=== PATIENT | male | born 1970 | race Caucasian/White ===

== ENCOUNTER 2017-07-13 12:02 | Inpatient (IN) | payer MEDICAID ==
[~2017-07-13] VITALS: Ht 177.8 cm; Wt 145.1 kg
[2017-07-13] MEDS ORDERED: Albuterol ud Inhalation HHN ONE (12:30)
[2017-07-13] MEDS ORDERED: Ipratropium 0.02% Inh Soln 2.5ml UD HHN ONE (12:30)
[2017-07-13] MEDS ORDERED: ZYLOPRIM300 MG ORAL (12:32)
[2017-07-13] MEDS ORDERED: METOPROLOL TART25 MG ORAL (12:32)
[2017-07-13] MEDS ORDERED: ZOCOR40 MG ORAL (12:32)
[2017-07-13] MEDS ORDERED: WARFARIN SODIUM4 MG ORAL (12:32)
[2017-07-13] MEDS ORDERED: METFORMIN HCL500 M1 ORAL (12:32)
[2017-07-13] MEDS ORDERED: FUROSEMIDE80 M1 ORAL (12:32)
[2017-07-13 13:10] LABS: HEMATOCRIT 48.7 % (42.0-52.0); MEAN CORPUSCULAR VOLUME 88 FL (80-99); PLATELET COUNT 321 K/UL (150-450); RED BLOOD COUNT 5.55 M/UL (4.70-6.10); RED CELL DISTRIBUTION WIDTH 15.3 % (11.6-14.8); WHITE BLOOD COUNT 11.4 K/UL (4.8-10.8)
[2017-07-13 13:16] LABS: ANION GAP 14 mmol/L (5-15); BLOOD UREA NITROGEN 22 mg/dL (7-18); CALCIUM 9.1 MG/DL (8.5-10.1); CARBON DIOXIDE 22 MMOL/L (21-32); CHLORIDE 102 MMOL/L (98-107); CREATININE 1.2 MG/DL (0.55-1.30); POTASSIUM 4.1 MMOL/L (3.5-5.1); SODIUM 138 MMOL/L (136-145)
[2017-07-13 13:36] LABS: ALANINE AMINOTRANSFERASE 40 U/L (12-78); ALBUMIN 3.1 G/DL (3.4-5.0); ALBUMIN/GLOBULIN RATIO 0.8 (1.0-2.7); ALKALINE PHOSPHATASE 92 U/L (46-116); ASPARTATE AMINO TRANSFERASE 32 U/L (15-37); BILIRUBIN,TOTAL 2.5 MG/DL (0.2-1.0); CKMB 1.6 NG/ML (0.0-3.6); CREATINE KINASE 69 U/L (26-308)
[2017-07-13 13:37] LABS: BILIRUBIN,DIRECT 1.1 MG/DL (0.0-0.3)
[2017-07-13 13:45] VITALS: BP 103/72
--- NOTE | 2017-07-13 14:05 | Emergency Room Report ---
History of Present Illness General Chief Complaint: Dyspnea/Respdistress Source: Patient, EMS Present Illness HPI 46-year-old male presents ED complaining of shortness of breath. Started this morning. Brought in by EMS. Wheezing. History of CHF and states he ran out of his Lasix yesterday. Denies any fevers or chills. Denies chest pain. States legs are very swollen. No other aggravating relieving factors. Denies any other associated symptoms Allergies: Coded Allergies: No Known Allergies (Unverified , 07/13/17) Patient History Past Medical History: CHF Past Surgical History: none Pertinent Family History: none Social History: Denies: smoking, alcohol use, drug use Immunizations: UTD Reviewed Nursing Documentation: PMH: Agreed; PSxH: Agreed Nursing Documentation-PMH Past Medical History: No History, Except For Hx Cardiac Problems: Yes - CHF, gout Review of Systems All Other Systems: negative except mentioned in HPI Physical Exam Vital Signs Date Time Temp Pulse Resp B/P (MAP) Pulse Ox O2 Delivery O2 Flow Rate FiO2 07/13/17 11:57 98.2 117 26 127/83 97 Room Air 98.2 07/13/17 12:35 2.0 28 Sp02 EP Interpretation: reviewed, normal General Appearance: no apparent distress, alert, GCS 15, non-toxic, obese Head: normocephalic, atraumatic Eyes: bilateral eye normal inspection, bilateral eye PERRL ENT: hearing grossly normal, normal pharynx, no angioedema, normal voice Neck: full range of motion, supple/symm/no masses Respiratory: chest non-tender, decreased breath sounds, speaking full sentences , wheezing Cardiovascular #1: regular rate, rhythm, no edema Cardiovascular #2: 2+ carotid (R), 2+ carotid (L), 2+ radial (R), 2+ radial (L) , 2+ dorsalis pedis (R), 2+ dorsalis pedis (L) Gastrointestinal: normal bowel sounds, non tender, soft, non-distended, no guarding, no rebound Rectal: deferred Genitourinary: normal inspection, no CVA tenderness Musculoskeletal: back normal, gait/station normal, normal range of motion, swelling - 2+ bilateral LEs Neurologic: alert, oriented x3, responsive, motor strength/tone normal, sensory intact, speech normal Psychiatric: judgement/insight normal, memory normal, mood/affect normal, no suicidal/homicidal ideation Reflexes: 3+ bicep (R), 3+ bicep (L), 3+ tricep (R), 3+ tricep (L), 3+ knee (R) , 3+ knee (L) Skin: normal color, no rash, warm/dry, well hydrated Lymphatic: no adenopathy Medical Decision Making Diagnostic Impression: Primary Impression: CHF (congestive heart failure) Qualified Codes: I50.9 - Heart failure, unspecified ER Course Hospital Course 46-year-old male presents ED complaining of shortness of breath, leg swelling Differential diagnoses include: CT/unstable angina, contusion, muscle strain, PTX, rib fracture Clinical course Patient placed on 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 After initial history and physical I ordered labs, EKG, chest x-ray labs reviewed- minimal leukocytosis, hemoglobin/hematocrit stable, electrolytes ok, trop > 0.06, BNP > 4000 EKG - NSR, no acute ischemic changes interpreted by me Chest x-ray- cardiomegaly, CHF aspiring given. Antibiotics given. Lasix given. Case discussed with Dr. Nina and he agreed to accept the patient to his service for further care and support I. I feel this is a highly complex case requiring extensive working including EKG/Rhythm strip, Xray/CT/US, Blood/urine lab work, repeat exams while in ED, and administration of strong opiates/narcotics for pain control, admission to hospital or close patient follow up. Diagnosis - CHF exacerbation admitted to telemetry in serious condition Labs Test 07/13/17 12:17 White Blood Count 11.4 K/UL (4.8-10.8) Red Blood Count 5.55 M/UL (4.70-6.10) Hemoglobin 15.0 G/DL (14.2-18.0) Hematocrit 48.7 % (42.0-52.0) Mean Corpuscular Volume 88 FL (80-99) Mean Corpuscular Hemoglobin 27.0 PG (27.0-31.0) Mean Corpuscular Hemoglobin Concent 30.8 G/DL (32.0-36.0) Red Cell Distribution Width 15.3 % (11.6-14.8) Platelet Count 321 K/UL (150-450) Mean Platelet Volume 6.9 FL (6.5-10.1) Neutrophils (%) (Auto) % (45.0-75.0) Lymphocytes (%) (Auto) % (20.0-45.0) Monocytes (%) (Auto) % (1.0-10.0) Eosinophils (%) (Auto) % (0.0-3.0) Basophils (%) (Auto) % (0.0-2.0) Differential Total Cells Counted 100 Neutrophils % (Manual) 72 % (45-75) Lymphocytes % (Manual) 17 % (20-45) Monocytes % (Manual) 11 % (1-10) Eosinophils % (Manual) 0 % (0-3) Basophils % (Manual) 0 % (0-2) Band Neutrophils 0 % (0-8) Platelet Estimate Adequate Platelet Morphology Normal Anisocytosis 1+ Sodium Level 138 MMOL/L (136-145) Potassium Level 4.1 MMOL/L (3.5-5.1) Chloride Level 102 MMOL/L (98-107) Carbon Dioxide Level 22 MMOL/L (21-32) Anion Gap 14 mmol/L (5-15) Blood Urea Nitrogen 22 mg/dL (7-18) Creatinine 1.2 MG/DL (0.55-1.30) Estimat Glomerular Filtration Rate > 60 mL/min (>60) Glucose Level 211 MG/DL (74-106) Lactic Acid Level 2.80 mmol/L (0.66-2.22) Calcium Level 9.1 MG/DL (8.5-10.1) Total Bilirubin 2.5 MG/DL (0.2-1.0) Direct Bilirubin 1.1 MG/DL (0.0-0.3) Aspartate Amino Transf (AST/SGOT) 32 U/L (15-37) Alanine Aminotransferase (ALT/SGPT) 40 U/L (12-78) Alkaline Phosphatase 92 U/L (46-116) Total Creatine Kinase 69 U/L (26-308) Creatine Kinase MB 1.6 NG/ML (0.0-3.6) Creatine Kinase MB Relative Index 2.3 Troponin I 0.062 ng/mL (0.000-0.056) Pro-B-Type Natriuretic Peptide 4945 pg/mL (0-125) Total Protein 7.0 G/DL (6.4-8.2) Albumin 3.1 G/DL (3.4-5.0) Globulin 3.9 g/dL Albumin/Globulin Ratio 0.8 (1.0-2.7) EKG Diagnostic Results Rate: normal ST Segments: no acute changes ASA given to the pt in ED: Yes Rhythm Strip Diag. Results EP Interpretation: yes Rhythm: NSR, no PVC's, no ectopy Chest X-Ray Diagnostic Results Chest X-Ray Diagnostic Results : Chest X-Ray Ordered: Yes # of Views/Limited/Complete: 1 View Indication: Shortness of Breath EP Interpretation: Yes Interpretation: no consolidation, no effusion, no pneumothorax, other - cardiomegaly. chf Impression: Other - chf Electronically Signed by: Electronically signed by Amadeo Valdez MD Last Vital Signs Date Time Temp Pulse Resp B/P (MAP) Pulse Ox O2 Delivery O2 Flow Rate FiO2 07/13/17 13:45 103 28 103/72 96 Nasal Cannula 2.0 07/13/17 12:44 28 07/13/17 11:57 98.2 98.2 Status: improved Disposition: ADMITTED INPATIENT Condition: Serious Referrals: NON PHYSICIAN (PCP) Amadeo Valdez MD July 13, 2017 14:05
--- NOTE | 2017-07-13 14:15 | Diagnostic Imaging Report ---
Indication: Cough Technique: One view of the chest Comparison: none Findings: Body habitus limits evaluation. The heart is enlarged. There is pleural fluid on the right. There is right perihilar and basilar atelectasis There is some right basilar opacity, likely combination of pleural fluid and infiltrate. Left lung and pleural space are clear Impression: Thyromegaly. Right basilar pleural fluid atelectasis, and likely infiltrate
[2017-07-13 14:40] VITALS: BP 115/62
[2017-07-13] MEDS: NovoLOG Insulin Flexpen SUBQ SCH ×2 (17:40→22:59)
[2017-07-13] MEDS ORDERED: Albuterol/Ipratropium 3ml neb HHN PRN (18:45)
--- NOTE | 2017-07-13 19:10 | Consultation ---
Consult Note Consult Note PULMONARY CONSULTATION REFERRING PHYSICIAN: Ronny Thompson MD REASON FOR CONSULTATION: SOB HPI: 46 yo morbidly obese male h/o CHF, MARSHA not on CPAP, PE on A/C, HTN, HL and DM p/w several days of inc SOB, PND, orthopnea, wheezing 2/2 being out of lasix. No F/C, no BAKER, no dizziness, no N/V/D/C. He has been on/off his meds x several months and recently got into the [facility] clinic but was unable to fill his Rx's 2/2 insurance issues. In the ER he was AFVSS x for ST, sating well on RA-2L, BNP elevated, trop elevated, CXR with PVC and b effusions. PMH: CHF, PE, MARSHA, DM, HTN, morbid obesity PSH: R hip surgery as a child' ALL: NKDA MEDS: Active Scripts Medications Dose Route/Sig Max Daily Dose Days Date Category Metoprolol Tartrate* (Metoprolol Tartrate) 25 Mg Tablet 25 Mg ORAL EVERY 12 HOURS 07/13/17 Reported Zocor (Simvastatin) 40 Mg Tablet 40 Mg ORAL BEDTIME 07/13/17 Reported Lasix* (Furosemide) 80 Mg Tablet 80 Mg ORAL BID 07/13/17 Reported Metformin Hcl* (Metformin HCl) 500 Mg Tablet 500 Mg ORAL TWICE A DAY 07/13/17 Reported Warfarin Sod* (Warfarin Sodium) 4 Mg Tablet 4 Mg ORAL DAILY 07/13/17 Reported Zyloprim* (Allopurinol) 300 Mg Tablet 300 Mg ORAL DAILY 07/13/17 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, out of work x 5 years, originally from [place], lives in [facility], single, no kids, no pets, no T/E/D use FHx: N/C ROS: Neg other than HPI PE: Last 24 Hour Vital Signs Date Time Temp Pulse Resp B/P (MAP) Pulse Ox O2 Delivery O2 Flow Rate FiO2 07/13/17 15:32 113 07/13/17 14:40 97.0 115 21 115/62 97 Nasal Cannula 2.0 97.0 07/13/17 14:20 98.1 106 21 113/78 97 Nasal Cannula 2.0 28 98.2 07/13/17 13:45 103 28 103/72 96 Nasal Cannula 2.0 07/13/17 12:44 115 22 98 Nasal Cannula 2.0 28 07/13/17 12:37 113 24 Nasal Cannula 2.0 28 07/13/17 12:35 113 24 95 Nasal Cannula 2.0 28 07/13/17 12:21 114 27 Room Air 07/13/17 11:57 98.2 117 26 127/83 97 Room Air 98.2 GEN: Obese male, mild respiratory distress HEENT: NC/AT, OPC c MP 4 NECK: Supple s LAD, JVD to AoM CHEST: Scattered EEW and BiB rales COR: Tachy but regular ABD: Dist, S/NT c NABS EXT: 4+ CHRISTA, no C/C, groin erythema and warmth CXR: PVC, b effusions Laboratory Tests Test 07/13/17 12:17 07/13/17 14:00 White Blood Count 11.4 K/UL (4.8-10.8) H Red Blood Count 5.55 M/UL (4.70-6.10) Hemoglobin 15.0 G/DL (14.2-18.0) Hematocrit 48.7 % (42.0-52.0) Mean Corpuscular Volume 88 FL (80-99) Mean Corpuscular Hemoglobin 27.0 PG (27.0-31.0) Mean Corpuscular Hemoglobin Concent 30.8 G/DL (32.0-36.0) L Red Cell Distribution Width 15.3 % (11.6-14.8) H Platelet Count 321 K/UL (150-450) Mean Platelet Volume 6.9 FL (6.5-10.1) Neutrophils (%) (Auto) % (45.0-75.0) Lymphocytes (%) (Auto) % (20.0-45.0) Monocytes (%) (Auto) % (1.0-10.0) Eosinophils (%) (Auto) % (0.0-3.0) Basophils (%) (Auto) % (0.0-2.0) Differential Total Cells Counted 100 Neutrophils % (Manual) 72 % (45-75) Lymphocytes % (Manual) 17 % (20-45) L Monocytes % (Manual) 11 % (1-10) H Eosinophils % (Manual) 0 % (0-3) Basophils % (Manual) 0 % (0-2) Band Neutrophils 0 % (0-8) Platelet Estimate Adequate Platelet Morphology Normal Anisocytosis 1+ Sodium Level 138 MMOL/L (136-145) Potassium Level 4.1 MMOL/L (3.5-5.1) Chloride Level 102 MMOL/L (98-107) Carbon Dioxide Level 22 MMOL/L (21-32) Anion Gap 14 mmol/L (5-15) Blood Urea Nitrogen 22 mg/dL (7-18) H Creatinine 1.2 MG/DL (0.55-1.30) Estimat Glomerular Filtration Rate > 60 mL/min (>60) Glucose Level 211 MG/DL (74-106) H Lactic Acid Level 2.80 mmol/L (0.66-2.22) H 2.00 mmol/L (0.66-2.22) Calcium Level 9.1 MG/DL (8.5-10.1) Total Bilirubin 2.5 MG/DL (0.2-1.0) H Direct Bilirubin 1.1 MG/DL (0.0-0.3) H Aspartate Amino Transf (AST/SGOT) 32 U/L (15-37) Alanine Aminotransferase (ALT/SGPT) 40 U/L (12-78) Alkaline Phosphatase 92 U/L (46-116) Total Creatine Kinase 69 U/L (26-308) Creatine Kinase MB 1.6 NG/ML (0.0-3.6) Creatine Kinase MB Relative Index 2.3 Troponin I 0.062 ng/mL (0.000-0.056) Pro-B-Type Natriuretic Peptide 4945 pg/mL (0-125) H Total Protein 7.0 G/DL (6.4-8.2) Albumin 3.1 G/DL (3.4-5.0) L Globulin 3.9 g/dL Albumin/Globulin Ratio 0.8 (1.0-2.7) L Assessment/Plan ASSESSMENT: * Acute hypoxemic RF 2/2 CHF with ADHF and underlying MARSHA * CHF with AHDF * Elevated cardiac biomarkers, likely demand ischemia * Morbid obesity * OSH/OHV, non-compliant with CPAP * Abnormal LFT's * H/O PE on A/C * Groin cellulitis * Abnormal LFT's * DM, HTN, HL PLAN: * Optimize pulmonary hygiene/mobilize as tolerated * Titrate down FiO2 to keep SaO2 > 90% * ABG * BiPAP 12/5 qHS and PRN * RTC and PRN HHN's * Increase Lasix to 80 IV BID * Monitor volumes and renal function * F/U TTE * F/U Duplex * F/U repeat ECG and TROPONIN * Check INR, resume COUMADIN per Rx * Start Vanco for groin cellulitis * Aspiration precautions * DVT Px: A/C * FC * evfl, needs to establish outpatient care Larry Daniels MD, [facility] Pul[facility] LARRY DANIELS M.D. July 13, 2017 19:10
--- NOTE | 2017-07-13 19:36 | Cardiology Progress Note ---
Assessment/Plan Assessment/Plan The patient is seen and examined, full consult note is dictated. Objective Last 24 Hour Vital Signs Date Time Temp Pulse Resp B/P (MAP) Pulse Ox O2 Delivery O2 Flow Rate FiO2 07/13/17 15:32 113 07/13/17 14:40 97.0 115 21 115/62 97 Nasal Cannula 2.0 97.0 07/13/17 14:20 98.1 106 21 113/78 97 Nasal Cannula 2.0 28 98.2 07/13/17 13:45 103 28 103/72 96 Nasal Cannula 2.0 07/13/17 12:44 115 22 98 Nasal Cannula 2.0 28 07/13/17 12:37 113 24 Nasal Cannula 2.0 28 07/13/17 12:35 113 24 95 Nasal Cannula 2.0 28 07/13/17 12:21 114 27 Room Air 07/13/17 11:57 98.2 117 26 127/83 97 Room Air 98.2 Laboratory Tests Test 07/13/17 12:17 07/13/17 14:00 07/13/17 19:00 07/13/17 19:20 White Blood Count 11.4 K/UL (4.8-10.8) H Red Blood Count 5.55 M/UL (4.70-6.10) Hemoglobin 15.0 G/DL (14.2-18.0) Hematocrit 48.7 % (42.0-52.0) Mean Corpuscular Volume 88 FL (80-99) Mean Corpuscular Hemoglobin 27.0 PG (27.0-31.0) Mean Corpuscular Hemoglobin Concent 30.8 G/DL (32.0-36.0) L Red Cell Distribution Width 15.3 % (11.6-14.8) H Platelet Count 321 K/UL (150-450) Mean Platelet Volume 6.9 FL (6.5-10.1) Neutrophils (%) (Auto) % (45.0-75.0) Lymphocytes (%) (Auto) % (20.0-45.0) Monocytes (%) (Auto) % (1.0-10.0) Eosinophils (%) (Auto) % (0.0-3.0) Basophils (%) (Auto) % (0.0-2.0) Differential Total Cells Counted 100 Neutrophils % (Manual) 72 % (45-75) Lymphocytes % (Manual) 17 % (20-45) L Monocytes % (Manual) 11 % (1-10) H Eosinophils % (Manual) 0 % (0-3) Basophils % (Manual) 0 % (0-2) Band Neutrophils 0 % (0-8) Platelet Estimate Adequate Platelet Morphology Normal Anisocytosis 1+ Sodium Level 138 MMOL/L (136-145) Potassium Level 4.1 MMOL/L (3.5-5.1) Chloride Level 102 MMOL/L (98-107) Carbon Dioxide Level 22 MMOL/L (21-32) Anion Gap 14 mmol/L (5-15) Blood Urea Nitrogen 22 mg/dL (7-18) H Creatinine 1.2 MG/DL (0.55-1.30) Estimat Glomerular Filtration Rate > 60 mL/min (>60) Glucose Level 211 MG/DL (74-106) H Lactic Acid Level 2.80 mmol/L (0.66-2.22) H 2.00 mmol/L (0.66-2.22) Calcium Level 9.1 MG/DL (8.5-10.1) Total Bilirubin 2.5 MG/DL (0.2-1.0) H Direct Bilirubin 1.1 MG/DL (0.0-0.3) H Aspartate Amino Transf (AST/SGOT) 32 U/L (15-37) Alanine Aminotransferase (ALT/SGPT) 40 U/L (12-78) Alkaline Phosphatase 92 U/L (46-116) Total Creatine Kinase 69 U/L (26-308) Creatine Kinase MB 1.6 NG/ML (0.0-3.6) Creatine Kinase MB Relative Index 2.3 Troponin I 0.062 ng/mL (0.000-0.056) Pending Pro-B-Type Natriuretic Peptide 4945 pg/mL (0-125) H Pending Total Protein 7.0 G/DL (6.4-8.2) Albumin 3.1 G/DL (3.4-5.0) L Globulin 3.9 g/dL Albumin/Globulin Ratio 0.8 (1.0-2.7) L Prothrombin Time Pending Prothromb Time International Ratio Pending D-Dimer Pending Arterial Blood pH 7.474 (7.350-7.450) Arterial Blood Partial Pressure CO2 35.1 mmHg (35.0-45.0) Arterial Blood Partial Pressure O2 111.6 mmHg (75.0-100.0) H Arterial Blood HCO3 25.2 mmol/L (22.0-26.0) Arterial Blood Oxygen Saturation 98.2 % (92.0-98.0) H Arterial Blood Base Excess 2.0 Lazaro Test Positive Sergio Dumas MD July 13, 2017 19:36
[2017-07-13] MEDS: Albuterol/Ipratropium 3ml neb HHN SCH (19:57)
[2017-07-13 20:20] LABS: INR 2.8 (0.9-1.1)
[2017-07-13] MEDS ORDERED: Furosemide 80mg tab ORAL SCH (21:00)
[2017-07-13] MEDS ORDERED: Metoprolol 25mg tab ORAL SCH (21:00)
[2017-07-13] MEDS ORDERED: Vancomycin 2 GM in D5W 500ml 550 ML IVPB ONE (21:00)
--- NOTE | 2017-07-13 21:45 | Consultation ---
DATE OF CONSULTATION: 07/13/2017 CARDIOLOGY CONSULTATION CONSULTING PHYSICIAN: Sergio Dumas M.D. REFERRING PHYSICIAN: Ronny Nina M.D. REASON FOR CONSULTATION: Management of shortness of breath. HISTORY OF PRESENT ILLNESS: The patient is a very unfortunate 46-year-old gentleman, who presents to the emergency department with complaints of shortness of breath that started just about a day. He claims that he had ran out of Lasix. He was diagnosed with congestive heart failure just above 5 years ago and sporadically, he has been seeing senior training and development rep, who prescribed a variety of heart failure regimen including carvedilol, which was later switched to metoprolol and diuretics. He claims that he was diagnosed with nonischemic cardiomyopathy, but had no prior history of coronary angiography or left heart catheterization done in the past. He has developed severe scrotal edema as well as bilateral lower extremity edema. He claims that he has not been ambulatory in the past month. His vital signs on arrival to the hospital, blood pressure is 127/83 mmHg and heart rate of 117. A 12-lead electrocardiogram in the emergency department had revealed sinus tachycardia at a rate of 117 with low voltage QRS. He was admitted to telemetry for further evaluation and management of shortness of breath and possibly heart failure. Cardiology consultation was made at the request of Dr. Nina. PAST MEDICAL HISTORY: 1. History of pulmonary embolism. 2. History of congestive heart failure/nonischemic cardiomyopathy. 3. Noncompliance with medication. 4. Diabetes mellitus. 5. Dyslipidemia. 6. Gout. PAST SURGICAL HISTORY: None. MEDICATIONS: List of medications including furosemide 80 mg twice daily, allopurinol 300 mg daily, metformin 500 mg twice daily, metoprolol 25 mg daily twice daily, simvastatin 40 mg at bedtime, and warfarin 4 mg p.o. daily. FAMILY HISTORY: Claims that uncles of heart failure and his dad in young age of unknown cause. SOCIAL HISTORY: He had some habits of heavy drinking when he 20 years old until 26 years old. Denies any tobacco use. He had tried marijuana in the past, but denies any history of long-term cocaine or methamphetamine use. REVIEW OF SYSTEMS: HEENT: Denies any headache, diplopia, or blurred vision. CONSTITUTIONAL: Denies any fever, chills, or night sweats. CARDIOVASCULAR: Denies any chest pain. He has got shortness of breath with less than ordinary activity, bilateral lower extremity edema, scrotal edema, PND, and orthopnea, but no syncope. PULMONARY: Shortness of breath and wheezing. Denies any hemoptysis. GASTROINTESTINAL: Denies any nausea, vomiting, diarrhea, constipation, abdominal pain, or GI bleed. GENITOURINARY: Scrotal edema. Denies any hematuria, dysuria, or incontinence. NEUROLOGY: Denies any motor dysfunction, sensory deficit, or altered speech. MUSCULOSKELETAL: Lower extremity edema and inability to walk in the past month. PHYSICAL EXAMINATION: VITAL SIGNS: Blood pressure at the time of arrival to the hospital was 127/83, respirations of 26, pulse of 117, temperature 98.2 degrees Fahrenheit, and O2 saturation was 97% on room air. GENERAL: The patient is a very unfortunate 46-year-old gentleman, seen in Cardiology consultation in mild respiratory distress. HEENT: Atraumatic and normocephalic. Anicteric. Pupils are equal, round, and reactive to light and accommodation. Extraocular muscles intact. NECK: Hard to evaluate JVD. No carotid bruit. Carotid upstrokes 2+ bilaterally. CARDIOVASCULAR: Normal S1 and S2. Tachycardic. Positive S3. PMI is at fourth intercostal space at the midclavicular line. LUNGS: Diminished breath sounds in both bases, some scattered crackles, and rhonchi. ABDOMEN: Distended. I do not appreciate any hepatosplenomegaly. Positive bowel sounds. EXTREMITIES: There is 3+ to 4+ bilateral lower extremity edema as well as scrotal edema. DIAGNOSTIC DATA: A chest x-ray shows cardiomegaly with evidence of pulmonary vascular congestion and possible right pleural effusion. LABORATORY FINDINGS: WBC 11.4, hemoglobin 15.0, hematocrit of 48.7, and platelet count is 321,000. Chemistry showed sodium 138, potassium is 4.1, chloride 102, bicarbonate 22, BUN of 22, creatinine 1.2, glucose is 311, and calcium is 9.1. Total bilirubin is 2.5. ProBNP was 4945 and INR is still pending. A 12-lead electrocardiogram shows sinus tachycardia at the rate of 117 with low voltage due to obesity versus pericardial effusion, possible anteroseptal infarct versus a horizontal heart. ASSESSMENT AND PLAN: The patient is a very unfortunate 46-year-old gentleman seen in Cardiology consultation. 1. Dyspnea most likely acute exacerbation of heart failure. There might be some element of right heart failure as the patient has anasarca including scrotal edema and lower extremity edema, probably some degree of ascites as well as some degree of increase in bilirubin likely due to passive hepatic congestion or nutmeg liver. We are awaiting to get a report of 2D echocardiography. We will review the images. In the meantime, I agree with high dose intravenous furosemide. I would like to also switch back to carvedilol and slowly introduce MARGE inhibitor and aldosterone antagonist. 2. History of nonischemic cardiomyopathy. 3. Slight elevation of troponin I level could be due to myocarditis, doubt this is acute coronary syndrome given lack of chest pain. We will continue serial troponin I measurements. 4. History of pulmonary embolism. On warfarin. INR target between 2 to 3. 5. Diabetes mellitus. On metformin. I would like to thank, , for the courtesy of this consultation. Sergio Dumas M.D. DR: HUE JOB#: [id number] CC:
--- NOTE | 2017-07-13 22:52 | General Progress Note ---
Assessment/Plan Assessment/Plan GI Consult Dictated Likely passive hepatic congestion check Abd U/S Will follow Thank you Miki Constantino MD Subjective Allergies: Coded Allergies: No Known Allergies (Unverified , 07/13/17) Objective Last 24 Hour Vital Signs Date Time Temp Pulse Resp B/P (MAP) Pulse Ox O2 Delivery O2 Flow Rate FiO2 07/13/17 20:06 77 18 97 Nasal Cannula 2.0 28 07/13/17 20:06 Nasal Cannula 2.0 28 07/13/17 19:57 77 24 97 Nasal Cannula 2.0 28 07/13/17 15:32 113 07/13/17 14:40 97.0 115 21 115/62 97 Nasal Cannula 2.0 97.0 07/13/17 14:20 98.1 106 21 113/78 97 Nasal Cannula 2.0 28 98.2 07/13/17 13:45 103 28 103/72 96 Nasal Cannula 2.0 07/13/17 12:44 115 22 98 Nasal Cannula 2.0 28 07/13/17 12:37 113 24 Nasal Cannula 2.0 28 07/13/17 12:35 113 24 95 Nasal Cannula 2.0 28 07/13/17 12:21 114 27 Room Air 07/13/17 11:57 98.2 117 26 127/83 97 Room Air 98.2 Laboratory Tests 07/13/17 12:17: White Blood Count 11.4H, Red Blood Count 5.55, Hemoglobin 15.0, Hematocrit 48.7 , Mean Corpuscular Volume 88, Mean Corpuscular Hemoglobin 27.0, Mean Corpuscular Hemoglobin Concent 30.8L, Red Cell Distribution Width 15.3H, Platelet Count 321, Mean Platelet Volume 6.9, Neutrophils (%) (Auto) , Lymphocytes (%) (Auto) , Monocytes (%) (Auto) , Eosinophils (%) (Auto) , Basophils (%) (Auto) , Differential Total Cells Counted 100, Neutrophils % ( Manual) 72, Lymphocytes % (Manual) 17L, Monocytes % (Manual) 11H, Eosinophils % (Manual) 0, Basophils % (Manual) 0, Band Neutrophils 0, Platelet Estimate Adequate, Platelet Morphology Normal, Anisocytosis 1+, Sodium Level 138, Potassium Level 4.1, Chloride Level 102, Carbon Dioxide Level 22, Anion Gap 14, Blood Urea Nitrogen 22H, Creatinine 1.2, Estimat Glomerular Filtration Rate > 60 , Glucose Level 211H, Lactic Acid Level 2.80H, Calcium Level 9.1, Total Bilirubin 2.5H, Direct Bilirubin 1.1H, Aspartate Amino Transf (AST/SGOT) 32, Alanine Aminotransferase (ALT/SGPT) 40, Alkaline Phosphatase 92, Total Creatine Kinase 69, Creatine Kinase MB 1.6, Creatine Kinase MB Relative Index 2.3, Troponin I 0.062H, Pro-B-Type Natriuretic Peptide 4945H, Total Protein 7.0, Albumin 3.1L, Globulin 3.9, Albumin/Globulin Ratio 0.8L 07/13/17 14:00: Lactic Acid Level 2.00 07/13/17 19:00: Troponin I 0.069H, Pro-B-Type Natriuretic Peptide 5615H, Prothrombin Time 28.2H , Prothromb Time International Ratio 2.8H, D-Dimer 0.79H 07/13/17 19:20: Arterial Blood pH 7.474H, Arterial Blood Partial Pressure CO2 35.1, Arterial Blood Partial Pressure O2 111.6H, Arterial Blood HCO3 25.2, Arterial Blood Oxygen Saturation 98.2H, Arterial Blood Base Excess 2.0, Lazaro Test Positive Height (Feet): 5 Height (Inches): 10.00 Weight (Pounds): 370 Miki Constantino MD July 13, 2017 22:52
[2017-07-13] MEDS: Atorvastatin 20mg tab ORAL SCH (22:53)
[2017-07-14] MEDS: Albuterol/Ipratropium 3ml neb HHN SCH ×4 (01:16→19:00)
--- NOTE | 2017-07-14 04:45 | Consultation ---
DATE OF CONSULTATION: 07/13/2017 GASTROENTEROLOGY CONSULTATION CONSULTING PHYSICIAN: Miki Constantino M.D. CHIEF COMPLAINT: I was asked to see this patient for evaluation of abnormal liver tests. HISTORY OF PRESENT ILLNESS: The patient is an obese, pleasant 46-year-old white man, who was brought to the hospital for evaluation. The patient denies any abdominal pain or history of liver disease or hepatitis. He does have a significant degree of cardiomyopathy and is currently in congestive heart failure with edema and pulmonary symptoms. The patient cannot recall his hepatitis B or C serologies. PAST MEDICAL HISTORY: History of morbid obesity, history of congestive heart failure, and history of edema. PAST SURGICAL HISTORY: Status post right hip surgery. SOCIAL HISTORY: The patient is single. He does not smoke or drink alcohol. PHYSICAL EXAMINATION: GENERAL: This is a pleasant obese white man, seen in his room. HEENT: Normocephalic and atraumatic. Sclerae are anicteric. Oropharynx clear. NECK: Supple. CHEST: Revealed scattered rhonchi and rales. CARDIOVASCULAR: Revealed a regular rate. ABDOMEN: Soft, obese. EXTREMITIES: mild edema. NEUROLOGIC: Nonfocal. LABORATORY DATA: Noted. ASSESSMENT: This patient presents with morbid obesity as well as congestive heart failure and likely right-sided congestion. The patient should have his liver test followed while his cardiac status is optimized. I will also check hepatitis B and C serologies to make sure he does not have abnormal liver tests from the disorders. RECOMMENDATIONS: Per above discussion and per orders written in the chart. Thank you for asking me to participate in the care of this patient. Miki Constantino M.D. DR: LAWRENCE JOB#: [id number] CC: MAMTA
[2017-07-14] MEDS ORDERED: Vancomycin 1gm/D5W 275ml IVPB SCH ×2 (06:00)
[2017-07-14] MEDS: NovoLOG Insulin Flexpen SUBQ SCH ×4 (06:43→20:35)
[2017-07-14] MEDS: Aspirin Baby 81mg NG SCH (08:28)
[2017-07-14] MEDS: Vancomycin 1gm/D5W 275ml IVPB SCH ×4 (08:34→17:34)
[2017-07-14 08:47] LABS: BASOPHILS % (AUTO) 0.6 % (0.0-2.0); EOSINOPHILS % (AUTO) 0.8 % (0.0-3.0); HEMATOCRIT 42.4 % (42.0-52.0); HEMOGLOBIN 13.6 G/DL (14.2-18.0); LYMPHOCYTES % (AUTO) 12.3 % (20.0-45.0); MEAN CORPUSCULAR VOLUME 88 FL (80-99); MONOCYTES % (AUTO) 5.8 % (1.0-10.0); NEUTROPHILS % (AUTO) 80.4 % (45.0-75.0); PLATELET COUNT 280 K/UL (150-450); RED BLOOD COUNT 4.84 M/UL (4.70-6.10); RED CELL DISTRIBUTION WIDTH 15.5 % (11.6-14.8)
[2017-07-14 09:18] LABS: INR 2.6 (0.9-1.1)
[2017-07-14 09:51] LABS: ALANINE AMINOTRANSFERASE 32 U/L (12-78); ALBUMIN 2.8 G/DL (3.4-5.0); ALBUMIN/GLOBULIN RATIO 0.8 (1.0-2.7); ALKALINE PHOSPHATASE 75 U/L (46-116); ANION GAP 10 mmol/L (5-15); ASPARTATE AMINO TRANSFERASE 22 U/L (15-37); BILIRUBIN,TOTAL 2.4 MG/DL (0.2-1.0); BLOOD UREA NITROGEN 19 mg/dL (7-18); CALCIUM 8.9 MG/DL (8.5-10.1); CARBON DIOXIDE 27 MMOL/L (21-32); CHLORIDE 103 MMOL/L (98-107); CHOLESTEROL 58 MG/DL (< 200); HDL CHOLESTEROL 19 MG/DL (40-60); POTASSIUM 3.7 MMOL/L (3.5-5.1); SODIUM 140 MMOL/L (136-145); TRIGLYCERIDES 81 MG/DL (30-150)
[2017-07-14 10:12] LABS: BILIRUBIN,DIRECT 0.9 MG/DL (0.0-0.3)
[2017-07-14 13:46] LABS: APPEARANCE,URINE SLIGHTLY CLOUDY; BILIRUBIN, URINE NEGATIVE (NEGATIVE); GLUCOSE, URINE (UA) NEGATIVE (NEGATIVE); KETONES,URINE NEGATIVE (NEGATIVE); LEUKOCYTE ESTERASE ,URINE 3+ (NEGATIVE); NITRITE,URINE NEGATIVE (NEGATIVE); PH,URINE 5 (4.5-8.0); PROTEIN,URINE 2+ (NEGATIVE); UROBILINOGEN,URINE 4 MG/DL (0.0-1.0)
[2017-07-14 13:54] LABS: COLOR,URINE YELLOW
--- NOTE | 2017-07-14 13:57 | Pulmonology Progress Note ---
Assessment/Plan Assessment/Plan ASSESSMENT: * Acute hypoxemic RF 2/2 CHF with ADHF and underlying MARSHA * CHF with AHDF * Elevated cardiac biomarkers, likely demand ischemia * Morbid obesity * OSH/OHV, non-compliant with CPAP * Abnormal LFT's * H/O PE on A/C * Groin cellulitis * Abnormal LFT's * DM, HTN, HL PLAN: * Optimize pulmonary hygiene/mobilize as tolerated * Titrate down FiO2 to keep SaO2 > 90% * BiPAP 12/5 qHS and PRN * RTC and PRN HHN's * Continue Lasix 80 IV BID as tolerated * Monitor volumes and renal function * F/U TTE * F/U cardiology recs * COUMADIN per Rx * Vanco and Levaquin per ID * Aspiration precautions * DVT Px: A/C * FC * SW eval, needs to establish outpatient care Larry Daniels MD, FCCP Pulmonary [facility] Critical Care Medicine Subjective Allergies: Coded Allergies: No Known Allergies (Unverified , 07/13/17) Subjective AFVSS x ST, - 2.7, stable O2 needs, did not use BiPAP Less SOB, no cough, less orthopnea, no PND, less CHRISTA, no NVDC, feels better overall Objective Last 24 Hour Vital Signs Date Time Temp Pulse Resp B/P (MAP) Pulse Ox O2 Delivery O2 Flow Rate FiO2 07/14/17 12:30 Nasal Cannula 07/14/17 12:30 Nasal Cannula 07/14/17 11:41 111 07/14/17 08:34 108 144/72 07/14/17 07:48 85 18 98 Nasal Cannula 2.0 07/14/17 07:40 108 07/14/17 07:36 Nasal Cannula 2.0 28 07/14/17 07:36 80 20 96 Nasal Cannula 2.0 28 07/14/17 07:36 96 Nasal Cannula 2.0 28 07/14/17 04:00 99 07/14/17 01:26 87 18 97 Nasal Cannula 2.0 28 07/14/17 01:16 82 24 97 Nasal Cannula 2.0 28 07/14/17 00:00 113 07/13/17 22:53 57 111/78 07/13/17 20:06 77 18 97 Nasal Cannula 2.0 28 07/13/17 20:06 Nasal Cannula 2.0 28 07/13/17 20:00 106 07/13/17 19:57 77 24 97 Nasal Cannula 2.0 28 07/13/17 15:32 113 07/13/17 14:40 97.0 115 21 115/62 97 Nasal Cannula 2.0 97.0 07/13/17 14:20 98.1 106 21 113/78 97 Nasal Cannula 2.0 28 98.2 Intake and Output 07/13/17 07/14/17 19:00 07:00 Intake Total 0 ml Output Total 500 ml 2200 ml Balance -500 ml -2200 ml Intake Oral 0 ml Output Urine Total 500 ml 2200 ml General Appearance: no acute distress, other - morbidly obese male HEENT: normocephalic, atraumatic, anicteric, mucous membranes moist Respiratory/Chest: chest wall non-tender, lungs clear - but distant and with faint BiB rales Cardiovascular: normal peripheral pulses, regular rhythm, tachycardia Abdomen: normal bowel sounds, soft, non tender, no organomegaly, non distended Genitourinary: other - Groin erythema better Extremities: no cyanosis, no clubbing, other - 1-2+ CHRISTA Laboratory Tests 07/13/17 14:00: Lactic Acid Level 2.00 07/13/17 19:00: Prothrombin Time 28.2H, Prothromb Time International Ratio 2.8H, D-Dimer 0.79H, Troponin I 0.069H, Pro-B-Type Natriuretic Peptide 5615H 07/13/17 19:20: Arterial Blood pH 7.474H, Arterial Blood Partial Pressure CO2 35.1, Arterial Blood Partial Pressure O2 111.6H, Arterial Blood HCO3 25.2, Arterial Blood Oxygen Saturation 98.2H, Arterial Blood Base Excess 2.0, Lazaro Test Positive 07/14/17 06:50: Prothrombin Time 26.2H, Prothromb Time International Ratio 2.6H, White Blood Count 9.0, Red Blood Count 4.84, Hemoglobin 13.6L, Hematocrit 42.4, Mean Corpuscular Volume 88, Mean Corpuscular Hemoglobin 28.1, Mean Corpuscular Hemoglobin Concent 32.0, Red Cell Distribution Width 15.5H, Platelet Count 280, Mean Platelet Volume 6.3L, Neutrophils (%) (Auto) 80.4H, Lymphocytes (%) (Auto) 12.3L, Monocytes (%) (Auto) 5.8, Eosinophils (%) (Auto) 0.8, Basophils (%) (Auto ) 0.6, Sodium Level 140, Potassium Level 3.7, Chloride Level 103, Carbon Dioxide Level 27, Anion Gap 10, Blood Urea Nitrogen 19H, Creatinine 1.0, Estimat Glomerular Filtration Rate > 60, Glucose Level 137H, Hemoglobin A1c 8.5H , Calcium Level 8.9, Total Bilirubin 2.4H, Direct Bilirubin 0.9H, Aspartate Amino Transf (AST/SGOT) 22, Alanine Aminotransferase (ALT/SGPT) 32, Alkaline Phosphatase 75, Total Protein 6.3L, Albumin 2.8L, Globulin 3.5, Albumin/ Globulin Ratio 0.8L, Triglycerides Level 81, Cholesterol Level 58, LDL Cholesterol 37, HDL Cholesterol 19L, Cholesterol/HDL Ratio 3.1L, Hepatitis A IgM Antibody [Pending], Hepatitis B Surface Antigen [Pending], Hepatitis B Core IgM Antibody [Pending], Hepatitis C Antibody [Pending] 07/14/17 13:20: Urine Color [Pending], Urine Appearance [Pending], Urine pH [Pending], Urine Specific [place] [Pending], Urine Protein [Pending], Urine Glucose (UA) [Pending ], Urine Ketones [Pending], Urine Occult Blood [Pending], Urine Nitrite [Pending ], Urine Bilirubin [Pending], Urine Urobilinogen [Pending], Urine Leukocyte Esterase [Pending], Urine RBC [Pending], Urine WBC [Pending], Urine Squamous Epithelial Cells [Pending], Urine Bacteria [Pending] Current Medications Medications (Trade) Dose Ordered Sig/Dago Route PRN Reason Start Time Stop Time Status Last Admin Dose Admin Acetaminophen (Tylenol) 650 mg Q4H PRN ORAL Mild Pain/Temp > 100.5 07/13/17 16:30 08/12/17 16:29 Albuterol/ Ipratropium (Albuterol/ Ipratropium) 3 ml Q4H PRN HHN Shortness of Breath 07/13/17 18:45 07/18/17 18:44 Albuterol/ Ipratropium (Albuterol/ Ipratropium) 3 ml Q6HRT HHN 07/13/17 19:00 5/20/18 18:59 07/14/17 07:42 Allopurinol (Allopurinol) 300 mg DAILY ORAL 07/14/17 09:00 08/13/17 08:59 07/14/17 08:28 Aspirin (ASA) 81 mg DAILY NG 07/14/17 09:00 08/13/17 08:59 07/14/17 08:28 Atorvastatin Calcium (Lipitor) 20 mg BEDTIME ORAL 07/13/17 21:00 08/12/17 20:59 07/13/17 22:53 Carvedilol (Coreg) 3.125 mg EVERY 12 HOURS ORAL 07/13/17 21:00 08/12/17 20:59 07/14/17 08:34 Dextrose (Dextrose 50%) 25 ml STAT PRN IV Hypoglycemia 07/13/17 15:45 08/12/17 15:44 Dextrose (Dextrose 50%) 50 ml STAT PRN IV Hypoglycemia 07/13/17 15:45 08/12/17 15:44 Furosemide (Lasix) 80 mg Q12HR IV 07/13/17 23:37 08/12/17 23:36 07/14/17 08:29 Insulin Aspart (NovoLOG) BEFORE MEALS AND HS SUBQ 07/13/17 17:30 08/12/17 17:29 07/14/17 12:21 Levofloxacin (Levaquin) 750 mg Q24H ORAL 07/14/17 13:00 07/21/17 12:59 Vancomycin HCl (Vanco rx to dose) 1 ea DAILY PRN MISC Per rx protocol 07/13/17 19:00 08/12/17 18:59 Vancomycin HCl 1 gm/Dextrose 275 ml @ 183.708 mls/hr Q8H IVPB 07/14/17 09:00 07/19/17 08:59 07/14/17 08:34 Warfarin Sodium (Coumadin per pharmacy) 1 ea DAILY PRN MISC Per rx protocol 07/13/17 18:45 08/12/17 18:44 Warfarin Sodium (Coumadin) 4 mg COUMADIN PO 07/14/17 17:00 07/14/17 18:00 LARRY DANIELS M.D. July 14, 2017 13:57
--- NOTE | 2017-07-14 16:13 | Cardiology Report ---
APPROVED REPORT EXAM: Two-dimensional and M-mode echocardiogram with Doppler and color Doppler. INDICATION Congestive Heart Failure M-Mode DIMENSIONS IVSd1.4 (0.7-1.1cm)Left Atrium (MM)4.3 (1.6-4.0cm) LVDd7.0 (3.5-5.6cm)Aortic Root2.9 (2.0-3.7cm) PWd1.0 (0.7-1.1cm)Aortic Cusp Exc.2.2 (1.5-2.0cm) LVDs4.6 (2.5-4.0cm) PWs1.2 cm Technically difficult study due to patient body habitus. Study quality precludes accurate assessment of regional wall motion. Moderate left ventricular enlargement. Global left ventricular hypokinesis. Left ventricular ejection fraction estimated to be 15-20 %. Mild left ventricular hypertrophy. No evidence of pericardial effusion. Mild left atrial enlargement. Left atrial size at upper limits of normal. Right cardiac chamber sizes are within normal limits. Focal aortic valve sclerosis with adequate cusp excursion. Mildly thickened mitral valve leaflets with normal excursion. Mild mitral annulus and aortic root calcification. Normal pulmonic valve structure. Normal tricuspid valve structure. IVC dilated at 2.9 cm without physiological collapse, estimated RAP is 20 mmHg. A color flow and spectral Doppler study was performed and revealed: Trace aortic insufficiency. Moderate mitral regurgitation. Mitral diastolic velocities suggest mild left ventricular diastolic dysfunction (Grade I). Mild tricuspid regurgitation. Tricuspid systolic velocities suggests peak right ventricular systolic pressure of 63 mmHg, consistent with severe pulmonary hypertension. Mild pulmonic regurgitation present.
--- NOTE | 2017-07-14 16:29 | Cardiology Report ---
APPROVED REPORT EKG Measurement Heart [id number] Sinus tachycardia Low voltage QRS Septal infarct, age undetermined Abnormal ECG
--- NOTE | 2017-07-14 16:36 | Diagnostic Imaging Report ---
Indication: Abnormal liver function tests. Abnormal renal function tests Technique: Rodriguez-scale and duplex images of the upper abdomen were obtained Comparison: none Findings: Exam is limited due to patient body habitus and bowel gas Gallbladder demonstrates wall thickening, gallbladder wall thickness 7 mm. No definite gallstones. Sonographic Quintero's sign is negative. Common bile duct measures 8 mm in diameter. No intrahepatic biliary ductal dilatation. Liver appears enlarged, demonstrates equivocal surface nodularity. Normal echogenicity. No focal abnormality. Portal vein and hepatic veins are patent. Pancreas is incompletely visualized due to overlying bowel gas, visualized portions are unremarkable. The spleen cannot be visualized. The left kidney could not be visualized. Right kidney measures 12.4 cm length. It demonstrates normal echogenicity There is no hydronephrosis. No focal abnormality . Abdominal aorta is partially obscured by bowel gas, visualized portions are non-aneurysmal . Small amount of ascites fluid. There is a small right pleural effusion Impression: Limited exam, as described. Note nonvisualization of the spleen, left kidney, portions of the pancreas and abdominal aorta Small amount of ascites Right-sided pleural effusion Negative for gallstones. There is gallbladder wall thickening. This is most likely due to the hemodynamic derangements causing the pleural fluid and ascites. Less likely, this could indicate acute acalculous cholecystitis or acute cholecystitis secondary to sonographically occult calculus. Consider hepatobiliary nuclear study as there is high clinical suspicion Hepatomegaly Equivocal hepatic surface nodularity, could indicate early cirrhotic change
--- NOTE | 2017-07-14 16:59 | Cardiology Report ---
APPROVED REPORT EKG Measurement Heart [id number] Sinus tachycardia with premature supraventricular complexes Low voltage QRS Cannot rule out Anteroseptal infarct, age undetermined Abnormal ECG
[2017-07-14] MEDS ORDERED: Warfarin Sodium 4mg PO SCH (17:00)
[2017-07-14] MEDS: Atorvastatin 20mg tab ORAL SCH (20:32)
--- NOTE | 2017-07-14 20:32 | General Progress Note ---
Assessment/Plan Assessment/Plan Assessment - CM/CHF - abnormal LFT - ?passive congestion - ? fatty liver - ? KELLY/fibrosis Recommendations - follow LFT - f/u hepatitis serologies - cardiology f/u Subjective Allergies: Coded Allergies: No Known Allergies (Unverified , 07/13/17) Subjective Feels OK no abdominal pain labs noted Objective Last 24 Hour Vital Signs Date Time Temp Pulse Resp B/P (MAP) Pulse Ox O2 Delivery O2 Flow Rate FiO2 07/14/17 20:15 105 18 96 Nasal Cannula 2.0 28 07/14/17 19:56 Nasal Cannula 2.0 28 07/14/17 19:56 110 18 96 Nasal Cannula 2.0 07/14/17 19:55 96 Nasal Cannula 2.0 07/14/17 19:55 96 Nasal Cannula 2.0 07/14/17 15:52 111 07/14/17 12:30 Nasal Cannula 07/14/17 12:30 Nasal Cannula 07/14/17 11:41 111 07/14/17 08:34 108 144/72 07/14/17 07:48 85 18 98 Nasal Cannula 2.0 07/14/17 07:40 108 07/14/17 07:36 Nasal Cannula 2.0 07/14/17 07:36 80 20 96 Nasal Cannula 2.0 07/14/17 07:36 96 Nasal Cannula 2.0 07/14/17 04:00 99 07/14/17 01:26 87 18 97 Nasal Cannula 2.0 07/14/17 01:16 82 24 97 Nasal Cannula 2.0 07/14/17 00:00 113 07/13/17 22:53 57 111/78 Intake and Output 07/13/17 07/14/17 19:00 07:00 Intake Total 0 ml Output Total 500 ml 2200 ml Balance -500 ml -2200 ml Intake Oral 0 ml Output Urine Total 500 ml 2200 ml Laboratory Tests 07/14/17 06:50: White Blood Count 9.0, Red Blood Count 4.84, Hemoglobin 13.6L, Hematocrit 42.4, Mean Corpuscular Volume 88, Mean Corpuscular Hemoglobin 28.1, Mean Corpuscular Hemoglobin Concent 32.0, Red Cell Distribution Width 15.5H, Platelet Count 280, Mean Platelet Volume 6.3L, Neutrophils (%) (Auto) 80.4H, Lymphocytes (%) (Auto) 12.3L, Monocytes (%) (Auto) 5.8, Eosinophils (%) (Auto) 0.8, Basophils (%) (Auto ) 0.6, Prothrombin Time 26.2H, Prothromb Time International Ratio 2.6H, Sodium Level 140, Potassium Level 3.7, Chloride Level 103, Carbon Dioxide Level 27, Anion Gap 10, Blood Urea Nitrogen 19H, Creatinine 1.0, Estimat Glomerular Filtration Rate > 60, Glucose Level 137H, Hemoglobin A1c 8.5H, Calcium Level 8.9 , Total Bilirubin 2.4H, Direct Bilirubin 0.9H, Aspartate Amino Transf (AST/SGOT ) 22, Alanine Aminotransferase (ALT/SGPT) 32, Alkaline Phosphatase 75, Total Protein 6.3L, Albumin 2.8L, Globulin 3.5, Albumin/Globulin Ratio 0.8L, Triglycerides Level 81, Cholesterol Level 58, LDL Cholesterol 37, HDL Cholesterol 19L, Cholesterol/HDL Ratio 3.1L, Hepatitis A IgM Antibody [Pending] , Hepatitis B Surface Antigen [Pending], Hepatitis B Core IgM Antibody [Pending] , Hepatitis C Antibody [Pending] 07/14/17 13:20: Urine Color Yellow, Urine Appearance Slightly cloudy, Urine pH 5, Urine Specific [place] 1.020, Urine Protein 2+H, Urine Glucose (UA) Negative, Urine Ketones Negative, Urine Occult Blood 4+H, Urine Nitrite Negative, Urine Bilirubin Negative, Urine Urobilinogen 4H, Urine Leukocyte Esterase 3+H, Urine RBC 5-10H, Urine WBC 10-15H, Urine Squamous Epithelial Cells Occasional, Urine Bacteria Few, Urine Hyaline Casts 0-2H Height (Feet): 5 Height (Inches): 10.00 Weight (Pounds): 376 Objective Obese WM NCAT supple CTA RRR Soft Obese NT (++) edema non focal Miki Constantino MD July 14, 2017 20:32
[2017-07-14] MEDS: Carvedilol 25mg Tab ORAL SCH (20:34)
--- NOTE | 2017-07-14 23:00 | Consultation ---
DATE OF CONSULTATION: 07/14/2017 INFECTIOUS DISEASE CONSULTATION CONSULTING PHYSICIAN: Cornelio Alves M.D. PRIMARY ATTENDING PHYSICIAN: Ronny Nina M.D. REASON FOR CONSULT: Groin cellulitis. HISTORY OF PRESENT ILLNESS: This is a 46-year-old white male admitted yesterday because of shortness of breath, wheezing, coughing, orthopnea, and paroxysmal nocturnal dyspnea. He has history of congestive heart failure since 5 years ago that started gradually. Since one year ago, the change in insurance benefited the patient, skipped medications & medical appointments. Since one month ago, the symptoms gradually started. The patient developed edema of the legs and scrotum. PAST MEDICAL HISTORY: Congestive heart failure, cardiomyopathy, likely nonischemic, gout, morbid obesity, obstructive sleep apnea, hyperlipidemia, diabetes mellitus, and also does have past medical history of pulmonary emboli. ALLERGIES: No known drug allergies. MEDICATIONS: Coumadin, allopurinol, aspirin, vancomycin, Lasix, atorvastatin, carvedilol, albuterol, ipratropium inhaler, and insulin per protocol. SOCIAL HISTORY: Single. Denies alcohol, drug abuse, or smoking. No sick contact. FAMILY HISTORY: Significant for diabetes mellitus in mother. REVIEW OF SYSTEMS: No fever. No chills. He has productive cough that it is much better today. Shortness of breath has also improved. No nausea. No vomiting. No diarrhea. Developed rash in genital and groin area that is not painful and attributed to fluid collection. PHYSICAL EXAMINATION: GENERAL APPEARANCE: No acute distress. Seems morbidly obese. VITAL SIGNS: Pulse is 108, blood pressure 144/72, and temperature 97 degrees. HEAD AND NECK: [place] conjunctivae. No oral lesion. HEART: Tachycardic. LUNGS: Clear. ABDOMEN: Obese. Soft. GENITAL: Scrotal swelling of Albert catheter. EXTREMITIES: He has edema in the legs. SKIN: Rash in scrotal and groin area. No significant discharge. LABORATORY AND DIAGNOSTIC DATA: WBC today is 9, hemoglobin 13.6, hematocrit 42.4, and platelets 280. Sodium 140, potassium 3.7, chloride 103, bicarbonate 27, BUN 19, creatinine 1, and glucose 137. Hemoglobin A1c is 8.5. BNP level is 5615. Chest x-ray showed thyromegaly, right basilar atelectasis and likely infiltrate. IMPRESSION: Groin and scrotal cellulitis versus clinical burn. The patient's atelectasis is less likely infiltrate, had congestive heart failure with exacerbation, poorly uncontrolled diabetes mellitus with elevated hemoglobin A1c, morbid obesity, acute hypoxic respiratory failure, and obstructive sleep apnea. RECOMMENDATION: We will continue with IV vancomycin. We will add Levaquin. We will follow up chest x-ray in few days. At the end of my exam, I thank Dr. Nina for involving me in the care of this patient. Cornelio Alves M.D. DR: RADHA JOB#: [id number] CC: MAMTA
[2017-07-15] MEDS: Vancomycin 1gm/D5W 275ml IVPB SCH ×4 (01:00→11:30)
[2017-07-15] MEDS: Albuterol/Ipratropium 3ml neb HHN SCH ×4 (01:17→19:00)
--- NOTE | 2017-07-15 06:00 | History and Physical Report ---
DATE OF ADMISSION: 07/13/2017 NOTE: "POOR AUDIO" HISTORY OF PRESENT ILLNESS: The patient comes here for CHF exacerbation pulmonary edema. The patient is morbidly obese, had congestive heart failure for the past 5 years. The patient's shortness of breath and edema has been especially getting worse for the past 2 weeks. The patient has also have orthopnea, is sitting mostly in the couch, when he sleeps and has 2+ pitting edema. Denies chest pain. Denies shortness of breath. Denies cough. The patient admitted for CHF exacerbation. PAST MEDICAL HISTORY: CHF, history of gout, , hypertension, hyperlipidemia, and history of pulmonary embolism. PAST SURGICAL HISTORY: Right hip surgery. MEDICATIONS: Lasix, metoprolol, simvastatin, and warfarin. ALLERGIES: No known allergies. FAMILY HISTORY: Noncontributory. SOCIAL HISTORY: The patient denies history of drug or alcohol abuse. He has remote history of smoking. REVIEW OF SYSTEMS: HEENT: Denies headaches. RESPIRATORY: worsening shortness of breath. The patient . CARDIOVASCULAR: Denies chest pain. Does have orthopnea . GASTROINTESTINAL: Denies nausea, vomiting, diarrhea or constipation. EXTREMITIES: Does have generalized weakness. PHYSICAL EXAMINATION: VITAL SIGNS: Pulse is 111 and blood pressure is 102/70. HEENT: PERRLA. NECK: Supple. No lymphadenopathy. CHEST: Bibasilar rales . CARDIAC: Regular rate and rhythm. ABDOMEN: Distended. Positive bowel sounds. . Morbidly obese. generalized weakness. LABORATORY DATA: WBC of 11.4, hemoglobin 15, and platelets 321. Sodium 140, potassium 3.7, chloride 103, BUN 19, creatinine 1, and glucose of 137. ASSESSMENT AND PLAN: 1. CHF exacerbation. 2. COPD. 3. Morbidly obese. 4. edema. I have asked Dr. Paul, Dr. Yanez, Dr. Dumas, Dr. Constantino, and Dr. Cornelio Alves to see the patient . Dr. Constantino has been consulted for the elevated bilirubin. will need aggressive pain management. Ali Huy Nina DR: ARTURO JOB#: [id number] CC:
[2017-07-15] MEDS: NovoLOG Insulin Flexpen SUBQ SCH ×4 (06:29→20:09)
[2017-07-15 07:49] VITALS: BP 96/51
[2017-07-15 08:00] VITALS: BP 116/74
[2017-07-15 08:39] LABS: INR 2.4 (0.9-1.1)
[2017-07-15 09:00] LABS: ALANINE AMINOTRANSFERASE 31 U/L (12-78); ALBUMIN 2.7 G/DL (3.4-5.0); ALBUMIN/GLOBULIN RATIO 0.7 (1.0-2.7); ALKALINE PHOSPHATASE 82 U/L (46-116); ANION GAP 10 mmol/L (5-15); ASPARTATE AMINO TRANSFERASE 17 U/L (15-37); BILIRUBIN,TOTAL 2.4 MG/DL (0.2-1.0); BLOOD UREA NITROGEN 20 mg/dL (7-18); CARBON DIOXIDE 28 MMOL/L (21-32); CHLORIDE 102 MMOL/L (98-107); CREATININE 1.2 MG/DL (0.55-1.30); POTASSIUM 3.9 MMOL/L (3.5-5.1); SODIUM 140 MMOL/L (136-145)
[2017-07-15] MEDS: Aspirin Baby 81mg NG SCH (10:04)
[2017-07-15] MEDS: Carvedilol 25mg Tab ORAL SCH ×2 (10:04→20:07)
--- NOTE | 2017-07-15 10:27 | Infectious Diseases Prog Note ---
Assessment/Plan Assessment/Plan A; Cellulitis of groin Atelectasis/ Pneumonia Systolic CHF, EF=10-20% DM Morbid obesity MARSHA Elevation of bilirubin P; Continue Vancomycin & Levaquin Subjective ROS Limited/Unobtainable: No Constitutional: Reports: no symptoms, other - doing better Respiratory: Reports: shortness of breath Gastrointestinal/Abdominal: Reports: no symptoms Genitourinary: Reports: no symptoms Musculoskeletal: Reports: no symptoms Allergies: Coded Allergies: No Known Allergies (Unverified , 07/13/17) Objective Vital Signs Last 24 Hour Vital Signs Date Time Temp Pulse Resp B/P (MAP) Pulse Ox O2 Delivery O2 Flow Rate FiO2 07/15/17 10:04 99 116/74 07/15/17 08:24 99 20 96 Nasal Cannula 2.0 28 07/15/17 08:23 99 20 92 Nasal Cannula 2.0 28 07/15/17 08:22 Nasal Cannula 2.0 28 07/15/17 08:21 92 Room Air 21 07/15/17 08:00 98.0 100 20 116/74 94 Room Air 98.0 07/15/17 07:49 96.9 93 20 96/51 97 Nasal Cannula 2.0 96.9 07/15/17 05:06 82 21 97 Facial 28 07/15/17 04:00 81 07/15/17 03:09 84 19 98 Facial 28 07/15/17 01:27 84 20 98 Bi-pap 28 07/15/17 01:17 80 17 98 Bi-pap 28 07/15/17 01:16 80 17 98 Facial 28 07/15/17 00:00 94 07/14/17 22:30 103 30 95 Facial 28 07/14/17 20:34 78 119/65 07/14/17 20:15 105 18 96 Nasal Cannula 2.0 07/14/17 20:00 108 07/14/17 19:56 Nasal Cannula 2.0 28 07/14/17 19:56 110 18 96 Nasal Cannula 2.0 28 07/14/17 19:55 96 Nasal Cannula 2.0 28 07/14/17 19:55 96 Nasal Cannula 2.0 28 07/14/17 15:52 111 07/14/17 12:30 Nasal Cannula 07/14/17 12:30 Nasal Cannula 07/14/17 11:41 111 Height (Feet): 5 Height (Inches): 10.00 Weight (Pounds): 379 General Appearance: other - obese HEENT: mucous membranes moist Respiratory/Chest: lungs clear, other - O2 by nasal cannula Cardiovascular: normal rate Abdomen: soft, non tender Genitourinary: other - scrotal edema Extremities: other - edema of lrgs Skin: rash, other - groin & perineal area Neurologic/Psychiatric: alert, oriented x 3, responsive Microbiology Date/Time Source Procedure Growth Status 07/13/17 12:35 Blood Blood Culture - Preliminary NO GROWTH AFTER 24 HOURS Resulted 07/13/17 12:20 Blood Blood Culture - Preliminary NO GROWTH AFTER 24 HOURS Resulted 07/14/17 13:20 Urine,Clean Catch Urine Culture - Preliminary NO GROWTH Resulted Laboratory Tests Test 07/14/17 13:20 07/14/17 20:50 07/15/17 08:00 Urine Color Yellow Urine Appearance Slightly cloudy Urine pH 5 (4.5-8.0) Urine Specific [place] 1.020 (1.005-1.035) Urine Protein 2+ (NEGATIVE) H Urine Glucose (UA) Negative (NEGATIVE) Urine Ketones Negative (NEGATIVE) Urine Occult Blood 4+ (NEGATIVE) H Urine Nitrite Negative (NEGATIVE) Urine Bilirubin Negative (NEGATIVE) Urine Urobilinogen 4 MG/DL (0.0-1.0) H Urine Leukocyte Esterase 3+ (NEGATIVE) H Urine RBC 5-10 /HPF (0 - 0) H Urine WBC 10-15 /HPF (0 - 0) H Urine Squamous Epithelial Cells Occasional /LPF Urine Bacteria Few /HPF (NONE) Urine Hyaline Casts 0-2 /LPF (NONE) H Magnesium Level 1.8 MG/DL (1.8-2.4) Prothrombin Time 25.1 SEC (9.30-11.50) H Prothromb Time International Ratio 2.4 (0.9-1.1) H Sodium Level 140 MMOL/L (136-145) Potassium Level 3.9 MMOL/L (3.5-5.1) Chloride Level 102 MMOL/L (98-107) Carbon Dioxide Level 28 MMOL/L (21-32) Anion Gap 10 mmol/L (5-15) Blood Urea Nitrogen 20 mg/dL (7-18) H Creatinine 1.2 MG/DL (0.55-1.30) Estimat Glomerular Filtration Rate > 60 mL/min (>60) Glucose Level 231 MG/DL (74-106) H Calcium Level 9.0 MG/DL (8.5-10.1) Total Bilirubin 2.4 MG/DL (0.2-1.0) H Direct Bilirubin 1.0 MG/DL (0.0-0.3) H Aspartate Amino Transf (AST/SGOT) 17 U/L (15-37) Alanine Aminotransferase (ALT/SGPT) 31 U/L (12-78) Alkaline Phosphatase 82 U/L (46-116) Total Protein 6.6 G/DL (6.4-8.2) Albumin 2.7 G/DL (3.4-5.0) L Globulin 3.9 g/dL Albumin/Globulin Ratio 0.7 (1.0-2.7) L Vancomycin Level Trough 19.1 ug/mL (5.0-12.0) H Current Medications Medications (Trade) Dose Ordered Sig/Dago Route PRN Reason Start Time Stop Time Status Last Admin Dose Admin Acetaminophen (Tylenol) 650 mg Q4H PRN ORAL Mild Pain/Temp > 100.5 07/13/17 16:30 08/12/17 16:29 Albuterol/ Ipratropium (Albuterol/ Ipratropium) 3 ml Q4H PRN HHN Shortness of Breath 07/13/17 18:45 07/18/17 18:44 Albuterol/ Ipratropium (Albuterol/ Ipratropium) 3 ml Q6HRT HHN 07/13/17 19:00 07/18/17 18:59 07/15/17 08:21 Allopurinol (Allopurinol) 300 mg DAILY ORAL 07/14/17 09:00 08/13/17 08:59 07/15/17 10:04 Aspirin (ASA) 81 mg DAILY NG 07/14/17 09:00 08/13/17 08:59 07/15/17 10:04 Atorvastatin Calcium (Lipitor) 20 mg BEDTIME ORAL 07/13/17 21:00 08/12/17 20:59 07/14/17 20:32 Carvedilol (Coreg) 25 mg EVERY 12 HOURS ORAL 07/14/17 21:00 08/13/17 20:59 07/15/17 10:04 Dextrose (Dextrose 50%) 25 ml STAT PRN IV Hypoglycemia 07/13/17 15:45 08/12/17 15:44 Dextrose (Dextrose 50%) 50 ml STAT PRN IV Hypoglycemia 07/13/17 15:45 08/12/17 15:44 Furosemide (Lasix) 80 mg Q12HR IV 07/13/17 23:37 08/12/17 23:36 07/15/17 10:05 Insulin Aspart (NovoLOG) BEFORE MEALS AND HS SUBQ 07/13/17 17:30 08/12/17 17:29 07/15/17 06:29 Levofloxacin (Levaquin) 750 mg Q24H ORAL 07/14/17 13:00 07/21/17 12:59 07/14/17 15:23 Vancomycin HCl (Vanco rx to dose) 1 ea DAILY PRN MISC Per rx protocol 07/13/17 19:00 08/12/17 18:59 Vancomycin HCl/ Dextrose 250 ml @ 125 mls/hr Q12H IVPB 07/15/17 12:00 07/20/17 11:59 Warfarin Sodium (Coumadin per pharmacy) 1 ea DAILY PRN MISC Per rx protocol 07/13/17 18:45 08/12/17 18:44 PÉREZ ARORA July 15, 2017 10:27
[2017-07-15 11:29] VITALS: BP 105/72
[2017-07-15] MEDS: Vancomycin 1.5 GM/D5W 250ML IVPB SCH (12:25)
--- NOTE | 2017-07-15 13:14 | Pulmonology Progress Note ---
Assessment/Plan Assessment/Plan ASSESSMENT: * Acute hypoxemic RF 2/2 CHF with ADHF and underlying MARSHA * CHF (LVEF 15%) with AHDF * Elevated cardiac biomarkers, likely demand ischemia * Morbid obesity * OSH/OHV, non-compliant with CPAP * Abnormal LFT's * H/O PE on A/C * Groin cellulitis * Abnormal LFT's * DM, HTN, HL PLAN: * Optimize pulmonary hygiene/mobilize as tolerated * Titrate down FiO2 to keep SaO2 > 90% * BiPAP 12/5 qHS and PRN * RTC and PRN HHN's * Continue Lasix 80 IV BID as tolerated * Monitor volumes and renal function * F/U cardiology recs * COUMADIN per Rx * Vanco and Levaquin per ID * Aspiration precautions * DVT Px: A/C * FC * SW eval, needs to establish outpatient care Larry Daniels MD, [facility] Pul[facility] Critical [facility] Medicine Subjective Allergies: Coded Allergies: No Known Allergies (Unverified , 07/13/17) Subjective AFVSS, stable O2 needs, -3.8L, LVEF 15-20% with global hypokinesis Briefly used BiPAP ON Less SOB, no cough, less orthopnea, no PND, less CHRISTA, no NVDC, feels better overall Objective Last 24 Hour Vital Signs Date Time Temp Pulse Resp B/P (MAP) Pulse Ox O2 Delivery O2 Flow Rate FiO2 07/15/17 12:58 96 20 98 Nasal Cannula 2.0 28 07/15/17 12:50 94 20 97 Nasal Cannula 2.0 28 07/15/17 11:31 99 07/15/17 11:29 98.9 96 18 105/72 98 Room Air 98.9 07/15/17 10:04 99 116/74 07/15/17 08:24 99 20 96 Nasal Cannula 2.0 28 07/15/17 08:23 99 20 92 Nasal Cannula 2.0 28 07/15/17 08:22 Nasal Cannula 2.0 28 07/15/17 08:21 92 Room Air 21 07/15/17 08:00 98.0 100 20 116/74 94 Room Air 98.0 07/15/17 07:53 99 07/15/17 07:49 96.9 93 20 96/51 97 Nasal Cannula 2.0 96.9 07/15/17 05:06 82 21 97 Facial 28 07/15/17 04:00 81 07/15/17 03:09 84 19 98 Facial 28 07/15/17 01:27 84 20 98 Bi-pap 28 07/15/17 01:17 80 17 98 Bi-pap 28 07/15/17 01:16 80 17 98 Facial 28 07/15/17 00:00 94 07/14/17 22:30 103 30 95 Facial 28 07/14/17 20:34 78 119/65 07/14/17 20:15 105 18 96 Nasal Cannula 2.0 28 07/14/17 20:00 108 07/14/17 19:56 Nasal Cannula 2.0 28 07/14/17 19:56 110 18 96 Nasal Cannula 2.0 28 07/14/17 19:55 96 Nasal Cannula 2.0 28 07/14/17 19:55 96 Nasal Cannula 2.0 28 07/14/17 15:52 111 Intake and Output 07/14/17 07/15/17 19:00 07:00 Intake Total 500 ml Output Total 1600 ml 2700 ml Balance -1100 ml -2700 ml Intake Oral 500 ml Output Urine Total 1600 ml 2700 ml # Voids 3 General Appearance: no acute distress, other - morbidly obese male HEENT: normocephalic, atraumatic, anicteric, mucous membranes moist Respiratory/Chest: chest wall non-tender, lungs clear, normal breath sounds - x BiB rales and distant Cardiovascular: normal peripheral pulses, normal rate, regular rhythm Abdomen: normal bowel sounds, soft, non tender, no organomegaly, no mass, no scars Extremities: no cyanosis, no clubbing, other - 2+ CHRISTA Skin: rash - decreased R groin cellulitis Microbiology Date/Time Source Procedure Growth Status 07/13/17 12:35 Blood Blood Culture - Preliminary NO GROWTH AFTER 24 HOURS Resulted 07/13/17 12:20 Blood Blood Culture - Preliminary NO GROWTH AFTER 24 HOURS Resulted 07/14/17 13:20 Urine,Clean Catch Urine Culture - Preliminary NO GROWTH Resulted Laboratory Tests 07/14/17 13:20: Urine Color Yellow, Urine Appearance Slightly cloudy, Urine pH 5, Urine Specific [place] 1.020, Urine Protein 2+H, Urine Glucose (UA) Negative, Urine Ketones Negative, Urine Occult Blood 4+H, Urine Nitrite Negative, Urine Bilirubin Negative, Urine Urobilinogen 4H, Urine Leukocyte Esterase 3+H, Urine RBC 5-10H, Urine WBC 10-15H, Urine Squamous Epithelial Cells Occasional, Urine Bacteria Few, Urine Hyaline Casts 0-2H 07/14/17 20:50: Magnesium Level 1.8 07/15/17 08:00: Prothrombin Time 25.1H, Prothromb Time International Ratio 2.4H, Sodium Level 140, Potassium Level 3.9, Chloride Level 102, Carbon Dioxide Level 28, Anion Gap 10, Blood Urea Nitrogen 20H, Creatinine 1.2, Estimat Glomerular Filtration Rate > 60, Glucose Level 231H, Calcium Level 9.0, Total Bilirubin 2.4H, Direct Bilirubin 1.0H, Aspartate Amino Transf (AST/SGOT) 17, Alanine Aminotransferase ( ALT/SGPT) 31, Alkaline Phosphatase 82, Total Protein 6.6, Albumin 2.7L, Globulin 3.9, Albumin/Globulin Ratio 0.7L, Vancomycin Level Trough 19.1H Current Medications Medications (Trade) Dose Ordered Sig/Dago Route PRN Reason Start Time Stop Time Status Last Admin Dose Admin Acetaminophen (Tylenol) 650 mg Q4H PRN ORAL Mild Pain/Temp > 100.5 07/13/17 16:30 08/12/17 16:29 Albuterol/ Ipratropium (Albuterol/ Ipratropium) 3 ml Q4H PRN HHN Shortness of Breath 07/13/17 18:45 07/18/17 18:44 Albuterol/ Ipratropium (Albuterol/ Ipratropium) 3 ml Q6HRT HHN 07/13/17 19:00 07/18/17 18:59 07/15/17 12:50 Allopurinol (Allopurinol) 300 mg DAILY ORAL 07/14/17 09:00 08/13/17 08:59 07/15/17 10:04 Aspirin (ASA) 81 mg DAILY NG 07/14/17 09:00 08/13/17 08:59 07/15/17 10:04 Atorvastatin Calcium (Lipitor) 20 mg BEDTIME ORAL 07/13/17 21:00 08/12/17 20:59 07/14/17 20:32 Carvedilol (Coreg) 25 mg EVERY 12 HOURS ORAL 07/14/17 21:00 08/13/17 20:59 07/15/17 10:04 Dextrose (Dextrose 50%) 25 ml STAT PRN IV Hypoglycemia 07/13/17 15:45 08/12/17 15:44 Dextrose (Dextrose 50%) 50 ml STAT PRN IV Hypoglycemia 07/13/17 15:45 08/12/17 15:44 Furosemide (Lasix) 80 mg Q12HR IV 07/13/17 23:37 08/12/17 23:36 07/15/17 10:05 Insulin Aspart (NovoLOG) BEFORE MEALS AND HS SUBQ 07/13/17 17:30 08/12/17 17:29 07/15/17 12:26 Levofloxacin (Levaquin) 750 mg Q24H ORAL 07/14/17 13:00 07/21/17 12:59 07/15/17 12:24 Vancomycin HCl (Vanco rx to dose) 1 ea DAILY PRN MISC Per rx protocol 07/13/17 19:00 08/12/17 18:59 Vancomycin HCl/ Dextrose 250 ml @ 125 mls/hr Q12H IVPB 07/15/17 12:00 07/20/17 11:59 07/15/17 12:25 Warfarin Sodium (Coumadin per pharmacy) 1 ea DAILY PRN MISC Per rx protocol 07/13/17 18:45 08/12/17 18:44 Warfarin Sodium (Coumadin) 2 mg COUMADIN ORAL 07/15/17 17:00 07/20/17 16:59 LARRY DANIELS M.D. July 15, 2017 13:13
[2017-07-15 15:37] VITALS: BP 101/59
[2017-07-15] MEDS ORDERED: Warfarin Sodium 2mg ORAL SCH (17:00)
--- NOTE | 2017-07-15 17:13 | General Progress Note ---
Assessment/Plan Assessment/Plan Assessment - CM/CHF - abnormal LFT - ? passive congestion - ? fatty liver - ? KELLY/fibrosis Recommendations - follow LFT - f/u hepatitis serologies --> negative - cardiology f/u Subjective Allergies: Coded Allergies: No Known Allergies (Unverified , 07/13/17) Subjective Feels OK no abdominal pain labs noted breathing better Objective Last 24 Hour Vital Signs Date Time Temp Pulse Resp B/P (MAP) Pulse Ox O2 Delivery O2 Flow Rate FiO2 07/15/17 15:37 96.3 99 20 101/59 96 Room Air 96.3 07/15/17 15:21 96 07/15/17 12:58 96 20 98 Nasal Cannula 2.0 28 07/15/17 12:50 94 20 97 Nasal Cannula 2.0 28 07/15/17 11:31 99 07/15/17 11:29 98.9 96 18 105/72 98 Room Air 98.9 07/15/17 10:04 99 116/74 07/15/17 08:24 99 20 96 Nasal Cannula 2.0 28 07/15/17 08:23 99 20 92 Nasal Cannula 2.0 28 07/15/17 08:22 Nasal Cannula 2.0 28 07/15/17 08:21 92 Room Air 21 07/15/17 08:00 98.0 100 20 116/74 94 Room Air 98.0 07/15/17 07:53 99 07/15/17 07:49 96.9 93 20 96/51 97 Nasal Cannula 2.0 96.9 07/15/17 05:06 82 21 97 Facial 28 07/15/17 04:00 81 07/15/17 03:09 84 19 98 Facial 28 07/15/17 01:27 84 20 98 Bi-pap 28 07/15/17 01:17 80 17 98 Bi-pap 28 07/15/17 01:16 80 17 98 Facial 28 07/15/17 00:00 94 07/14/17 22:30 103 30 95 Facial 28 07/14/17 20:34 78 119/65 07/14/17 20:15 105 18 96 Nasal Cannula 2.0 28 07/14/17 20:00 108 07/14/17 19:56 Nasal Cannula 2.0 28 07/14/17 19:56 110 18 96 Nasal Cannula 2.0 28 07/14/17 19:55 96 Nasal Cannula 2.0 28 07/14/17 19:55 96 Nasal Cannula 2.0 28 Intake and Output 07/14/17 07/15/17 19:00 07:00 Intake Total 500 ml Output Total 1600 ml 2700 ml Balance -1100 ml -2700 ml Intake Oral 500 ml Output Urine Total 1600 ml 2700 ml # Voids 3 Laboratory Tests 07/14/17 20:50: Magnesium Level 1.8 07/15/17 08:00: Prothrombin Time 25.1H, Prothromb Time International Ratio 2.4H, Sodium Level 140, Potassium Level 3.9, Chloride Level 102, Carbon Dioxide Level 28, Anion Gap 10, Blood Urea Nitrogen 20H, Creatinine 1.2, Estimat Glomerular Filtration Rate > 60, Glucose Level 231H, Calcium Level 9.0, Total Bilirubin 2.4H, Direct Bilirubin 1.0H, Aspartate Amino Transf (AST/SGOT) 17, Alanine Aminotransferase ( ALT/SGPT) 31, Alkaline Phosphatase 82, Total Protein 6.6, Albumin 2.7L, Globulin 3.9, Albumin/Globulin Ratio 0.7L, Vancomycin Level Trough 19.1H Height (Feet): 5 Height (Inches): 10.00 Weight (Pounds): 379 Objective Obese WM NCAT supple CTA RRR Soft Obese NT (++) edema non focal Miki Constantino MD July 15, 2017 17:13
[2017-07-15 20:00] VITALS: BP 110/68
[2017-07-15] MEDS: Atorvastatin 20mg tab ORAL SCH (20:07)
--- NOTE | 2017-07-15 20:55 | General Progress Note ---
Assessment/Plan Problem List: (1) CHF (congestive heart failure) ICD Codes: I50.9 - Heart failure, unspecified SNOMED: [id number] Qualifiers: Qualified Codes: I50.9 - Heart failure, unspecified Status: progressing Assessment/Plan pulmonary edema chf exacerbation afebrile morbid obesity scrotal edema needs diuresis Subjective Respiratory: Reports: orthopnea, shortness of breath Allergies: Coded Allergies: No Known Allergies (Unverified , 07/13/17) Objective Last 24 Hour Vital Signs Date Time Temp Pulse Resp B/P (MAP) Pulse Ox O2 Delivery O2 Flow Rate FiO2 07/15/17 20:07 Nasal Cannula 2.0 28 07/15/17 20:07 Nasal Cannula 2.0 28 07/15/17 20:07 96 Nasal Cannula 2.0 28 07/15/17 20:07 99 101/59 07/15/17 20:06 Nasal Cannula 2.0 28 07/15/17 15:37 96.3 99 20 101/59 96 Nasal Cannula 2.0 96.3 07/15/17 15:21 96 07/15/17 12:58 96 20 98 Nasal Cannula 2.0 28 07/15/17 12:50 94 20 97 Nasal Cannula 2.0 28 07/15/17 11:31 99 07/15/17 11:29 98.9 96 18 105/72 98 Nasal Cannula 2.0 98.9 07/15/17 10:04 99 116/74 07/15/17 08:24 99 20 96 Nasal Cannula 2.0 28 07/15/17 08:23 99 20 92 Nasal Cannula 2.0 07/15/17 08:22 Nasal Cannula 2.0 28 07/15/17 08:21 92 Room Air 21 07/15/17 08:00 98.0 100 20 116/74 94 Nasal Cannula 2.0 98.0 07/15/17 07:53 99 07/15/17 07:49 96.9 93 20 96/51 97 Nasal Cannula 2.0 96.9 07/15/17 05:06 82 21 97 Facial 28 07/15/17 04:00 81 07/15/17 03:09 84 19 98 Facial 28 07/15/17 01:27 84 20 98 Bi-pap 28 07/15/17 01:17 80 17 98 Bi-pap 28 5/17/18 01:16 80 17 98 Facial 28 07/15/17 00:00 94 07/14/17 22:30 103 30 95 Facial 28 Intake and Output 07/14/17 07/15/17 19:00 07:00 Intake Total 500 ml Output Total 1600 ml 2700 ml Balance -1100 ml -2700 ml Intake Oral 500 ml Output Urine Total 1600 ml 2700 ml # Voids 3 Laboratory Tests 07/15/17 08:00: Prothrombin Time 25.1H, Prothromb Time International Ratio 2.4H, Sodium Level 140, Potassium Level 3.9, Chloride Level 102, Carbon Dioxide Level 28, Anion Gap 10, Blood Urea Nitrogen 20H, Creatinine 1.2, Estimat Glomerular Filtration Rate > 60, Glucose Level 231H, Calcium Level 9.0, Total Bilirubin 2.4H, Direct Bilirubin 1.0H, Aspartate Amino Transf (AST/SGOT) 17, Alanine Aminotransferase ( ALT/SGPT) 31, Alkaline Phosphatase 82, Total Protein 6.6, Albumin 2.7L, Globulin 3.9, Albumin/Globulin Ratio 0.7L, Vancomycin Level Trough 19.1H Height (Feet): 5 Height (Inches): 10.00 Weight (Pounds): 379 Respiratory/Chest: rhonchi - bilaterally Abdomen: non tender Ronny Nina MD July 15, 2017 20:55
--- NOTE | 2017-07-15 22:46 | Cardiology Progress Note ---
Assessment/Plan Assessment/Plan 1. Acute on chronic systolic CHF, add metolazone to lasix, daily creat. 2. History of nonischemic cardiomyopathy. 3. Slight elevation of troponin I level could be due to myocarditis, doubt this is acute coronary syndrome given lack of chest pain. We will continue serial troponin I measurements. 4. History of pulmonary embolism. On warfarin. INR target between 2 to 3. 5. Diabetes mellitus, uncontrolled. 6. MIKE 7. Dyslipidemia with low HDL. Subjective Subjective Sinus tachycardia at 100. Feeling weaker and more SOB. Objective Last 24 Hour Vital Signs Date Time Temp Pulse Resp B/P (MAP) Pulse Ox O2 Delivery O2 Flow Rate FiO2 07/15/17 20:07 Nasal Cannula 2.0 28 07/15/17 20:07 Nasal Cannula 2.0 28 07/15/17 20:07 96 Nasal Cannula 2.0 28 07/15/17 20:07 99 101/59 07/15/17 20:06 Nasal Cannula 2.0 28 07/15/17 20:00 104 07/15/17 20:00 97.9 96 20 110/68 96 Nasal Cannula 2.0 97.9 07/15/17 15:37 96.3 99 20 101/59 96 Nasal Cannula 2.0 96.3 07/15/17 15:21 96 07/15/17 12:58 96 20 98 Nasal Cannula 2.0 28 07/15/17 12:50 94 20 97 Nasal Cannula 2.0 28 07/15/17 11:31 99 07/15/17 11:29 98.9 96 18 105/72 98 Nasal Cannula 2.0 98.9 07/15/17 10:04 99 116/74 07/15/17 08:24 99 20 96 Nasal Cannula 2.0 28 07/15/17 08:23 99 20 92 Nasal Cannula 2.0 28 07/15/17 08:22 Nasal Cannula 2.0 28 07/15/17 08:21 92 Room Air 21 07/15/17 08:00 98.0 100 20 116/74 94 Nasal Cannula 2.0 98.0 07/15/17 07:53 99 07/15/17 07:49 96.9 93 20 96/51 97 Nasal Cannula 2.0 96.9 07/15/17 05:06 82 21 97 Facial 28 07/15/17 04:00 81 07/15/17 03:09 84 19 98 Facial 28 07/15/17 01:27 84 20 98 Bi-pap 28 07/15/17 01:17 80 17 98 Bi-pap 28 07/15/17 01:16 80 17 98 Facial 28 07/15/17 00:00 94 Intake and Output 07/14/17 07/15/17 19:00 07:00 Intake Total 500 ml Output Total 1600 ml 2700 ml Balance -1100 ml -2700 ml Intake Oral 500 ml Output Urine Total 1600 ml 2700 ml # Voids 3 2D Echo: LVEF 15%, Mild LVH, LAE, Global LV HK, RVSP 63, Mod MR, Grade I LVDD Laboratory Tests Test 07/15/17 08:00 Prothrombin Time 25.1 SEC (9.30-11.50) H Prothromb Time International Ratio 2.4 (0.9-1.1) H Sodium Level 140 MMOL/L (136-145) Potassium Level 3.9 MMOL/L (3.5-5.1) Chloride Level 102 MMOL/L (98-107) Carbon Dioxide Level 28 MMOL/L (21-32) Anion Gap 10 mmol/L (5-15) Blood Urea Nitrogen 20 mg/dL (7-18) H Creatinine 1.2 MG/DL (0.55-1.30) Estimat Glomerular Filtration Rate > 60 mL/min (>60) Glucose Level 231 MG/DL (74-106) H Calcium Level 9.0 MG/DL (8.5-10.1) Total Bilirubin 2.4 MG/DL (0.2-1.0) H Direct Bilirubin 1.0 MG/DL (0.0-0.3) H Aspartate Amino Transf (AST/SGOT) 17 U/L (15-37) Alanine Aminotransferase (ALT/SGPT) 31 U/L (12-78) Alkaline Phosphatase 82 U/L (46-116) Total Protein 6.6 G/DL (6.4-8.2) Albumin 2.7 G/DL (3.4-5.0) L Globulin 3.9 g/dL Albumin/Globulin Ratio 0.7 (1.0-2.7) L Vancomycin Level Trough 19.1 ug/mL (5.0-12.0) H Microbiology Date/Time Source Procedure Growth Status 07/13/17 12:35 Blood Blood Culture - Preliminary NO GROWTH AFTER 24 HOURS Resulted 07/13/17 12:20 Blood Blood Culture - Preliminary NO GROWTH AFTER 24 HOURS Resulted 07/14/17 13:20 Urine,Clean Catch Urine Culture - Preliminary NO GROWTH Resulted Objective HEENT: Atraumatic and normocephalic. Anicteric. Pupils are equal, round, and reactive to light and accommodation. Extraocular muscles intact. NECK: Hard to evaluate JVD. No carotid bruit. Carotid upstrokes 2+ bilaterally. CARDIOVASCULAR: Normal S1 and S2. Tachycardic. Positive S3. PMI is at fourth intercostal space at the midclavicular line. LUNGS: Diminished breath sounds in both bases, some scattered crackles, and rhonchi. ABDOMEN: Distended. I do not appreciate any hepatosplenomegaly. Positive bowel sounds. EXTREMITIES: There is 3+ to 4+ bilateral lower extremity edema as well as scrotal edema. Sergio Dumas MD July 15, 2017 22:46
[2017-07-16] VITALS: BP 102/55
[2017-07-16] MEDS: Vancomycin 1.5 GM/D5W 250ML IVPB SCH ×2 (01:06→11:43)
[2017-07-16] MEDS: Albuterol/Ipratropium 3ml neb HHN SCH ×4 (01:07→19:18)
[2017-07-16 04:00] VITALS: BP 112/60
[2017-07-16] MEDS: NovoLOG Insulin Flexpen SUBQ SCH ×4 (06:36→22:53)
[2017-07-16 08:00] VITALS: BP 113/74
[2017-07-16] MEDS: Aspirin Baby 81mg ORAL SCH (08:23)
[2017-07-16] MEDS: Carvedilol 25mg Tab ORAL SCH ×3 (08:25→22:50)
[2017-07-16] MEDS: Lisinopril 2.5mg tab ORAL SCH (08:25)
--- NOTE | 2017-07-16 08:38 | Pulmonology Progress Note ---
Assessment/Plan Assessment/Plan ASSESSMENT: * Acute hypoxemic RF 2/2 CHF with ADHF and underlying MARSHA * CHF (LVEF 15%) with AHDF * Elevated cardiac biomarkers, likely demand ischemia * Morbid obesity * OSH/OHV, non-compliant with CPAP * Abnormal LFT's * H/O PE on A/C * Groin cellulitis * DM, HTN, HL PLAN: * Optimize pulmonary hygiene/mobilize as tolerated * Titrate down FiO2 to keep SaO2 > 90% * BiPAP 12/5 qHS and PRN * RTC and PRN HHN's * Continue Lasix & Metolazone as tolerated * Monitor volumes and renal function * F/U cardiology recs * COUMADIN per Rx * Vanco and Levaquin per ID * Consider DERM or PLASTICS eval of groin rash * Aspiration precautions * DVT Px: A/C * FC * SW eval, needs to establish outpatient care Larry Daniels MD, [facility] Pul[facility] & Critical Care Medicine Subjective Allergies: Coded Allergies: No Known Allergies (Unverified , 07/13/17) Subjective AFVSS, stable O2 needs, -2.3, Metolazone added by cards Refused BiPAP ON Less SOB, no cough, less orthopnea, no PND, less CHRISTA, no NVDC, feels better overall Objective Last 24 Hour Vital Signs Date Time Temp Pulse Resp B/P (MAP) Pulse Ox O2 Delivery O2 Flow Rate FiO2 07/16/17 08:25 113/74 07/16/17 08:25 87 113/74 07/16/17 07:07 86 20 100 Nasal Cannula 3.0 32 07/16/17 07:00 Nasal Cannula 3.0 32 07/16/17 07:00 83 20 98 Nasal Cannula 3.0 32 07/16/17 07:00 98 Nasal Cannula 3.0 32 07/16/17 04:00 77 07/16/17 04:00 96.4 81 19 112/60 96 Nasal Cannula 2.0 96.4 07/16/17 01:16 92 20 99 Nasal Cannula 3.0 32 07/16/17 01:07 91 20 98 Nasal Cannula 3.0 32 07/16/17 00:00 90 07/16/17 00:00 97.7 87 20 102/55 97 Nasal Cannula 2.0 97.7 07/15/17 20:07 Nasal Cannula 2.0 28 07/15/17 20:07 Nasal Cannula 2.0 28 07/15/17 20:07 96 Nasal Cannula 2.0 28 07/15/17 20:07 99 101/59 07/15/17 20:06 Nasal Cannula 2.0 28 07/15/17 20:00 104 07/15/17 20:00 97.9 96 20 110/68 96 Nasal Cannula 2.0 97.9 07/15/17 15:37 96.3 99 20 101/59 96 Nasal Cannula 2.0 96.3 07/15/17 15:21 96 07/15/17 12:58 96 20 98 Nasal Cannula 2.0 28 07/15/17 12:50 94 20 97 Nasal Cannula 2.0 28 07/15/17 11:31 99 07/15/17 11:29 98.9 96 18 105/72 98 Nasal Cannula 2.0 98.9 07/15/17 10:04 99 116/74 Intake and Output 07/15/17 07/16/17 19:00 07:00 Intake Total 350 ml 120 ml Output Total 1550 ml 1300 ml Balance -1200 ml -1180 ml Intake Oral 350 ml 120 ml Output Urine Total 1550 ml 1300 ml General Appearance: no acute distress, other - morbid obese HEENT: normocephalic, atraumatic, anicteric, mucous membranes moist Respiratory/Chest: chest wall non-tender, lungs clear - but distant with BiB rales, no respiratory distress, no accessory muscle use Cardiovascular: normal peripheral pulses, normal rate, regular rhythm Abdomen: normal bowel sounds, soft, non tender, no organomegaly, non distended , no mass Extremities: no cyanosis, no clubbing, other - 2+ CHRISTA Skin: rash - R groin erythematous rash unchanged Microbiology Date/Time Source Procedure Growth Status 07/13/17 12:35 Blood Blood Culture - Preliminary NO GROWTH AFTER 48 HOURS Resulted 07/13/17 12:20 Blood Blood Culture - Preliminary NO GROWTH AFTER 48 HOURS Resulted 07/14/17 13:20 Urine,Clean Catch Urine Culture - Preliminary NO GROWTH AFTER 24 HOURS Resulted Current Medications Medications (Trade) Dose Ordered Sig/Dago Route PRN Reason Start Time Stop Time Status Last Admin Dose Admin Acetaminophen (Tylenol) 650 mg Q4H PRN ORAL Mild Pain/Temp > 100.5 07/13/17 16:30 6/14/18 16:29 Albuterol/ Ipratropium (Albuterol/ Ipratropium) 3 ml Q4H PRN HHN Shortness of Breath 07/13/17 18:45 07/18/17 18:44 Albuterol/ Ipratropium (Albuterol/ Ipratropium) 3 ml Q6HRT HHN 07/13/17 19:00 07/18/17 18:59 07/16/17 07:11 Allopurinol (Allopurinol) 300 mg DAILY ORAL 07/14/17 09:00 08/13/17 08:59 07/16/17 08:25 Aspirin (ASA) 81 mg DAILY ORAL 07/16/17 09:00 08/13/17 08:59 07/16/17 08:23 Atorvastatin Calcium (Lipitor) 20 mg BEDTIME ORAL 07/13/17 21:00 08/12/17 20:59 07/15/17 20:07 Carvedilol (Coreg) 25 mg EVERY 12 HOURS ORAL 07/14/17 21:00 08/13/17 20:59 07/16/17 08:25 Dextrose (Dextrose 50%) 25 ml STAT PRN IV Hypoglycemia 07/13/17 15:45 08/12/17 15:44 Dextrose (Dextrose 50%) 50 ml STAT PRN IV Hypoglycemia 07/13/17 15:45 08/12/17 15:44 Furosemide (Lasix) 80 mg Q12HR IV 07/13/17 23:37 08/12/17 23:36 07/16/17 08:26 Insulin Aspart (NovoLOG) BEFORE MEALS AND HS SUBQ 07/13/17 17:30 08/12/17 17:29 07/16/17 06:36 Levofloxacin (Levaquin) 750 mg Q24H ORAL 07/14/17 13:00 07/21/17 12:59 07/15/17 12:24 Lisinopril (Zestril) 5 mg DAILY ORAL 07/16/17 09:00 08/15/17 08:59 07/16/17 08:25 Metolazone (Zaroxolyn) 5 mg DAILY ORAL 07/15/17 20:00 08/14/17 19:59 07/16/17 08:22 Vancomycin HCl (Vanco rx to dose) 1 ea DAILY PRN MISC Per rx protocol 07/13/17 19:00 08/12/17 18:59 Vancomycin HCl/ Dextrose 250 ml @ 125 mls/hr Q12H IVPB 07/15/17 12:00 07/20/17 11:59 07/16/17 01:06 Warfarin Sodium (Coumadin per pharmacy) 1 ea DAILY PRN MISC Per rx protocol 07/13/17 18:45 08/12/17 18:44 LARRY DANIELS M.D. July 16, 2017 08:38
[2017-07-16 09:00] LABS: BASOPHILS % (AUTO) 0.6 % (0.0-2.0); EOSINOPHILS % (AUTO) 1.1 % (0.0-3.0); HEMATOCRIT 42.1 % (42.0-52.0); HEMOGLOBIN 13.3 G/DL (14.2-18.0); LYMPHOCYTES % (AUTO) 14.2 % (20.0-45.0); MEAN CORPUSCULAR VOLUME 88 FL (80-99); MONOCYTES % (AUTO) 7.6 % (1.0-10.0); NEUTROPHILS % (AUTO) 76.6 % (45.0-75.0); PLATELET COUNT 257 K/UL (150-450); RED BLOOD COUNT 4.79 M/UL (4.70-6.10); RED CELL DISTRIBUTION WIDTH 15.7 % (11.6-14.8); WHITE BLOOD COUNT 8.2 K/UL (4.8-10.8)
[2017-07-16 09:02] LABS: INR 2.5 (0.9-1.1)
[2017-07-16 09:41] LABS: ALANINE AMINOTRANSFERASE 27 U/L (12-78); ALBUMIN 2.8 G/DL (3.4-5.0); ALBUMIN/GLOBULIN RATIO 0.8 (1.0-2.7); ALKALINE PHOSPHATASE 77 U/L (46-116); ANION GAP 9 mmol/L (5-15); ASPARTATE AMINO TRANSFERASE 19 U/L (15-37); BILIRUBIN,TOTAL 2.3 MG/DL (0.2-1.0); BLOOD UREA NITROGEN 21 mg/dL (7-18); CALCIUM 8.9 MG/DL (8.5-10.1); CARBON DIOXIDE 31 MMOL/L (21-32); CHLORIDE 100 MMOL/L (98-107); CREATININE 1.1 MG/DL (0.55-1.30); POTASSIUM 3.1 MMOL/L (3.5-5.1); SODIUM 140 MMOL/L (136-145)
[2017-07-16 09:45] LABS: BILIRUBIN,DIRECT 1.1 MG/DL (0.0-0.3)
[2017-07-16 12:00] VITALS: BP 95/51
--- NOTE | 2017-07-16 12:19 | Infectious Diseases Prog Note ---
Assessment/Plan Assessment/Plan A; Cellulitis of groin Atelectasis/ Pneumonia Systolic CHF, EF=10-20% DM Morbid obesity MARSHA Elevation of bilirubin P; Change Vancomycin to Doxycycline , continue Levaquin Add Clotrimazole Subjective ROS Limited/Unobtainable: No Respiratory: Reports: shortness of breath, other - improving Cardiovascular: Reports: dyspnea on exertion Gastrointestinal/Abdominal: Reports: no symptoms Genitourinary: Reports: no symptoms, other Musculoskeletal: Reports: no symptoms Allergies: Coded Allergies: No Known Allergies (Unverified , 07/13/17) Objective Vital Signs Last 24 Hour Vital Signs Date Time Temp Pulse Resp B/P (MAP) Pulse Ox O2 Delivery O2 Flow Rate FiO2 07/16/17 08:25 113/74 07/16/17 08:25 87 113/74 07/16/17 08:00 97.6 89 20 113/74 100 Nasal Cannula 3.0 32 97.6 07/16/17 08:00 89 07/16/17 07:07 86 20 100 Nasal Cannula 3.0 32 07/16/17 07:00 Nasal Cannula 3.0 32 07/16/17 07:00 83 20 98 Nasal Cannula 3.0 32 07/16/17 07:00 98 Nasal Cannula 3.0 32 07/16/17 04:00 77 07/16/17 04:00 96.4 81 19 112/60 96 Nasal Cannula 2.0 96.4 07/16/17 01:16 92 20 99 Nasal Cannula 3.0 32 07/16/17 01:07 91 20 98 Nasal Cannula 3.0 32 07/16/17 00:00 90 07/16/17 00:00 97.7 87 20 102/55 97 Nasal Cannula 2.0 97.7 07/15/17 20:07 Nasal Cannula 2.0 28 07/15/17 20:07 Nasal Cannula 2.0 28 07/15/17 20:07 96 Nasal Cannula 2.0 28 07/15/17 20:07 99 101/59 07/15/17 20:06 Nasal Cannula 2.0 28 07/15/17 20:00 104 07/15/17 20:00 97.9 96 20 110/68 96 Nasal Cannula 2.0 97.9 07/15/17 15:37 96.3 99 20 101/59 96 Nasal Cannula 2.0 96.3 07/15/17 15:21 96 07/15/17 12:58 96 20 98 Nasal Cannula 2.0 28 07/15/17 12:50 94 20 97 Nasal Cannula 2.0 28 Height (Feet): 5 Height (Inches): 10.00 Weight (Pounds): 375 General Appearance: other - obese HEENT: mucous membranes moist Respiratory/Chest: lungs clear, other - O2 by cannula Cardiovascular: normal rate Abdomen: soft, non tender Genitourinary: other - Albert catheter, scrotal edema Extremities: other - generalized edema Microbiology Date/Time Source Procedure Growth Status 07/13/17 12:35 Blood Blood Culture - Preliminary NO GROWTH AFTER 48 HOURS Resulted 07/13/17 12:20 Blood Blood Culture - Preliminary NO GROWTH AFTER 48 HOURS Resulted 07/14/17 13:20 Urine,Clean Catch Urine Culture - Preliminary NO GROWTH AFTER 24 HOURS Resulted Laboratory Tests Test 07/16/17 07:20 White Blood Count 8.2 K/UL (4.8-10.8) Red Blood Count 4.79 M/UL (4.70-6.10) Hemoglobin 13.3 G/DL (14.2-18.0) L Hematocrit 42.1 % (42.0-52.0) Mean Corpuscular Volume 88 FL (80-99) Mean Corpuscular Hemoglobin 27.8 PG (27.0-31.0) Mean Corpuscular Hemoglobin Concent 31.6 G/DL (32.0-36.0) L Red Cell Distribution Width 15.7 % (11.6-14.8) H Platelet Count 257 K/UL (150-450) Mean Platelet Volume 6.9 FL (6.5-10.1) Neutrophils (%) (Auto) 76.6 % (45.0-75.0) H Lymphocytes (%) (Auto) 14.2 % (20.0-45.0) L Monocytes (%) (Auto) 7.6 % (1.0-10.0) Eosinophils (%) (Auto) 1.1 % (0.0-3.0) Basophils (%) (Auto) 0.6 % (0.0-2.0) Prothrombin Time 26.8 SEC (9.30-11.50) H Prothromb Time International Ratio 2.5 (0.9-1.1) H Sodium Level 140 MMOL/L (136-145) Potassium Level 3.1 MMOL/L (3.5-5.1) L Chloride Level 100 MMOL/L (98-107) Carbon Dioxide Level 31 MMOL/L (21-32) Anion Gap 9 mmol/L (5-15) Blood Urea Nitrogen 21 mg/dL (7-18) H Creatinine 1.1 MG/DL (0.55-1.30) Estimat Glomerular Filtration Rate > 60 mL/min (>60) Glucose Level 137 MG/DL (74-106) H Calcium Level 8.9 MG/DL (8.5-10.1) Total Bilirubin 2.3 MG/DL (0.2-1.0) H Direct Bilirubin 1.1 MG/DL (0.0-0.3) H Aspartate Amino Transf (AST/SGOT) 19 U/L (15-37) Alanine Aminotransferase (ALT/SGPT) 27 U/L (12-78) Alkaline Phosphatase 77 U/L (46-116) Total Protein 6.5 G/DL (6.4-8.2) Albumin 2.8 G/DL (3.4-5.0) L Globulin 3.7 g/dL Albumin/Globulin Ratio 0.8 (1.0-2.7) L Current Medications Medications (Trade) Dose Ordered Sig/Dago Route PRN Reason Start Time Stop Time Status Last Admin Dose Admin Acetaminophen (Tylenol) 650 mg Q4H PRN ORAL Mild Pain/Temp > 100.5 07/13/17 16:30 08/12/17 16:29 Albuterol/ Ipratropium (Albuterol/ Ipratropium) 3 ml Q4H PRN HHN Shortness of Breath 07/13/17 18:45 07/18/17 18:44 Albuterol/ Ipratropium (Albuterol/ Ipratropium) 3 ml Q6HRT HHN 07/13/17 19:00 07/18/17 18:59 07/16/17 07:11 Allopurinol (Allopurinol) 300 mg DAILY ORAL 07/14/17 09:00 08/13/17 08:59 07/16/17 08:25 Aspirin (ASA) 81 mg DAILY ORAL 07/16/17 09:00 08/13/17 08:59 07/16/17 08:23 Atorvastatin Calcium (Lipitor) 20 mg BEDTIME ORAL 07/13/17 21:00 08/12/17 20:59 07/15/17 20:07 Carvedilol (Coreg) 25 mg EVERY 12 HOURS ORAL 07/14/17 21:00 08/13/17 20:59 07/16/17 08:25 Dextrose (Dextrose 50%) 25 ml STAT PRN IV Hypoglycemia 07/13/17 15:45 08/12/17 15:44 Dextrose (Dextrose 50%) 50 ml STAT PRN IV Hypoglycemia 07/13/17 15:45 08/12/17 15:44 Furosemide (Lasix) 80 mg Q12HR IV 07/13/17 23:37 08/12/17 23:36 07/16/17 08:26 Insulin Aspart (NovoLOG) BEFORE MEALS AND HS SUBQ 07/13/17 17:30 08/12/17 17:29 07/16/17 11:42 Levofloxacin (Levaquin) 750 mg Q24H ORAL 07/14/17 13:00 07/21/17 12:59 07/16/17 12:10 Lisinopril (Zestril) 5 mg DAILY ORAL 07/16/17 09:00 08/15/17 08:59 07/16/17 08:25 Metolazone (Zaroxolyn) 5 mg DAILY ORAL 07/15/17 20:00 08/14/17 19:59 07/16/17 08:22 Vancomycin HCl (Vanco rx to dose) 1 ea DAILY PRN MISC Per rx protocol 07/13/17 19:00 08/12/17 18:59 Vancomycin HCl/ Dextrose 250 ml @ 125 mls/hr Q12H IVPB 07/15/17 12:00 07/20/17 11:59 07/16/17 11:43 Warfarin Sodium (Coumadin per pharmacy) 1 ea DAILY PRN MISC Per rx protocol 07/13/17 18:45 08/12/17 18:44 PÉREZ ARORA July 16, 2017 12:19
--- NOTE | 2017-07-16 14:46 | Consultation ---
Consult Note Consult Note HPI: 46 yo morbidly obese male h/o CHF, MARSHA not on CPAP, PE on A/C, HTN, HL and DM p/w several days of inc SOB, PND, orthopnea, wheezing 2/2 being out of lasix. No F/C, no BAKER, no dizziness, no N/V/D/C. He has been on/off his meds x several months and recently got into the [facility] CM clinic but was unable to fill his Rx's 2/2 insurance issues. In the ER he was AFVSS x for ST, sating well on RA-2L, BNP elevated, trop elevated, CXR with PVC and b effusions. PMH: CHF, PE, MARSHA, DM, HTN, morbid obesity PSH: R hip surgery as a child' ALL: NKDA Assessment/Plan Acute hypoxemic RF 2/2 CHF with ADHF and underlying MARSHA * CHF (LVEF 15%) with AHDF Left ventricular ejection fraction estimated to be 15-20 %. * Elevated cardiac biomarkers, likely demand ischemia * Morbid obesity * OSH/OHV, non-compliant with CPAP * Abnormal LFT's * H/O PE on A/C * Groin cellulitis * DM, and proteinuria * HTN, HL * UTI * KCL PO * Optimize cardiac status * Monitor lytes and renal parameters * antibiotics FLASH LEVI July 16, 2017 14:46
[2017-07-16 16:00] VITALS: BP 92/56
--- NOTE | 2017-07-16 16:51 | Cardiology Progress Note ---
Assessment/Plan Assessment/Plan 1. Acute on chronic systolic CHF, continue metolazone and lasix, daily creat. 2. History of nonischemic cardiomyopathy. 3. Slight elevation of troponin I level could be due to myocarditis, doubt this is acute coronary syndrome given lack of chest pain. We will continue serial troponin I measurements. 4. History of pulmonary embolism. On warfarin. INR target between 2 to 3. 5. Diabetes mellitus, uncontrolled. 6. MIKE 7. Dyslipidemia with low HDL. Subjective Subjective Sinus rhythm at 78. Objective Last 24 Hour Vital Signs Date Time Temp Pulse Resp B/P (MAP) Pulse Ox O2 Delivery O2 Flow Rate FiO2 07/16/17 13:27 84 20 100 Nasal Cannula 3.0 32 07/16/17 13:22 89 20 98 Nasal Cannula 3.0 32 07/16/17 12:00 97.6 82 20 95/51 100 Nasal Cannula 3.0 32 97.6 07/16/17 12:00 83 07/16/17 08:25 113/74 07/16/17 08:25 87 113/74 07/16/17 08:00 97.6 89 20 113/74 100 Nasal Cannula 3.0 32 97.6 07/16/17 08:00 89 07/16/17 07:07 86 20 100 Nasal Cannula 3.0 32 07/16/17 07:00 Nasal Cannula 3.0 32 07/16/17 07:00 83 20 98 Nasal Cannula 3.0 32 07/16/17 07:00 98 Nasal Cannula 3.0 32 07/16/17 04:00 77 07/16/17 04:00 96.4 81 19 112/60 96 Nasal Cannula 2.0 96.4 07/16/17 01:16 92 20 99 Nasal Cannula 3.0 32 07/16/17 01:07 91 20 98 Nasal Cannula 3.0 32 07/16/17 00:00 90 07/16/17 00:00 97.7 87 20 102/55 97 Nasal Cannula 2.0 97.7 07/15/17 20:07 Nasal Cannula 2.0 28 07/15/17 20:07 Nasal Cannula 2.0 28 07/15/17 20:07 96 Nasal Cannula 2.0 28 07/15/17 20:07 99 101/59 07/15/17 20:06 Nasal Cannula 2.0 28 07/15/17 20:00 104 07/15/17 20:00 97.9 96 20 110/68 96 Nasal Cannula 2.0 97.9 Intake and Output 07/15/17 07/16/17 19:00 07:00 Intake Total 350 ml 120 ml Output Total 1550 ml 1300 ml Balance -1200 ml -1180 ml Intake Oral 350 ml 120 ml Output Urine Total 1550 ml 1300 ml 2D Echo: LVEF 15%, Mild LVH, LAE, Global LV HK, RVSP 63, Mod MR, Grade I LVDD Laboratory Tests Test 07/16/17 07:20 White Blood Count 8.2 K/UL (4.8-10.8) Red Blood Count 4.79 M/UL (4.70-6.10) Hemoglobin 13.3 G/DL (14.2-18.0) L Hematocrit 42.1 % (42.0-52.0) Mean Corpuscular Volume 88 FL (80-99) Mean Corpuscular Hemoglobin 27.8 PG (27.0-31.0) Mean Corpuscular Hemoglobin Concent 31.6 G/DL (32.0-36.0) L Red Cell Distribution Width 15.7 % (11.6-14.8) H Platelet Count 257 K/UL (150-450) Mean Platelet Volume 6.9 FL (6.5-10.1) Neutrophils (%) (Auto) 76.6 % (45.0-75.0) H Lymphocytes (%) (Auto) 14.2 % (20.0-45.0) L Monocytes (%) (Auto) 7.6 % (1.0-10.0) Eosinophils (%) (Auto) 1.1 % (0.0-3.0) Basophils (%) (Auto) 0.6 % (0.0-2.0) Prothrombin Time 26.8 SEC (9.30-11.50) H Prothromb Time International Ratio 2.5 (0.9-1.1) H Sodium Level 140 MMOL/L (136-145) Potassium Level 3.1 MMOL/L (3.5-5.1) L Chloride Level 100 MMOL/L (98-107) Carbon Dioxide Level 31 MMOL/L (21-32) Anion Gap 9 mmol/L (5-15) Blood Urea Nitrogen 21 mg/dL (7-18) H Creatinine 1.1 MG/DL (0.55-1.30) Estimat Glomerular Filtration Rate > 60 mL/min (>60) Glucose Level 137 MG/DL (74-106) H Calcium Level 8.9 MG/DL (8.5-10.1) Total Bilirubin 2.3 MG/DL (0.2-1.0) H Direct Bilirubin 1.1 MG/DL (0.0-0.3) H Aspartate Amino Transf (AST/SGOT) 19 U/L (15-37) Alanine Aminotransferase (ALT/SGPT) 27 U/L (12-78) Alkaline Phosphatase 77 U/L (46-116) C-Reactive Protein, Quantitative 6.6 mg/dL (0.00-0.90) H Total Protein 6.5 G/DL (6.4-8.2) Albumin 2.8 G/DL (3.4-5.0) L Globulin 3.7 g/dL Albumin/Globulin Ratio 0.8 (1.0-2.7) L Microbiology Date/Time Source Procedure Growth Status 07/14/17 13:20 Urine,Clean Catch Urine Culture - Preliminary NO GROWTH AFTER 24 HOURS Resulted Objective HEENT: Atraumatic and normocephalic. Anicteric. Pupils are equal, round, and reactive to light and accommodation. Extraocular muscles intact. NECK: Hard to evaluate JVD. No carotid bruit. Carotid upstrokes 2+ bilaterally. CARDIOVASCULAR: Normal S1 and S2. Tachycardic. Positive S3. PMI is at fourth intercostal space at the midclavicular line. LUNGS: Diminished breath sounds in both bases, some scattered crackles, and rhonchi. ABDOMEN: Distended. I do not appreciate any hepatosplenomegaly. Positive bowel sounds. EXTREMITIES: There is 3+ to 4+ bilateral lower extremity edema as well as scrotal edema. Sergio Dumas MD July 16, 2017 16:51
[2017-07-16] MEDS ORDERED: Warfarin Sodium 2mg ORAL SCH (17:00)
--- NOTE | 2017-07-16 17:52 | General Progress Note ---
Assessment/Plan Assessment/Plan Assessment - CM/CHF - EF 15-20% - abnormal LFT - ? passive congestion - ? fatty liver - ? KELLY/fibrosis Recommendations - follow LFT periodically - f/u hepatitis serologies --> negative - cardiology f/u - I will be away until Wednesday. Call if GI issues. Subjective Allergies: Coded Allergies: No Known Allergies (Unverified , 07/13/17) Subjective Feels OK no abdominal pain labs noted breathing better Objective Last 24 Hour Vital Signs Date Time Temp Pulse Resp B/P (MAP) Pulse Ox O2 Delivery O2 Flow Rate FiO2 07/16/17 13:27 84 20 100 Nasal Cannula 3.0 32 07/16/17 13:22 89 20 98 Nasal Cannula 3.0 32 07/16/17 12:00 97.6 82 20 95/51 100 Nasal Cannula 3.0 32 97.6 07/16/17 12:00 83 07/16/17 08:25 113/74 07/16/17 08:25 87 113/74 07/16/17 08:00 97.6 89 20 113/74 100 Nasal Cannula 3.0 32 97.6 07/16/17 08:00 89 07/16/17 07:07 86 20 100 Nasal Cannula 3.0 32 07/16/17 07:00 Nasal Cannula 3.0 32 07/16/17 07:00 83 20 98 Nasal Cannula 3.0 32 07/16/17 07:00 98 Nasal Cannula 3.0 32 07/16/17 04:00 77 07/16/17 04:00 96.4 81 19 112/60 96 Nasal Cannula 2.0 96.4 07/16/17 01:16 92 20 99 Nasal Cannula 3.0 32 07/16/17 01:07 91 20 98 Nasal Cannula 3.0 32 07/16/17 00:00 90 07/16/17 00:00 97.7 87 20 102/55 97 Nasal Cannula 2.0 97.7 07/15/17 20:07 Nasal Cannula 2.0 28 07/15/17 20:07 Nasal Cannula 2.0 28 07/15/17 20:07 96 Nasal Cannula 2.0 28 07/15/17 20:07 99 101/59 07/15/17 20:06 Nasal Cannula 2.0 28 07/15/17 20:00 104 07/15/17 20:00 97.9 96 20 110/68 96 Nasal Cannula 2.0 97.9 Intake and Output 07/15/17 07/16/17 19:00 07:00 Intake Total 350 ml 120 ml Output Total 1550 ml 1300 ml Balance -1200 ml -1180 ml Intake Oral 350 ml 120 ml Output Urine Total 1550 ml 1300 ml Laboratory Tests 07/16/17 07:20: White Blood Count 8.2, Red Blood Count 4.79, Hemoglobin 13.3L, Hematocrit 42.1, Mean Corpuscular Volume 88, Mean Corpuscular Hemoglobin 27.8, Mean Corpuscular Hemoglobin Concent 31.6L, Red Cell Distribution Width 15.7H, Platelet Count 257 , Mean Platelet Volume 6.9, Neutrophils (%) (Auto) 76.6H, Lymphocytes (%) (Auto ) 14.2L, Monocytes (%) (Auto) 7.6, Eosinophils (%) (Auto) 1.1, Basophils (%) ( Auto) 0.6, Prothrombin Time 26.8H, Prothromb Time International Ratio 2.5H, Sodium Level 140, Potassium Level 3.1L, Chloride Level 100, Carbon Dioxide Level 31, Anion Gap 9, Blood Urea Nitrogen 21H, Creatinine 1.1, Estimat Glomerular Filtration Rate > 60, Glucose Level 137H, Calcium Level 8.9, Total Bilirubin 2.3H, Direct Bilirubin 1.1H, Aspartate Amino Transf (AST/SGOT) 19, Alanine Aminotransferase (ALT/SGPT) 27, Alkaline Phosphatase 77, C-Reactive Protein, Quantitative 6.6H, Total Protein 6.5, Albumin 2.8L, Globulin 3.7, Albumin/Globulin Ratio 0.8L Height (Feet): 5 Height (Inches): 10.00 Weight (Pounds): 375 Objective Obese WM NCAT supple CTA RRR Soft Obese NT (++) edema non focal Miki Constantino MD July 16, 2017 17:52
[2017-07-16 20:00] VITALS: BP 104/69
--- NOTE | 2017-07-16 21:30 | General Progress Note ---
Assessment/Plan Problem List: (1) CHF (congestive heart failure) ICD Codes: I50.9 - Heart failure, unspecified SNOMED: [id number] Qualifiers: Qualified Codes: I50.9 - Heart failure, unspecified Status: progressing Assessment/Plan pulmonary edema chf exacerbation morbid obesity scrotal edema needs diuresis and fluid management check lytes Subjective Respiratory: Reports: orthopnea, shortness of breath, SOB with excertion Allergies: Coded Allergies: No Known Allergies (Unverified , 07/13/17) Objective Last 24 Hour Vital Signs Date Time Temp Pulse Resp B/P (MAP) Pulse Ox O2 Delivery O2 Flow Rate FiO2 07/16/17 19:26 82 20 100 Nasal Cannula 3.0 32 07/16/17 19:18 86 20 98 Nasal Cannula 3.0 32 07/16/17 19:18 98 Nasal Cannula 3.0 32 07/16/17 19:18 Nasal Cannula 3.0 32 07/16/17 16:00 97.7 76 20 92/56 100 Nasal Cannula 3.0 32 97.7 07/16/17 16:00 76 07/16/17 13:27 84 20 100 Nasal Cannula 3.0 32 07/16/17 13:22 89 20 98 Nasal Cannula 3.0 32 07/16/17 12:00 97.6 82 20 95/51 100 Nasal Cannula 3.0 32 97.6 07/16/17 12:00 83 07/16/17 08:25 113/74 07/16/17 08:25 87 113/74 07/16/17 08:00 97.6 89 20 113/74 100 Nasal Cannula 3.0 32 97.6 07/16/17 08:00 89 07/16/17 07:07 86 20 100 Nasal Cannula 3.0 32 07/16/17 07:00 Nasal Cannula 3.0 32 07/16/17 07:00 83 20 98 Nasal Cannula 3.0 32 07/16/17 07:00 98 Nasal Cannula 3.0 32 07/16/17 04:00 77 07/16/17 04:00 96.4 81 19 112/60 96 Nasal Cannula 2.0 96.4 07/16/17 01:16 92 20 99 Nasal Cannula 3.0 32 07/16/17 01:07 91 20 98 Nasal Cannula 3.0 32 07/16/17 00:00 90 07/16/17 00:00 97.7 87 20 102/55 97 Nasal Cannula 2.0 97.7 Intake and Output 07/15/17 07/16/17 19:00 07:00 Intake Total 350 ml 120 ml Output Total 1550 ml 1300 ml Balance -1200 ml -1180 ml Intake Oral 350 ml 120 ml Output Urine Total 1550 ml 1300 ml Laboratory Tests 07/16/17 07:20: White Blood Count 8.2, Red Blood Count 4.79, Hemoglobin 13.3L, Hematocrit 42.1, Mean Corpuscular Volume 88, Mean Corpuscular Hemoglobin 27.8, Mean Corpuscular Hemoglobin Concent 31.6L, Red Cell Distribution Width 15.7H, Platelet Count 257 , Mean Platelet Volume 6.9, Neutrophils (%) (Auto) 76.6H, Lymphocytes (%) (Auto ) 14.2L, Monocytes (%) (Auto) 7.6, Eosinophils (%) (Auto) 1.1, Basophils (%) ( Auto) 0.6, Prothrombin Time 26.8H, Prothromb Time International Ratio 2.5H, Sodium Level 140, Potassium Level 3.1L, Chloride Level 100, Carbon Dioxide Level 31, Anion Gap 9, Blood Urea Nitrogen 21H, Creatinine 1.1, Estimat Glomerular Filtration Rate > 60, Glucose Level 137H, Calcium Level 8.9, Total Bilirubin 2.3H, Direct Bilirubin 1.1H, Aspartate Amino Transf (AST/SGOT) 19, Alanine Aminotransferase (ALT/SGPT) 27, Alkaline Phosphatase 77, C-Reactive Protein, Quantitative 6.6H, Total Protein 6.5, Albumin 2.8L, Globulin 3.7, Albumin/Globulin Ratio 0.8L Height (Feet): 5 Height (Inches): 10.00 Weight (Pounds): 375 Cardiovascular: regular rhythm Respiratory/Chest: rhonchi - bilaterally Abdomen: soft Ronny Nina MD July 16, 2017 21:30
[2017-07-16] MEDS: Atorvastatin 20mg tab ORAL SCH (22:49)
[2017-07-17] VITALS: BP 96/61
[2017-07-17] MEDS: Albuterol/Ipratropium 3ml neb HHN SCH ×4 (00:23→19:37)
[2017-07-17 04:00] VITALS: BP 117/66
[2017-07-17] MEDS: NovoLOG Insulin Flexpen SUBQ SCH ×4 (06:57→20:51)
[2017-07-17 07:10] LABS: BASOPHILS % (AUTO) 1.8 % (0.0-2.0); EOSINOPHILS % (AUTO) 1.5 % (0.0-3.0); HEMOGLOBIN 14.8 G/DL (14.2-18.0); MEAN CORPUSCULAR VOLUME 87 FL (80-99); MONOCYTES % (AUTO) 7.2 % (1.0-10.0); NEUTROPHILS % (AUTO) 80.5 % (45.0-75.0); PLATELET COUNT 282 K/UL (150-450); RED BLOOD COUNT 5.26 M/UL (4.70-6.10); RED CELL DISTRIBUTION WIDTH 15.9 % (11.6-14.8); WHITE BLOOD COUNT 8.4 K/UL (4.8-10.8)
--- NOTE | 2017-07-17 07:20 | Pulmonology Progress Note ---
Assessment/Plan Assessment/Plan * Acute hypoxemic RF 2/2 CHF with ADHF and underlying MARSHA * CHF (LVEF 15%) with AHDF * Elevated cardiac biomarkers, likely demand ischemia * Morbid obesity * OSH/OHV, non-compliant with CPAP * Abnormal LFT's * H/O PE on A/C * Groin cellulitis * DM, HTN, HL PLAN: * Optimize pulmonary hygiene/mobilize as tolerated * Titrate down FiO2 to keep SaO2 > 90% * BiPAP 12/5 qHS and PRN if he will use * RTC and PRN HHN's * Continue Lasix & Metolazone as tolerated * Monitor volumes and renal function * F/U cardiology recs * COUMADIN per Rx * Vanco and Levaquin per ID * Consider DERM or PLASTICS eval of groin rash * Aspiration precautions * DVT Px: A/C * FC * SW eval, needs to establish outpatient care Subjective Constitutional: Reports: no symptoms HEENT: Repors: no symptoms Respiratory: Reports: no symptoms Cardiovascular: Reports: no symptoms Gastrointestinal/Abdominal: Reports: no symptoms Allergies: Coded Allergies: No Known Allergies (Unverified , 07/13/17) Subjective used cpap last night did not sleep well no cp nv or bleeding del real in place positive uop Objective Last 24 Hour Vital Signs Date Time Temp Pulse Resp B/P (MAP) Pulse Ox O2 Delivery O2 Flow Rate FiO2 07/17/17 07:16 92 20 99 Nasal Cannula 3.0 32 07/17/17 07:09 97 Nasal Cannula 3.0 32 07/17/17 07:09 86 20 97 Nasal Cannula 3.0 32 07/17/17 07:09 Nasal Cannula 3.0 32 07/17/17 05:20 80 23 98 Facial 28 07/17/17 04:00 97.0 79 20 117/66 99 Nasal Cannula 3.0 32 97.0 07/17/17 04:00 81 07/17/17 03:36 82 23 98 Facial 28 07/17/17 00:24 96 20 98 Nasal Cannula 2.0 28 07/17/17 00:24 85 15 99 Facial 28 07/17/17 00:23 82 20 98 Nasal Cannula 3.0 32 07/17/17 00:00 87 07/17/17 00:00 98.0 83 20 96/61 99 Nasal Cannula 3.0 32 98.0 07/16/17 21:00 86 104/69 07/16/17 20:00 89 07/16/17 20:00 96.0 86 20 104/69 99 Nasal Cannula 3.0 32 96.0 07/16/17 19:26 82 20 100 Nasal Cannula 3.0 32 07/16/17 19:18 86 20 98 Nasal Cannula 3.0 32 07/16/17 19:18 98 Nasal Cannula 3.0 32 07/16/17 19:18 Nasal Cannula 3.0 32 07/16/17 16:00 97.7 76 20 92/56 100 Nasal Cannula 3.0 32 97.7 07/16/17 16:00 76 07/16/17 13:27 84 20 100 Nasal Cannula 3.0 32 07/16/17 13:22 89 20 98 Nasal Cannula 3.0 32 07/16/17 12:00 97.6 82 20 95/51 100 Nasal Cannula 3.0 32 97.6 07/16/17 12:00 83 07/16/17 08:25 113/74 07/16/17 08:25 87 113/74 07/16/17 08:00 97.6 89 20 113/74 100 Nasal Cannula 3.0 32 97.6 07/16/17 08:00 89 Intake and Output 07/16/17 07/17/17 19:00 07:00 Intake Total 450 ml Output Total 1400 ml 3500 ml Balance -950 ml -3500 ml Intake Oral 450 ml Output Urine Total 1400 ml 3500 ml General Appearance: WD/WN Respiratory/Chest: chest wall non-tender, lungs clear, no respiratory distress , crackles/rales Cardiovascular: normal peripheral pulses, normal rate, regular rhythm, edema Abdomen: normal bowel sounds, no organomegaly Skin: no rash Neurologic/Psychiatric: no motor/sensory deficits, oriented x 3 Microbiology Date/Time Source Procedure Growth Status 07/14/17 13:20 Urine,Clean Catch Urine Culture - Preliminary NO GROWTH AFTER 24 HOURS Resulted Laboratory Tests 07/16/17 07:20: White Blood Count 8.2, Red Blood Count 4.79, Hemoglobin 13.3L, Hematocrit 42.1, Mean Corpuscular Volume 88, Mean Corpuscular Hemoglobin 27.8, Mean Corpuscular Hemoglobin Concent 31.6L, Red Cell Distribution Width 15.7H, Platelet Count 257 , Mean Platelet Volume 6.9, Neutrophils (%) (Auto) 76.6H, Lymphocytes (%) (Auto ) 14.2L, Monocytes (%) (Auto) 7.6, Eosinophils (%) (Auto) 1.1, Basophils (%) ( Auto) 0.6, Prothrombin Time 26.8H, Prothromb Time International Ratio 2.5H, Sodium Level 140, Potassium Level 3.1L, Chloride Level 100, Carbon Dioxide Level 31, Anion Gap 9, Blood Urea Nitrogen 21H, Creatinine 1.1, Estimat Glomerular Filtration Rate > 60, Glucose Level 137H, Calcium Level 8.9, Total Bilirubin 2.3H, Direct Bilirubin 1.1H, Aspartate Amino Transf (AST/SGOT) 19, Alanine Aminotransferase (ALT/SGPT) 27, Alkaline Phosphatase 77, C-Reactive Protein, Quantitative 6.6H, Total Protein 6.5, Albumin 2.8L, Globulin 3.7, Albumin/Globulin Ratio 0.8L 07/17/17 06:15: White Blood Count [Pending], Red Blood Count [Pending], Hemoglobin [Pending], Hematocrit [Pending], Mean Corpuscular Volume [Pending], Mean Corpuscular Hemoglobin [Pending], Mean Corpuscular Hemoglobin Concent [Pending], Red Cell Distribution Width [Pending], Platelet Count [Pending], Mean Platelet Volume [ Pending], Neutrophils (%) (Auto) [Pending], Lymphocytes (%) (Auto) [Pending], Monocytes (%) (Auto) [Pending], Eosinophils (%) (Auto) [Pending], Basophils (%) (Auto) [Pending], Prothrombin Time [Pending], Prothromb Time International Ratio [Pending], Sodium Level [Pending], Potassium Level [Pending], Chloride Level [Pending], Carbon Dioxide Level [Pending], Blood Urea Nitrogen [Pending], Creatinine [Pending], Estimat Glomerular Filtration Rate [Pending], Glucose Level [Pending], Calcium Level [Pending], Total Bilirubin [Pending], Aspartate Amino Transf (AST/SGOT) [Pending], Alanine Aminotransferase (ALT/SGPT) [Pending] , Alkaline Phosphatase [Pending], Total Protein [Pending], Albumin [Pending], Globulin [Pending], Uric Acid [Pending], Phosphorus Level [Pending], Magnesium Level [Pending], Gamma Glutamyl Transpeptidase [Pending], Total Creatine Kinase [Pending], Troponin I [Pending], Pro-B-Type Natriuretic Peptide [Pending], Triglycerides Level [Pending], Cholesterol Level [Pending], LDL Cholesterol [ Pending], HDL Cholesterol [Pending], Cholesterol/HDL Ratio [Pending], Thyroid Stimulating Hormone (TSH) [Pending] Current Medications Medications (Trade) Dose Ordered Sig/Dago Route PRN Reason Start Time Stop Time Status Last Admin Dose Admin Acetaminophen (Tylenol) 650 mg Q4H PRN ORAL Mild Pain/Temp > 100.5 07/13/17 16:30 08/12/17 16:29 Albuterol/ Ipratropium (Albuterol/ Ipratropium) 3 ml Q4H PRN HHN Shortness of Breath 07/13/17 18:45 07/18/17 18:44 Albuterol/ Ipratropium (Albuterol/ Ipratropium) 3 ml Q6HRT HHN 07/13/17 19:00 07/18/17 18:59 07/17/17 07:08 Allopurinol (Allopurinol) 300 mg DAILY ORAL 07/14/17 09:00 08/13/17 08:59 07/16/17 08:25 Aspirin (ASA) 81 mg DAILY ORAL 07/16/17 09:00 08/13/17 08:59 07/16/17 08:23 Atorvastatin Calcium (Lipitor) 20 mg BEDTIME ORAL 07/13/17 21:00 08/12/17 20:59 07/16/17 22:49 Carvedilol (Coreg) 25 mg EVERY 12 HOURS ORAL 07/14/17 21:00 08/13/17 20:59 07/16/17 08:25 Clotrimazole (Lotrimin) 1 applic THREE TIMES A DAY TOPIC 07/16/17 13:00 08/15/17 12:59 07/16/17 17:22 Dextrose (Dextrose 50%) 25 ml STAT PRN IV Hypoglycemia 07/13/17 15:45 08/12/17 15:44 Doxycycline Monohydrate (Vibramycin) 100 mg EVERY 12 HOURS ORAL 07/16/17 21:00 07/23/17 20:59 07/16/17 22:49 Furosemide (Lasix) 80 mg Q12HR IV 07/13/17 23:37 08/12/17 23:36 07/16/17 23:57 Insulin Aspart (NovoLOG) BEFORE MEALS AND HS SUBQ 07/13/17 17:30 08/12/17 17:29 07/17/17 06:57 Levofloxacin (Levaquin) 750 mg Q24H ORAL 07/14/17 13:00 07/21/17 12:59 07/16/17 12:10 Lisinopril (Zestril) 5 mg DAILY ORAL 07/16/17 09:00 08/15/17 08:59 07/16/17 08:25 Metolazone (Zaroxolyn) 5 mg DAILY ORAL 07/15/17 20:00 08/14/17 19:59 07/16/17 08:22 Potassium Chloride (K-Dur) 40 meq TWICE A DAY ORAL 07/16/17 14:45 08/15/17 14:44 07/16/17 17:21 Warfarin Sodium (Coumadin per pharmacy) 1 ea DAILY PRN MISC Per rx protocol 07/13/17 18:45 08/12/17 18:44 LEO JAFFE DO July 17, 2017 07:20
[2017-07-17 07:24] LABS: CREATINE KINASE 42 U/L (26-308); GAMMA GLUTAMYL TRANSPEPTIDASE 207 U/L (5-85)
[2017-07-17 07:29] LABS: INR 2.4 (0.9-1.1)
[2017-07-17 07:35] LABS: ALANINE AMINOTRANSFERASE 28 U/L (12-78); ALBUMIN/GLOBULIN RATIO 0.7 (1.0-2.7); ALKALINE PHOSPHATASE 84 U/L (46-116); ANION GAP 7 mmol/L (5-15); ASPARTATE AMINO TRANSFERASE 19 U/L (15-37); BILIRUBIN,TOTAL 2.3 MG/DL (0.2-1.0); BLOOD UREA NITROGEN 24 mg/dL (7-18); CALCIUM 9.6 MG/DL (8.5-10.1); CARBON DIOXIDE 36 MMOL/L (21-32); CHLORIDE 99 MMOL/L (98-107); CHOLESTEROL 66 MG/DL (< 200); CREATININE 1.3 MG/DL (0.55-1.30); HDL CHOLESTEROL 21 MG/DL (40-60); POTASSIUM 2.8 MMOL/L (3.5-5.1); SODIUM 142 MMOL/L (136-145); TRIGLYCERIDES 75 MG/DL (30-150)
[2017-07-17 08:00] VITALS: BP 111/68
[2017-07-17] MEDS: Aspirin Baby 81mg ORAL SCH (08:48)
[2017-07-17] MEDS: Carvedilol 25mg Tab ORAL SCH ×2 (08:48→20:39)
[2017-07-17] MEDS: Lisinopril 2.5mg tab ORAL SCH (08:49)
[2017-07-17 12:00] VITALS: BP 101/59
--- NOTE | 2017-07-17 12:00 | Nephrology Progress Note ---
Assessment/Plan Problem List: (1) CHF (congestive heart failure) (2) Cardiomyopathy (3) Diabetic nephropathy (4) Respiratory failure Assessment Acute hypoxemic RF 2/2 CHF with ADHF and underlying MARSHA * CHF (LVEF 15%) with AHDF Left ventricular ejection fraction estimated to be 15-20 %. * Elevated cardiac biomarkers, likely demand ischemia * Morbid obesity * OSH/OHV, non-compliant with CPAP * Abnormal LFT's * H/O PE on A/C * Groin cellulitis * DM, and proteinuria * HTN, HL * UTI Plan KCL PO * Optimize cardiac status * Monitor lytes and renal parameters * antibiotics * KCL PO Subjective ROS Limited/Unobtainable: No Constitutional: Reports: malaise Objective Objective Last 24 Hour Vital Signs Date Time Temp Pulse Resp B/P (MAP) Pulse Ox O2 Delivery O2 Flow Rate FiO2 07/17/17 08:49 111/68 07/17/17 08:48 86 111/68 07/17/17 08:00 97.2 86 20 111/68 95 Nasal Cannula 3.0 32 97.2 07/17/17 07:16 92 20 99 Nasal Cannula 3.0 32 07/17/17 07:09 97 Nasal Cannula 3.0 32 07/17/17 07:09 86 20 97 Nasal Cannula 3.0 32 07/17/17 07:09 Nasal Cannula 3.0 32 07/17/17 05:20 80 23 98 Facial 28 07/17/17 04:00 97.0 79 20 117/66 99 Nasal Cannula 3.0 32 97.0 07/17/17 04:00 81 07/17/17 03:36 82 23 98 Facial 28 07/17/17 00:24 96 20 98 Nasal Cannula 2.0 28 07/17/17 00:24 85 15 99 Facial 28 07/17/17 00:23 82 20 98 Nasal Cannula 3.0 32 07/17/17 00:00 87 07/17/17 00:00 98.0 83 20 96/61 99 Nasal Cannula 3.0 32 98.0 07/16/17 21:00 86 104/69 07/16/17 20:00 89 07/16/17 20:00 96.0 86 20 104/69 99 Nasal Cannula 3.0 32 96.0 07/16/17 19:26 82 20 100 Nasal Cannula 3.0 32 07/16/17 19:18 86 20 98 Nasal Cannula 3.0 32 07/16/17 19:18 98 Nasal Cannula 3.0 32 07/16/17 19:18 Nasal Cannula 3.0 32 07/16/17 16:00 97.7 76 20 92/56 100 Nasal Cannula 3.0 32 97.7 07/16/17 16:00 76 07/16/17 13:27 84 20 100 Nasal Cannula 3.0 32 07/16/17 13:22 89 20 98 Nasal Cannula 3.0 32 07/16/17 12:00 97.6 82 20 95/51 100 Nasal Cannula 3.0 32 97.6 07/16/17 12:00 83 Intake and Output 07/16/17 07/17/17 19:00 07:00 Intake Total 450 ml Output Total 1400 ml 3500 ml Balance -950 ml -3500 ml Intake Oral 450 ml Output Urine Total 1400 ml 3500 ml Laboratory Tests 07/17/17 06:15: White Blood Count 8.4, Red Blood Count 5.26, Hemoglobin 14.8, Hematocrit 46.0, Mean Corpuscular Volume 87, Mean Corpuscular Hemoglobin 28.1, Mean Corpuscular Hemoglobin Concent 32.1, Red Cell Distribution Width 15.9H, Platelet Count 282, Mean Platelet Volume 6.6, Neutrophils (%) (Auto) 80.5H, Lymphocytes (%) (Auto) 9.0L, Monocytes (%) (Auto) 7.2, Eosinophils (%) (Auto) 1.5, Basophils (%) (Auto ) 1.8, Prothrombin Time 25.4H, Prothromb Time International Ratio 2.4H, Sodium Level 142, Potassium Level 2.8L, Chloride Level 99, Carbon Dioxide Level 36H, Anion Gap 7, Blood Urea Nitrogen 24H, Creatinine 1.3, Estimat Glomerular Filtration Rate 59.2, Glucose Level 128H, Uric Acid 8.1H, Calcium Level 9.6, Phosphorus Level 4.0, Magnesium Level 1.9, Total Bilirubin 2.3H, Direct Bilirubin 1.0H, Gamma Glutamyl Transpeptidase 207H, Aspartate Amino Transf (AST/ SGOT) 19, Alanine Aminotransferase (ALT/SGPT) 28, Alkaline Phosphatase 84, Total Creatine Kinase 42, Troponin I 0.024, Pro-B-Type Natriuretic Peptide 2743H , Total Protein 7.1, Albumin 3.0L, Globulin 4.1, Albumin/Globulin Ratio 0.7L, Triglycerides Level 75, Cholesterol Level 66, LDL Cholesterol 38, HDL Cholesterol 21L, Cholesterol/HDL Ratio 3.1L, Thyroid Stimulating Hormone (TSH) 4.107H Height (Feet): 5 Height (Inches): 10.00 Weight (Pounds): 362 General Appearance: no apparent distress Respiratory/Chest: decreased breath sounds Abdomen: other - obese Extremities: other - edema FLASH LEVI July 17, 2017 12:00
[2017-07-17 15:37] VITALS: BP 104/59
[2017-07-17] MEDS ORDERED: Warfarin Sodium 2mg ORAL SCH (17:00)
[2017-07-17 20:00] VITALS: BP 104/65
[2017-07-17] MEDS: Atorvastatin 20mg tab ORAL SCH (20:36)
[2017-07-18] VITALS: BP 101/65
[2017-07-18] MEDS: Albuterol/Ipratropium 3ml neb HHN SCH ×3 (01:00→13:16)
[2017-07-18 04:00] VITALS: BP 109/71
[2017-07-18] MEDS: NovoLOG Insulin Flexpen SUBQ SCH ×4 (06:27→21:26)
[2017-07-18 08:00] VITALS: BP 99/75
[2017-07-18] MEDS ORDERED: Albuterol/Ipratropium 3ml neb HHN PRN (08:30)
[2017-07-18 08:35] LABS: HEMATOCRIT 44.7 % (42.0-52.0); HEMOGLOBIN 14.6 G/DL (14.2-18.0); MEAN CORPUSCULAR VOLUME 87 FL (80-99); PLATELET COUNT 259 K/UL (150-450); RED BLOOD COUNT 5.17 M/UL (4.70-6.10); RED CELL DISTRIBUTION WIDTH 15.3 % (11.6-14.8); WHITE BLOOD COUNT 7.9 K/UL (4.8-10.8)
[2017-07-18 08:37] LABS: INR 1.9 (0.9-1.1)
[2017-07-18] MEDS: Aspirin Baby 81mg ORAL SCH (08:48)
[2017-07-18] MEDS: Carvedilol 25mg Tab ORAL SCH ×2 (08:49→21:23)
[2017-07-18] MEDS: Lisinopril 2.5mg tab ORAL SCH (08:50)
[2017-07-18 08:54] LABS: ALANINE AMINOTRANSFERASE 27 U/L (12-78); ALBUMIN 2.9 G/DL (3.4-5.0); ALBUMIN/GLOBULIN RATIO 0.7 (1.0-2.7); ALKALINE PHOSPHATASE 86 U/L (46-116); ANION GAP 6 mmol/L (5-15); ASPARTATE AMINO TRANSFERASE 23 U/L (15-37); BLOOD UREA NITROGEN 27 mg/dL (7-18); CALCIUM 9.5 MG/DL (8.5-10.1); CARBON DIOXIDE 38 MMOL/L (21-32); CHLORIDE 98 MMOL/L (98-107); CREATININE 1.2 MG/DL (0.55-1.30); POTASSIUM 3.2 MMOL/L (3.5-5.1); SODIUM 141 MMOL/L (136-145)
[2017-07-18 09:30] LABS: PHOSPHORUS 4.3 MG/DL (2.5-4.9)
--- NOTE | 2017-07-18 10:13 | Infectious Diseases Prog Note ---
Assessment/Plan Assessment/Plan antibiotics : doxycycline, levoquin A 1. pneumonia 2. groin cellulitis 3. CHF 4. obesity 5. diabetes mellitus 6. sleep apnea P 1. continue doxycycline, levoquin 2. will follow up cultures Subjective Constitutional: Denies: fever, chills Respiratory: Reports: shortness of breath - decreasing, productive cough Gastrointestinal/Abdominal: Denies: nausea, vomiting, diarrhea Musculoskeletal: Denies: pain Allergies: Coded Allergies: No Known Allergies (Unverified , 07/13/17) Objective Vital Signs Last 24 Hour Vital Signs Date Time Temp Pulse Resp B/P (MAP) Pulse Ox O2 Delivery O2 Flow Rate FiO2 07/18/17 08:50 99/75 07/18/17 08:49 95 99/75 07/18/17 08:00 96.6 95 20 99/75 96 Nasal Cannula 3.0 32 96.6 07/18/17 08:00 91 07/18/17 07:19 86 20 98 Nasal Cannula 2.0 28 07/18/17 07:11 79 18 97 Nasal Cannula 2.0 28 07/18/17 07:11 98 Nasal Cannula 2.0 28 07/18/17 07:11 Nasal Cannula 2.0 28 07/18/17 04:00 83 07/18/17 04:00 97.0 83 20 109/71 91 Nasal Cannula 3.0 32 97.0 07/18/17 01:04 Nasal Cannula 2.0 28 07/18/17 01:04 Nasal Cannula 2.0 28 07/18/17 00:00 78 07/18/17 00:00 97.0 83 21 101/65 98 Nasal Cannula 3.0 32 97.0 07/17/17 20:39 85 104/65 07/17/17 20:00 79 07/17/17 20:00 97.0 85 20 104/65 94 Nasal Cannula 3.0 32 97.0 07/17/17 19:38 85 20 96 Nasal Cannula 2.0 28 07/17/17 19:38 86 20 98 Nasal Cannula 2.0 28 07/17/17 19:37 97 Nasal Cannula 2.0 28 07/17/17 19:37 Nasal Cannula 2.0 28 07/17/17 16:00 76 07/17/17 15:37 97.2 77 20 104/59 98 Nasal Cannula 3.0 32 97.2 07/17/17 13:18 84 20 100 Nasal Cannula 3.0 32 07/17/17 13:10 79 18 96 Nasal Cannula 3.0 32 07/17/17 12:00 97.0 86 20 101/59 95 Nasal Cannula 3.0 32 97.0 07/17/17 12:00 82 Height (Feet): 5 Height (Inches): 10.00 Weight (Pounds): 367 Respiratory/Chest: lungs clear Cardiovascular: normal rate, regular rhythm, no gallop/murmur Abdomen: soft, non tender, other - groin erythema Extremities: other - + edema Laboratory Tests Test 07/18/17 06:50 White Blood Count 7.9 K/UL (4.8-10.8) Red Blood Count 5.17 M/UL (4.70-6.10) Hemoglobin 14.6 G/DL (14.2-18.0) Hematocrit 44.7 % (42.0-52.0) Mean Corpuscular Volume 87 FL (80-99) Mean Corpuscular Hemoglobin 28.2 PG (27.0-31.0) Mean Corpuscular Hemoglobin Concent 32.6 G/DL (32.0-36.0) Red Cell Distribution Width 15.3 % (11.6-14.8) H Platelet Count 259 K/UL (150-450) Mean Platelet Volume 6.4 FL (6.5-10.1) L Neutrophils (%) (Auto) % (45.0-75.0) Lymphocytes (%) (Auto) % (20.0-45.0) Monocytes (%) (Auto) % (1.0-10.0) Eosinophils (%) (Auto) % (0.0-3.0) Basophils (%) (Auto) % (0.0-2.0) Differential Total Cells Counted 100 Neutrophils % (Manual) 79 % (45-75) H Lymphocytes % (Manual) 15 % (20-45) L Monocytes % (Manual) 6 % (1-10) Eosinophils % (Manual) 0 % (0-3) Basophils % (Manual) 0 % (0-2) Band Neutrophils 0 % (0-8) Platelet Estimate Adequate Platelet Morphology Normal Anisocytosis 1+ Prothrombin Time 19.9 SEC (9.30-11.50) H Prothromb Time International Ratio 1.9 (0.9-1.1) H Sodium Level 141 MMOL/L (136-145) Potassium Level 3.2 MMOL/L (3.5-5.1) L Chloride Level 98 MMOL/L (98-107) Carbon Dioxide Level 38 MMOL/L (21-32) H Anion Gap 6 mmol/L (5-15) Blood Urea Nitrogen 27 mg/dL (7-18) H Creatinine 1.2 MG/DL (0.55-1.30) Estimat Glomerular Filtration Rate > 60 mL/min (>60) Glucose Level 135 MG/DL (74-106) H Uric Acid 8.2 MG/DL (2.6-7.2) H Calcium Level 9.5 MG/DL (8.5-10.1) Phosphorus Level 4.3 MG/DL (2.5-4.9) Magnesium Level 1.8 MG/DL (1.8-2.4) Total Bilirubin 2.0 MG/DL (0.2-1.0) H Direct Bilirubin 1.0 MG/DL (0.0-0.3) H Aspartate Amino Transf (AST/SGOT) 23 U/L (15-37) Alanine Aminotransferase (ALT/SGPT) 27 U/L (12-78) Alkaline Phosphatase 86 U/L (46-116) C-Reactive Protein, Quantitative 3.4 mg/dL (0.00-0.90) H Pro-B-Type Natriuretic Peptide 2245 pg/mL (0-125) H Total Protein 6.8 G/DL (6.4-8.2) Albumin 2.9 G/DL (3.4-5.0) L Globulin 3.9 g/dL Albumin/Globulin Ratio 0.7 (1.0-2.7) L Current Medications Medications (Trade) Dose Ordered Sig/Dago Route PRN Reason Start Time Stop Time Status Last Admin Dose Admin Acetaminophen (Tylenol) 650 mg Q4H PRN ORAL Mild Pain/Temp > 100.5 07/13/17 16:30 08/12/17 16:29 Albuterol/ Ipratropium (Albuterol/ Ipratropium) 3 ml Q4H PRN HHN Shortness of Breath 07/13/17 18:45 07/18/17 18:44 Albuterol/ Ipratropium (Albuterol/ Ipratropium) 3 ml Q6HRT HHN 07/13/17 19:00 07/18/17 18:59 07/18/17 07:11 Allopurinol (Allopurinol) 300 mg DAILY ORAL 07/14/17 09:00 08/13/17 08:59 07/18/17 08:48 Aspirin (ASA) 81 mg DAILY ORAL 07/16/17 09:00 08/13/17 08:59 07/18/17 08:48 Atorvastatin Calcium (Lipitor) 20 mg BEDTIME ORAL 07/13/17 21:00 08/12/17 20:59 07/17/17 20:36 Carvedilol (Coreg) 25 mg EVERY 12 HOURS ORAL 07/14/17 21:00 08/13/17 20:59 07/18/17 08:49 Clotrimazole (Lotrimin) 1 applic THREE TIMES A DAY TOPIC 07/16/17 13:00 08/15/17 12:59 07/18/17 09:00 Dextrose (Dextrose 50%) 25 ml STAT PRN IV Hypoglycemia 07/13/17 15:45 08/12/17 15:44 Doxycycline Monohydrate (Vibramycin) 100 mg EVERY 12 HOURS ORAL 07/16/17 21:00 07/23/17 20:59 07/18/17 08:48 Furosemide (Lasix) 80 mg Q12HR IV 07/13/17 23:37 08/12/17 23:36 07/18/17 08:47 Insulin Aspart (NovoLOG) BEFORE MEALS AND HS SUBQ 07/13/17 17:30 08/12/17 17:29 07/18/17 06:27 Levofloxacin (Levaquin) 750 mg Q24H ORAL 07/14/17 13:00 07/21/17 12:59 07/17/17 12:08 Lisinopril (Zestril) 5 mg DAILY ORAL 07/16/17 09:00 08/15/17 08:59 07/17/17 08:49 Metolazone (Zaroxolyn) 5 mg DAILY ORAL 07/15/17 20:00 08/14/17 19:59 07/18/17 08:48 Potassium Chloride (K-Dur) 40 meq Q6HR ORAL 07/17/17 13:00 08/16/17 12:59 07/18/17 05:36 Warfarin Sodium (Coumadin per pharmacy) 1 ea DAILY PRN MISC Per rx protocol 07/13/17 18:45 08/12/17 18:44 Warfarin Sodium (Coumadin) 4 mg COUMADIN ONCE PO 07/18/17 17:00 07/18/17 17:01 JASIEL MOULTON July 18, 2017 10:13
[2017-07-18 12:00] VITALS: BP 111/60
--- NOTE | 2017-07-18 14:43 | Nephrology Progress Note ---
Assessment/Plan Problem List: (1) CHF (congestive heart failure) (2) Cardiomyopathy (3) Diabetic nephropathy (4) Respiratory failure Assessment Acute hypoxemic RF 2/2 CHF with ADHF and underlying MARSHA * CHF (LVEF 15%) with AHDF Left ventricular ejection fraction estimated to be 15-20 %. * Elevated cardiac biomarkers, likely demand ischemia * Morbid obesity * OSH/OHV, non-compliant with CPAP * Abnormal LFT's * H/O PE on A/C * Groin cellulitis * DM, and proteinuria * HTN, HL * UTI * low K Plan KCL PO * Optimize cardiac status * Monitor lytes and renal parameters * antibiotics Subjective ROS Limited/Unobtainable: No Constitutional: Reports: malaise Objective Objective Last 24 Hour Vital Signs Date Time Temp Pulse Resp B/P (MAP) Pulse Ox O2 Delivery O2 Flow Rate FiO2 07/18/17 13:23 78 20 98 Nasal Cannula 2.0 28 07/18/17 13:16 76 18 96 Nasal Cannula 2.0 28 07/18/17 12:00 96.6 79 20 111/60 95 Nasal Cannula 3.0 32 96.6 07/18/17 12:00 77 07/18/17 08:50 99/75 07/18/17 08:49 95 99/75 07/18/17 08:00 96.6 95 20 99/75 96 Nasal Cannula 3.0 32 96.6 07/18/17 08:00 91 07/18/17 07:19 86 20 98 Nasal Cannula 2.0 28 07/18/17 07:11 79 18 97 Nasal Cannula 2.0 28 07/18/17 07:11 98 Nasal Cannula 2.0 28 07/18/17 07:11 Nasal Cannula 2.0 28 07/18/17 04:00 83 07/18/17 04:00 97.0 83 20 109/71 91 Nasal Cannula 3.0 32 97.0 07/18/17 01:04 Nasal Cannula 2.0 28 07/18/17 01:04 Nasal Cannula 2.0 28 07/18/17 00:00 78 07/18/17 00:00 97.0 83 21 101/65 98 Nasal Cannula 3.0 32 97.0 07/17/17 20:39 85 104/65 07/17/17 20:00 79 07/17/17 20:00 97.0 85 20 104/65 94 Nasal Cannula 3.0 32 97.0 07/17/17 19:38 85 20 96 Nasal Cannula 2.0 28 07/17/17 19:38 86 20 98 Nasal Cannula 2.0 28 07/17/17 19:37 97 Nasal Cannula 2.0 28 07/17/17 19:37 Nasal Cannula 2.0 28 07/17/17 16:00 76 07/17/17 15:37 97.2 77 20 104/59 98 Nasal Cannula 3.0 32 97.2 Intake and Output 07/17/17 07/18/17 19:00 07:00 Intake Total 600 ml 120 ml Output Total 2500 ml 3800 ml Balance -1900 ml -3680 ml Intake Oral 600 ml 120 ml Output Urine Total 2500 ml 3800 ml # Bowel Movements 1 Laboratory Tests 07/18/17 06:50: White Blood Count 7.9, Red Blood Count 5.17, Hemoglobin 14.6, Hematocrit 44.7, Mean Corpuscular Volume 87, Mean Corpuscular Hemoglobin 28.2, Mean Corpuscular Hemoglobin Concent 32.6, Red Cell Distribution Width 15.3H, Platelet Count 259, Mean Platelet Volume 6.4L, Neutrophils (%) (Auto) , Lymphocytes (%) (Auto) , Monocytes (%) (Auto) , Eosinophils (%) (Auto) , Basophils (%) (Auto) , Differential Total Cells Counted 100, Neutrophils % (Manual) 79H, Lymphocytes % (Manual) 15L, Monocytes % (Manual) 6, Eosinophils % (Manual) 0, Basophils % ( Manual) 0, Band Neutrophils 0, Platelet Estimate Adequate, Platelet Morphology Normal, Anisocytosis 1+, Prothrombin Time 19.9H, Prothromb Time International Ratio 1.9H, Sodium Level 141, Potassium Level 3.2L, Chloride Level 98, Carbon Dioxide Level 38H, Anion Gap 6, Blood Urea Nitrogen 27H, Creatinine 1.2, Estimat Glomerular Filtration Rate > 60, Glucose Level 135H, Uric Acid 8.2H, Calcium Level 9.5, Phosphorus Level 4.3, Magnesium Level 1.8, Total Bilirubin 2.0H, Direct Bilirubin 1.0H, Aspartate Amino Transf (AST/SGOT) 23, Alanine Aminotransferase (ALT/SGPT) 27, Alkaline Phosphatase 86, C-Reactive Protein, Quantitative 3.4H, Pro-B-Type Natriuretic Peptide 2245H, Total Protein 6.8, Albumin 2.9L, Globulin 3.9, Albumin/Globulin Ratio 0.7L Height (Feet): 5 Height (Inches): 10.00 Weight (Pounds): 367 General Appearance: no apparent distress Respiratory/Chest: decreased breath sounds Abdomen: other - obese FLASH LEVI July 18, 2017 14:43
[2017-07-18 16:00] VITALS: BP 95/62
[2017-07-18] MEDS ORDERED: Warfarin Sodium 4mg PO ONE (17:00)
--- NOTE | 2017-07-18 18:52 | Pulmonology Progress Note ---
Assessment/Plan Assessment/Plan * Acute hypoxemic RF 2/2 CHF with ADHF and underlying MARSHA * CHF (LVEF 15%) with AHDF * Elevated cardiac biomarkers, likely demand ischemia * Morbid obesity * OSH/OHV, non-compliant with CPAP * Abnormal LFT's * H/O PE on A/C * Groin cellulitis * DM, HTN, HL PLAN: * Titrate down FiO2 to keep SaO2 > 90% * BiPAP 12/5 qHS and PRN if he will use * RTC and PRN HHN's * Continue Lasix & Metolazone as tolerated * Monitor volumes and renal function * F/U cardiology recs * COUMADIN per Rx * doxy and Levaquin per ID * Consider DERM or PLASTICS eval of groin rash * Aspiration precautions * DVT Px: A/C * FC * SW eval, needs to establish outpatient care Subjective Constitutional: Reports: no symptoms HEENT: Repors: no symptoms Respiratory: Reports: no symptoms Allergies: Coded Allergies: No Known Allergies (Unverified , 07/13/17) Subjective did not used cpap last night did not sleep well no cp nv or bleeding del real in place positive uop no fever Objective Last 24 Hour Vital Signs Date Time Temp Pulse Resp B/P (MAP) Pulse Ox O2 Delivery O2 Flow Rate FiO2 07/18/17 16:00 76 07/18/17 16:00 96.0 80 20 95/62 97 Nasal Cannula 3.0 32 96.0 07/18/17 13:23 78 20 98 Nasal Cannula 2.0 28 07/18/17 13:16 76 18 96 Nasal Cannula 2.0 28 07/18/17 12:00 96.6 79 20 111/60 95 Nasal Cannula 3.0 32 96.6 07/18/17 12:00 77 07/18/17 08:50 99/75 07/18/17 08:49 95 99/75 07/18/17 08:00 96.6 95 20 99/75 96 Nasal Cannula 3.0 32 96.6 07/18/17 08:00 91 07/18/17 07:19 86 20 98 Nasal Cannula 2.0 28 07/18/17 07:11 79 18 97 Nasal Cannula 2.0 28 07/18/17 07:11 98 Nasal Cannula 2.0 28 07/18/17 07:11 Nasal Cannula 2.0 28 07/18/17 04:00 83 07/18/17 04:00 97.0 83 20 109/71 91 Nasal Cannula 3.0 32 97.0 07/18/17 01:04 Nasal Cannula 2.0 28 07/18/17 01:04 Nasal Cannula 2.0 28 07/18/17 00:00 78 07/18/17 00:00 97.0 83 21 101/65 98 Nasal Cannula 3.0 32 97.0 07/17/17 20:39 85 104/65 07/17/17 20:00 79 07/17/17 20:00 97.0 85 20 104/65 94 Nasal Cannula 3.0 32 97.0 07/17/17 19:38 85 20 96 Nasal Cannula 2.0 28 07/17/17 19:38 86 20 98 Nasal Cannula 2.0 28 07/17/17 19:37 97 Nasal Cannula 2.0 28 07/17/17 19:37 Nasal Cannula 2.0 28 Intake and Output 07/17/17 07/18/17 19:00 07:00 Intake Total 600 ml 120 ml Output Total 2500 ml 3800 ml Balance -1900 ml -3680 ml Intake Oral 600 ml 120 ml Output Urine Total 2500 ml 3800 ml # Bowel Movements 1 General Appearance: WD/WN Respiratory/Chest: crackles/rales Cardiovascular: regular rhythm, no gallop/murmur, edema Abdomen: soft, non tender, no organomegaly Extremities: no cyanosis Neurologic/Psychiatric: alert, oriented x 3 Laboratory Tests 07/18/17 06:50: White Blood Count 7.9, Red Blood Count 5.17, Hemoglobin 14.6, Hematocrit 44.7, Mean Corpuscular Volume 87, Mean Corpuscular Hemoglobin 28.2, Mean Corpuscular Hemoglobin Concent 32.6, Red Cell Distribution Width 15.3H, Platelet Count 259, Mean Platelet Volume 6.4L, Neutrophils (%) (Auto) , Lymphocytes (%) (Auto) , Monocytes (%) (Auto) , Eosinophils (%) (Auto) , Basophils (%) (Auto) , Differential Total Cells Counted 100, Neutrophils % (Manual) 79H, Lymphocytes % (Manual) 15L, Monocytes % (Manual) 6, Eosinophils % (Manual) 0, Basophils % ( Manual) 0, Band Neutrophils 0, Platelet Estimate Adequate, Platelet Morphology Normal, Anisocytosis 1+, Prothrombin Time 19.9H, Prothromb Time International Ratio 1.9H, Sodium Level 141, Potassium Level 3.2L, Chloride Level 98, Carbon Dioxide Level 38H, Anion Gap 6, Blood Urea Nitrogen 27H, Creatinine 1.2, Estimat Glomerular Filtration Rate > 60, Glucose Level 135H, Uric Acid 8.2H, Calcium Level 9.5, Phosphorus Level 4.3, Magnesium Level 1.8, Total Bilirubin 2.0H, Direct Bilirubin 1.0H, Aspartate Amino Transf (AST/SGOT) 23, Alanine Aminotransferase (ALT/SGPT) 27, Alkaline Phosphatase 86, C-Reactive Protein, Quantitative 3.4H, Pro-B-Type Natriuretic Peptide 2245H, Total Protein 6.8, Albumin 2.9L, Globulin 3.9, Albumin/Globulin Ratio 0.7L Current Medications Medications (Trade) Dose Ordered Sig/Dago Route PRN Reason Start Time Stop Time Status Last Admin Dose Admin Acetaminophen (Tylenol) 650 mg Q4H PRN ORAL Mild Pain/Temp > 100.5 07/13/17 16:30 08/12/17 16:29 Albuterol/ Ipratropium (Albuterol/ Ipratropium) 3 ml Q6HRT HHN 07/13/17 19:00 07/18/17 18:59 07/18/17 13:16 Allopurinol (Allopurinol) 300 mg DAILY ORAL 07/14/17 09:00 08/13/17 08:59 07/18/17 08:48 Aspirin (ASA) 81 mg DAILY ORAL 07/16/17 09:00 08/13/17 08:59 07/18/17 08:48 Atorvastatin Calcium (Lipitor) 20 mg BEDTIME ORAL 07/13/17 21:00 08/12/17 20:59 07/17/17 20:36 Carvedilol (Coreg) 25 mg EVERY 12 HOURS ORAL 07/14/17 21:00 08/13/17 20:59 07/18/17 08:49 Clotrimazole (Lotrimin) 1 applic THREE TIMES A DAY TOPIC 07/16/17 13:00 08/15/17 12:59 07/18/17 17:40 Dextrose (Dextrose 50%) 25 ml STAT PRN IV Hypoglycemia 07/13/17 15:45 08/12/17 15:44 Doxycycline Monohydrate (Vibramycin) 100 mg EVERY 12 HOURS ORAL 07/16/17 21:00 07/23/17 20:59 07/18/17 08:48 Furosemide (Lasix) 80 mg Q12HR IV 07/13/17 23:37 08/12/17 23:36 07/18/17 08:47 Insulin Aspart (NovoLOG) BEFORE MEALS AND HS SUBQ 07/13/17 17:30 08/12/17 17:29 07/18/17 17:39 Levofloxacin (Levaquin) 750 mg Q24H ORAL 07/14/17 13:00 07/21/17 12:59 07/18/17 12:13 Lisinopril (Zestril) 5 mg DAILY ORAL 07/16/17 09:00 08/15/17 08:59 07/17/17 08:49 Metolazone (Zaroxolyn) 5 mg DAILY ORAL 07/15/17 20:00 08/14/17 19:59 07/18/17 08:48 Potassium Chloride (K-Dur) 40 meq Q6HR ORAL 07/17/17 13:00 08/16/17 12:59 07/18/17 17:30 Warfarin Sodium (Coumadin per pharmacy) 1 ea DAILY PRN MISC Per rx protocol 07/13/17 18:45 08/12/17 18:44 LEO JAFFE DO July 18, 2017 18:52
[2017-07-18 20:00] VITALS: BP 93/67
--- NOTE | 2017-07-18 20:38 | General Progress Note ---
Assessment/Plan Problem List: (1) CHF (congestive heart failure) ICD Codes: I50.9 - Heart failure, unspecified SNOMED: 68659970 Qualifiers: Qualified Codes: I50.9 - Heart failure, unspecified Status: progressing Assessment/Plan clinically improving chf exacerbation morbid obesity scrotal edema still needs diures Subjective ROS Limited/Unobtainable: Yes Allergies: Coded Allergies: No Known Allergies (Unverified , 07/13/17) Objective Last 24 Hour Vital Signs Date Time Temp Pulse Resp B/P (MAP) Pulse Ox O2 Delivery O2 Flow Rate FiO2 07/18/17 20:00 97.0 89 21 93/67 97 Nasal Cannula 3.0 32 97.0 07/18/17 19:58 87 07/18/17 19:22 Nasal Cannula 07/18/17 19:13 28 07/18/17 19:12 97 Nasal Cannula 2.0 28 07/18/17 19:12 Nasal Cannula 2.0 28 07/18/17 19:12 76 20 97 Nasal Cannula 2.0 28 07/18/17 16:00 76 07/18/17 16:00 96.0 80 20 95/62 97 Nasal Cannula 3.0 32 96.0 07/18/17 13:23 78 20 98 Nasal Cannula 2.0 28 07/18/17 13:16 76 18 96 Nasal Cannula 2.0 28 07/18/17 12:00 96.6 79 20 111/60 95 Nasal Cannula 3.0 32 96.6 07/18/17 12:00 77 07/18/17 08:50 99/75 07/18/17 08:49 95 99/75 07/18/17 08:00 96.6 95 20 99/75 96 Nasal Cannula 3.0 32 96.6 07/18/17 08:00 91 07/18/17 07:19 86 20 98 Nasal Cannula 2.0 28 07/18/17 07:11 79 18 97 Nasal Cannula 2.0 28 07/18/17 07:11 98 Nasal Cannula 2.0 28 07/18/17 07:11 Nasal Cannula 2.0 28 07/18/17 04:00 83 07/18/17 04:00 97.0 83 20 109/71 91 Nasal Cannula 3.0 32 97.0 07/18/17 01:04 Nasal Cannula 2.0 28 07/18/17 01:04 Nasal Cannula 2.0 28 07/18/17 00:00 78 07/18/17 00:00 97.0 83 21 101/65 98 Nasal Cannula 3.0 32 97.0 07/17/17 20:39 85 104/65 Intake and Output 07/17/17 07/18/17 19:00 07:00 Intake Total 600 ml 120 ml Output Total 2500 ml 3800 ml Balance -1900 ml -3680 ml Intake Oral 600 ml 120 ml Output Urine Total 2500 ml 3800 ml # Bowel Movements 1 Laboratory Tests 07/18/17 06:50: White Blood Count 7.9, Red Blood Count 5.17, Hemoglobin 14.6, Hematocrit 44.7, Mean Corpuscular Volume 87, Mean Corpuscular Hemoglobin 28.2, Mean Corpuscular Hemoglobin Concent 32.6, Red Cell Distribution Width 15.3H, Platelet Count 259, Mean Platelet Volume 6.4L, Neutrophils (%) (Auto) , Lymphocytes (%) (Auto) , Monocytes (%) (Auto) , Eosinophils (%) (Auto) , Basophils (%) (Auto) , Differential Total Cells Counted 100, Neutrophils % (Manual) 79H, Lymphocytes % (Manual) 15L, Monocytes % (Manual) 6, Eosinophils % (Manual) 0, Basophils % ( Manual) 0, Band Neutrophils 0, Platelet Estimate Adequate, Platelet Morphology Normal, Anisocytosis 1+, Prothrombin Time 19.9H, Prothromb Time International Ratio 1.9H, Sodium Level 141, Potassium Level 3.2L, Chloride Level 98, Carbon Dioxide Level 38H, Anion Gap 6, Blood Urea Nitrogen 27H, Creatinine 1.2, Estimat Glomerular Filtration Rate > 60, Glucose Level 135H, Uric Acid 8.2H, Calcium Level 9.5, Phosphorus Level 4.3, Magnesium Level 1.8, Total Bilirubin 2.0H, Direct Bilirubin 1.0H, Aspartate Amino Transf (AST/SGOT) 23, Alanine Aminotransferase (ALT/SGPT) 27, Alkaline Phosphatase 86, C-Reactive Protein, Quantitative 3.4H, Pro-B-Type Natriuretic Peptide 2245H, Total Protein 6.8, Albumin 2.9L, Globulin 3.9, Albumin/Globulin Ratio 0.7L Height (Feet): 5 Height (Inches): 10.00 Weight (Pounds): 367 Abdomen: soft Ronny Nina MD July 18, 2017 20:38
[2017-07-18] MEDS: Atorvastatin 20mg tab ORAL SCH (21:23)
--- NOTE | 2017-07-18 23:38 | Cardiology Progress Note ---
Assessment/Plan Assessment/Plan 1. Acute on chronic systolic CHF, BNP is downtrending, continue metolazone and lasix, creatinine is stable. 2. History of nonischemic cardiomyopathy. 3. Slight elevation of troponin I level could be due to myocarditis, doubt this is acute coronary syndrome given lack of chest pain. 4. History of pulmonary embolism. On warfarin. INR target between 2 to 3. 5. Diabetes mellitus, uncontrolled. 6. MIKE 7. Dyslipidemia with low HDL. Subjective Subjective Sinus rhythm at 85. Objective Last 24 Hour Vital Signs Date Time Temp Pulse Resp B/P (MAP) Pulse Ox O2 Delivery O2 Flow Rate FiO2 07/18/17 22:05 94 07/18/17 21:23 85 100/66 07/18/17 20:00 97.0 89 21 93/67 97 Nasal Cannula 3.0 32 97.0 07/18/17 19:58 87 07/18/17 19:22 Nasal Cannula 07/18/17 19:13 28 07/18/17 19:12 97 Nasal Cannula 2.0 28 07/18/17 19:12 Nasal Cannula 2.0 28 07/18/17 19:12 76 20 97 Nasal Cannula 2.0 28 07/18/17 16:00 76 07/18/17 16:00 96.0 80 20 95/62 97 Nasal Cannula 3.0 32 96.0 07/18/17 13:23 78 20 98 Nasal Cannula 2.0 28 07/18/17 13:16 76 18 96 Nasal Cannula 2.0 28 07/18/17 12:00 96.6 79 20 111/60 95 Nasal Cannula 3.0 32 96.6 07/18/17 12:00 77 07/18/17 08:50 99/75 07/18/17 08:49 95 99/75 07/18/17 08:00 96.6 95 20 99/75 96 Nasal Cannula 3.0 32 96.6 07/18/17 08:00 91 07/18/17 07:19 86 20 98 Nasal Cannula 2.0 28 07/18/17 07:11 79 18 97 Nasal Cannula 2.0 28 07/18/17 07:11 98 Nasal Cannula 2.0 28 07/18/17 07:11 Nasal Cannula 2.0 28 07/18/17 04:00 83 07/18/17 04:00 97.0 83 20 109/71 91 Nasal Cannula 3.0 32 97.0 07/18/17 01:04 Nasal Cannula 2.0 28 07/18/17 01:04 Nasal Cannula 2.0 28 07/18/17 00:00 78 07/18/17 00:00 97.0 83 21 101/65 98 Nasal Cannula 3.0 32 97.0 Intake and Output 07/17/17 07/18/17 19:00 07:00 Intake Total 600 ml 120 ml Output Total 2500 ml 3800 ml Balance -1900 ml -3680 ml Intake Oral 600 ml 120 ml Output Urine Total 2500 ml 3800 ml # Bowel Movements 1 2D Echo: LVEF 15%, Mild LVH, LAE, Global LV HK, RVSP 63, Mod MR, Grade I LVDD Laboratory Tests Test 07/18/17 06:50 White Blood Count 7.9 K/UL (4.8-10.8) Red Blood Count 5.17 M/UL (4.70-6.10) Hemoglobin 14.6 G/DL (14.2-18.0) Hematocrit 44.7 % (42.0-52.0) Mean Corpuscular Volume 87 FL (80-99) Mean Corpuscular Hemoglobin 28.2 PG (27.0-31.0) Mean Corpuscular Hemoglobin Concent 32.6 G/DL (32.0-36.0) Red Cell Distribution Width 15.3 % (11.6-14.8) H Platelet Count 259 K/UL (150-450) Mean Platelet Volume 6.4 FL (6.5-10.1) L Neutrophils (%) (Auto) % (45.0-75.0) Lymphocytes (%) (Auto) % (20.0-45.0) Monocytes (%) (Auto) % (1.0-10.0) Eosinophils (%) (Auto) % (0.0-3.0) Basophils (%) (Auto) % (0.0-2.0) Differential Total Cells Counted 100 Neutrophils % (Manual) 79 % (45-75) H Lymphocytes % (Manual) 15 % (20-45) L Monocytes % (Manual) 6 % (1-10) Eosinophils % (Manual) 0 % (0-3) Basophils % (Manual) 0 % (0-2) Band Neutrophils 0 % (0-8) Platelet Estimate Adequate Platelet Morphology Normal Anisocytosis 1+ Prothrombin Time 19.9 SEC (9.30-11.50) H Prothromb Time International Ratio 1.9 (0.9-1.1) H Sodium Level 141 MMOL/L (136-145) Potassium Level 3.2 MMOL/L (3.5-5.1) L Chloride Level 98 MMOL/L (98-107) Carbon Dioxide Level 38 MMOL/L (21-32) H Anion Gap 6 mmol/L (5-15) Blood Urea Nitrogen 27 mg/dL (7-18) H Creatinine 1.2 MG/DL (0.55-1.30) Estimat Glomerular Filtration Rate > 60 mL/min (>60) Glucose Level 135 MG/DL (74-106) H Uric Acid 8.2 MG/DL (2.6-7.2) H Calcium Level 9.5 MG/DL (8.5-10.1) Phosphorus Level 4.3 MG/DL (2.5-4.9) Magnesium Level 1.8 MG/DL (1.8-2.4) Total Bilirubin 2.0 MG/DL (0.2-1.0) H Direct Bilirubin 1.0 MG/DL (0.0-0.3) H Aspartate Amino Transf (AST/SGOT) 23 U/L (15-37) Alanine Aminotransferase (ALT/SGPT) 27 U/L (12-78) Alkaline Phosphatase 86 U/L (46-116) C-Reactive Protein, Quantitative 3.4 mg/dL (0.00-0.90) H Pro-B-Type Natriuretic Peptide 2245 pg/mL (0-125) H Total Protein 6.8 G/DL (6.4-8.2) Albumin 2.9 G/DL (3.4-5.0) L Globulin 3.9 g/dL Albumin/Globulin Ratio 0.7 (1.0-2.7) L Objective HEENT: Atraumatic and normocephalic. Anicteric. Pupils are equal, round, and reactive to light and accommodation. Extraocular muscles intact. NECK: Hard to evaluate JVD. No carotid bruit. Carotid upstrokes 2+ bilaterally. CARDIOVASCULAR: Normal S1 and S2. PMI is at fourth intercostal space at the midclavicular line. LUNGS: Diminished breath sounds in both bases, some scattered crackles, and rhonchi. ABDOMEN: Distended. I do not appreciate any hepatosplenomegaly. Positive bowel sounds. EXTREMITIES: There is 3+ to 4+ bilateral lower extremity edema as well as scrotal edema. Sergio Dumas MD July 18, 2017 23:38
[2017-07-19] VITALS (7 sets, daily range): BP systolic 83–109; BP diastolic 47–75
[2017-07-19] MEDS: Albuterol/Ipratropium 3ml neb HHN SCH ×4 (01:13→19:56)
[2017-07-19] MEDS: NovoLOG Insulin Flexpen SUBQ SCH ×4 (06:04→21:57)
[2017-07-19] MEDS: Lisinopril 2.5mg tab ORAL SCH (09:00)
[2017-07-19] MEDS: Aspirin Baby 81mg ORAL SCH (09:00)
[2017-07-19] MEDS: Carvedilol 25mg Tab ORAL SCH ×2 (09:01→21:00)
[2017-07-19 09:15] LABS: INR 1.7 (0.9-1.1)
--- NOTE | 2017-07-19 09:42 | Nephrology Progress Note ---
Assessment/Plan Problem List: (1) CHF (congestive heart failure) (2) Cardiomyopathy (3) Diabetic nephropathy (4) Respiratory failure Assessment Acute hypoxemic RF 2/2 CHF with ADHF and underlying MARSHA * CHF (LVEF 15%) with AHDF Left ventricular ejection fraction estimated to be 15-20 %. * Elevated cardiac biomarkers, likely demand ischemia * Morbid obesity * OSH/OHV, non-compliant with CPAP * Abnormal LFT's * H/O PE on A/C * Groin cellulitis * DM, and proteinuria * HTN, HL * UTI * low K Plan No labs today KCL PO Optimize cardiac status Monitor lytes and renal parameters antibiotics Subjective ROS Limited/Unobtainable: No Constitutional: Reports: malaise Objective Objective Last 24 Hour Vital Signs Date Time Temp Pulse Resp B/P (MAP) Pulse Ox O2 Delivery O2 Flow Rate FiO2 07/19/17 09:01 86 106/75 07/19/17 09:00 106/75 07/19/17 08:10 95 Nasal Cannula 1.0 24 07/19/17 08:10 24 07/19/17 08:10 86 21 95 Nasal Cannula 1.0 24 07/19/17 08:10 Room Air 1.0 24 07/19/17 08:00 97.3 94 20 106/75 92 Nasal Cannula 3.0 32 97.3 07/19/17 04:00 79 07/19/17 04:00 97.2 72 20 83/47 96 Nasal Cannula 3.0 32 97.2 07/19/17 01:21 85 21 96 3.0 32 07/19/17 01:17 85 21 96 Facial 28 07/19/17 01:12 85 21 94 Nasal Cannula 3.0 32 07/19/17 01:12 32 07/19/17 00:00 85 07/19/17 00:00 97.3 87 21 96/67 97 Nasal Cannula 3.0 32 97.3 07/18/17 22:05 94 07/18/17 21:23 85 100/66 07/18/17 20:00 97.0 89 21 93/67 97 Nasal Cannula 3.0 32 97.0 07/18/17 19:58 87 07/18/17 19:22 Nasal Cannula 07/18/17 19:13 28 07/18/17 19:12 97 Nasal Cannula 2.0 28 07/18/17 19:12 Nasal Cannula 2.0 28 07/18/17 19:12 76 20 97 Nasal Cannula 2.0 28 07/18/17 16:00 76 07/18/17 16:00 96.0 80 20 95/62 97 Nasal Cannula 3.0 32 96.0 07/18/17 13:23 78 20 98 Nasal Cannula 2.0 28 07/18/17 13:16 76 18 96 Nasal Cannula 2.0 28 07/18/17 12:00 96.6 79 20 111/60 95 Nasal Cannula 3.0 32 96.6 07/18/17 12:00 77 Intake and Output 07/18/17 07/19/17 19:00 07:00 Intake Total 800 ml Output Total 3500 ml 2600 ml Balance -2700 ml -2600 ml Intake Oral 800 ml Output Urine Total 3500 ml 2600 ml Laboratory Tests 07/19/17 07:05: Prothrombin Time 17.9H, Prothromb Time International Ratio 1.7H Height (Feet): 5 Height (Inches): 10.00 Weight (Pounds): 347 General Appearance: no apparent distress Cardiovascular: tachycardia Respiratory/Chest: decreased breath sounds Abdomen: distended FLASH LEVI July 19, 2017 09:42
[2017-07-19] MEDS ORDERED: Warfarin Sodium 4mg PO ONE (17:00)
--- NOTE | 2017-07-19 19:46 | Pulmonology Progress Note ---
Assessment/Plan Assessment/Plan ASSESSMENT: * Acute hypoxemic RF 2/2 CHF with ADHF and underlying MARSHA * CHF (LVEF 15%) with AHDF * Elevated cardiac biomarkers, likely demand ischemia * Morbid obesity * OSH/OHV, non-compliant with CPAP * Abnormal LFT's * H/O PE on A/C * Groin cellulitis * DM, HTN, HL PLAN: * Optimize pulmonary hygiene/mobilize as tolerated * Titrate down FiO2 to keep SaO2 > 90% * BiPAP 12/5 qHS and PRN - ENCOURAGE COMPLIANCE * RTC and PRN HHN's * Continue Lasix & Metolazone as tolerated * Monitor volumes and renal function * F/U cardiology recs * COUMADIN per Rx * Abx per ID * Aspiration precautions * DVT Px: A/C * FC * SW eval, needs to establish outpatient care Larry Daniels MD, [facility] Pul[facility] Subjective Allergies: Coded Allergies: No Known Allergies (Unverified , 07/13/17) Subjective AFVSS, stable O2 needs, -5.3, Cr scott diuresis Refused BiPAP ON Less SOB, no cough, less orthopnea, no PND, less CHRISTA, no NVDC, feels better overall Objective Last 24 Hour Vital Signs Date Time Temp Pulse Resp B/P (MAP) Pulse Ox O2 Delivery O2 Flow Rate FiO2 07/19/17 16:00 97.2 76 20 98/53 97 Nasal Cannula 3.0 32 97.2 07/19/17 16:00 73 07/19/17 13:11 82 18 98 2.0 24 07/19/17 13:02 83 21 98 Nasal Cannula 1.0 24 07/19/17 13:02 24 07/19/17 12:00 77 07/19/17 12:00 97.3 78 19 109/54 97 Nasal Cannula 3.0 32 97.3 07/19/17 09:01 86 106/75 07/19/17 09:00 106/75 07/19/17 08:10 Nasal Cannula 07/19/17 08:10 95 Nasal Cannula 1.0 24 07/19/17 08:10 24 07/19/17 08:10 86 21 95 Nasal Cannula 1.0 24 07/19/17 08:10 Room Air 1.0 24 07/19/17 08:00 92 07/19/17 08:00 97.3 94 20 106/75 92 Nasal Cannula 3.0 32 97.3 07/19/17 04:00 79 07/19/17 04:00 97.2 72 20 83/47 96 Nasal Cannula 3.0 32 97.2 07/19/17 01:21 85 21 96 3.0 32 07/19/17 01:17 85 21 96 Facial 28 07/19/17 01:12 85 21 94 Nasal Cannula 3.0 32 07/19/17 01:12 32 07/19/17 00:00 85 07/19/17 00:00 97.3 87 21 96/67 97 Nasal Cannula 3.0 32 97.3 07/18/17 22:05 94 07/18/17 21:23 85 100/66 07/18/17 20:00 97.0 89 21 93/67 97 Nasal Cannula 3.0 32 97.0 07/18/17 19:58 87 Intake and Output 07/18/17 07/19/17 19:00 07:00 Intake Total 800 ml Output Total 3500 ml 2600 ml Balance -2700 ml -2600 ml Intake Oral 800 ml Output Urine Total 3500 ml 2600 ml General Appearance: no acute distress, other - morbidly obese male HEENT: normocephalic, atraumatic, anicteric, mucous membranes moist Respiratory/Chest: chest wall non-tender, lungs clear, normal breath sounds - but distant, no respiratory distress, no accessory muscle use Cardiovascular: normal peripheral pulses, normal rate, regular rhythm Abdomen: normal bowel sounds, soft, non tender, no organomegaly, non distended , no mass Extremities: no cyanosis, no clubbing, other - 2+ CHRISTA Laboratory Tests 07/19/17 07:05: Prothrombin Time 17.9H, Prothromb Time International Ratio 1.7H Current Medications Medications (Trade) Dose Ordered Sig/Dago Route PRN Reason Start Time Stop Time Status Last Admin Dose Admin Acetaminophen (Tylenol) 650 mg Q4H PRN ORAL Mild Pain/Temp > 100.5 07/13/17 16:30 08/12/17 16:29 07/18/17 21:25 Albuterol/ Ipratropium (Albuterol/ Ipratropium) 3 ml Q4H PRN HHN Shortness of Breath 5/20/18 08:30 07/23/17 08:29 Albuterol/ Ipratropium (Albuterol/ Ipratropium) 3 ml Q6HRT HHN 07/19/17 01:00 07/24/17 00:59 07/19/17 13:04 Allopurinol (Allopurinol) 300 mg DAILY ORAL 07/14/17 09:00 08/13/17 08:59 07/19/17 09:00 Aspirin (ASA) 81 mg DAILY ORAL 07/16/17 09:00 08/13/17 08:59 07/19/17 09:00 Atorvastatin Calcium (Lipitor) 20 mg BEDTIME ORAL 07/13/17 21:00 08/12/17 20:59 07/18/17 21:23 Carvedilol (Coreg) 25 mg EVERY 12 HOURS ORAL 07/14/17 21:00 08/13/17 20:59 07/19/17 09:01 Clotrimazole (Lotrimin) 1 applic THREE TIMES A DAY TOPIC 07/16/17 13:00 08/15/17 12:59 07/19/17 17:53 Dextrose (Dextrose 50%) 25 ml STAT PRN IV Hypoglycemia 07/13/17 15:45 08/12/17 15:44 Doxycycline Monohydrate (Vibramycin) 100 mg EVERY 12 HOURS ORAL 07/16/17 21:00 07/23/17 20:59 07/19/17 09:00 Furosemide (Lasix) 80 mg Q12HR IV 07/13/17 23:37 08/12/17 23:36 07/19/17 08:59 Insulin Aspart (NovoLOG) BEFORE MEALS AND HS SUBQ 07/13/17 17:30 08/12/17 17:29 07/19/17 17:13 Levofloxacin (Levaquin) 750 mg Q24H ORAL 07/14/17 13:00 07/21/17 12:59 07/19/17 13:39 Lisinopril (Zestril) 5 mg DAILY ORAL 07/16/17 09:00 08/15/17 08:59 07/19/17 09:00 Metolazone (Zaroxolyn) 5 mg DAILY ORAL 07/15/17 20:00 08/14/17 19:59 07/19/17 09:00 Potassium Chloride (K-Dur) 40 meq BID ORAL 07/19/17 18:00 08/16/17 12:59 07/19/17 17:52 Warfarin Sodium (Coumadin per pharmacy) 1 ea DAILY PRN MISC Per rx protocol 07/13/17 18:45 08/12/17 18:44 LARRY DANIELS M.D. July 19, 2017 19:46
--- NOTE | 2017-07-19 21:49 | General Progress Note ---
Assessment/Plan Problem List: (1) CHF (congestive heart failure) ICD Codes: I50.9 - Heart failure, unspecified SNOMED: [id number] Qualifiers: Qualified Codes: I50.9 - Heart failure, unspecified Status: progressing Assessment/Plan low k afebrile reviewed chart and labs still has intermittent sob chf exacerbation morbid obesity scrotal edema Subjective HEENT: Reports: no symptoms Respiratory: Reports: shortness of breath Allergies: Coded Allergies: No Known Allergies (Unverified , 07/13/17) Objective Last 24 Hour Vital Signs Date Time Temp Pulse Resp B/P (MAP) Pulse Ox O2 Delivery O2 Flow Rate FiO2 07/19/17 20:07 83 20 96 Nasal Cannula 2.0 24 07/19/17 20:00 97.2 85 20 94/61 92 Nasal Cannula 3.0 32 97.2 07/19/17 20:00 81 07/19/17 19:58 81 18 93 Room Air 1.0 21 07/19/17 19:58 93 Nasal Cannula 21 07/19/17 19:58 Room Air 21 07/19/17 16:00 97.2 76 20 98/53 97 Nasal Cannula 3.0 32 97.2 07/19/17 16:00 73 07/19/17 13:11 82 18 98 2.0 24 07/19/17 13:02 83 21 98 Nasal Cannula 1.0 24 07/19/17 13:02 24 07/19/17 12:00 77 07/19/17 12:00 97.3 78 19 109/54 97 Nasal Cannula 3.0 32 97.3 07/19/17 09:01 86 106/75 07/19/17 09:00 106/75 07/19/17 08:10 Nasal Cannula 07/19/17 08:10 95 Nasal Cannula 1.0 24 07/19/17 08:10 24 07/19/17 08:10 86 21 95 Nasal Cannula 1.0 24 07/19/17 08:10 Room Air 1.0 24 07/19/17 08:00 92 07/19/17 08:00 97.3 94 20 106/75 92 Nasal Cannula 3.0 32 97.3 07/19/17 04:00 79 07/19/17 04:00 97.2 72 20 83/47 96 Nasal Cannula 3.0 32 97.2 07/19/17 01:21 85 21 96 3.0 32 07/19/17 01:17 85 21 96 Facial 28 07/19/17 01:12 85 21 94 Nasal Cannula 3.0 32 07/19/17 01:12 32 07/19/17 00:00 85 07/19/17 00:00 97.3 87 21 96/67 97 Nasal Cannula 3.0 32 97.3 07/18/17 22:05 94 Intake and Output 07/18/17 07/19/17 19:00 07:00 Intake Total 800 ml Output Total 3500 ml 2600 ml Balance -2700 ml -2600 ml Intake Oral 800 ml Output Urine Total 3500 ml 2600 ml Laboratory Tests 07/19/17 07:05: Prothrombin Time 17.9H, Prothromb Time International Ratio 1.7H Height (Feet): 5 Height (Inches): 10.00 Weight (Pounds): 347 Abdomen: soft Ronny Nina MD July 19, 2017 21:49
[2017-07-19] MEDS: Atorvastatin 20mg tab ORAL SCH (21:56)
[2017-07-20] VITALS: BP 83/53
[2017-07-20] MEDS: Albuterol/Ipratropium 3ml neb HHN SCH ×4 (01:14→19:00)
[2017-07-20 04:00] VITALS: BP 95/55
[2017-07-20 06:26] LABS: BASOPHILS % (AUTO) 0.9 % (0.0-2.0); EOSINOPHILS % (AUTO) 2.2 % (0.0-3.0); HEMATOCRIT 47.1 % (42.0-52.0); HEMOGLOBIN 15.4 G/DL (14.2-18.0); LYMPHOCYTES % (AUTO) 13.4 % (20.0-45.0); MEAN CORPUSCULAR VOLUME 86 FL (80-99); MONOCYTES % (AUTO) 8.6 % (1.0-10.0); NEUTROPHILS % (AUTO) 74.9 % (45.0-75.0); PLATELET COUNT 260 K/UL (150-450); RED BLOOD COUNT 5.45 M/UL (4.70-6.10); RED CELL DISTRIBUTION WIDTH 15.6 % (11.6-14.8); WHITE BLOOD COUNT 8.1 K/UL (4.8-10.8)
[2017-07-20 06:59] LABS: ALANINE AMINOTRANSFERASE 29 U/L (12-78); ALBUMIN 3.1 G/DL (3.4-5.0); ALBUMIN/GLOBULIN RATIO 0.7 (1.0-2.7); ALKALINE PHOSPHATASE 93 U/L (46-116); ANION GAP 8 mmol/L (5-15); ASPARTATE AMINO TRANSFERASE 25 U/L (15-37); BILIRUBIN,TOTAL 1.8 MG/DL (0.2-1.0); BLOOD UREA NITROGEN 29 mg/dL (7-18); CALCIUM 10.1 MG/DL (8.5-10.1); CARBON DIOXIDE 37 MMOL/L (21-32); CHLORIDE 95 MMOL/L (98-107); CREATININE 1.3 MG/DL (0.55-1.30); PHOSPHORUS 4.8 MG/DL (2.5-4.9); POTASSIUM 3.1 MMOL/L (3.5-5.1); SODIUM 140 MMOL/L (136-145)
[2017-07-20] MEDS: NovoLOG Insulin Flexpen SUBQ SCH ×4 (07:02→22:48)
[2017-07-20 07:03] LABS: BILIRUBIN,DIRECT 0.8 MG/DL (0.0-0.3)
[2017-07-20 08:00] VITALS: BP 97/68
[2017-07-20 08:18] LABS: INR 1.7 (0.9-1.1)
[2017-07-20] MEDS: Carvedilol 25mg Tab ORAL SCH ×2 (09:00→21:00)
--- NOTE | 2017-07-20 09:46 | Infectious Diseases Prog Note ---
Assessment/Plan Assessment/Plan A; Cellulitis of groin Atelectasis/ Pneumonia Systolic CHF, EF=10-20% DM Morbid obesity MARSHA Elevation of bilirubin P; Continue Doxycycline & Levaquin X 1 day Continue Clotrimazole Subjective ROS Limited/Unobtainable: No Respiratory: Reports: shortness of breath, other - decreased Cardiovascular: Reports: no symptoms Gastrointestinal/Abdominal: Reports: no symptoms Genitourinary: Reports: no symptoms Allergies: Coded Allergies: No Known Allergies (Unverified , 07/13/17) Objective Vital Signs Last 24 Hour Vital Signs Date Time Temp Pulse Resp B/P (MAP) Pulse Ox O2 Delivery O2 Flow Rate FiO2 07/20/17 07:18 76 18 97 Nasal Cannula 2.0 32 07/20/17 07:13 Room Air 21 07/20/17 07:13 96 Room Air 21 07/20/17 07:12 73 18 96 Room Air 21 07/20/17 04:00 97.0 81 20 95/55 91 Nasal Cannula 2.0 24 97.0 07/20/17 04:00 77 07/20/17 01:24 82 18 96 Nasal Cannula 3.0 32 07/20/17 01:16 82 18 93 Nasal Cannula 3.0 32 07/20/17 00:00 84 07/20/17 00:00 97.0 90 20 83/53 100 Nasal Cannula 2.0 24 97.0 07/19/17 21:00 97.2 85 20 94/61 96 Nasal Cannula 2.0 24 97.2 07/19/17 21:00 83 94/61 07/19/17 20:07 83 20 96 Nasal Cannula 2.0 24 07/19/17 20:00 97.2 85 20 94/61 92 Nasal Cannula 3.0 32 97.2 07/19/17 20:00 81 07/19/17 19:58 81 18 93 Room Air 21 07/19/17 19:58 93 Nasal Cannula 21 07/19/17 19:58 Room Air 21 07/19/17 16:00 97.2 76 20 98/53 97 Nasal Cannula 3.0 32 97.2 07/19/17 16:00 73 07/19/17 13:11 82 18 98 2.0 24 07/19/17 13:02 83 21 98 Nasal Cannula 1.0 24 5/21/18 13:02 24 07/19/17 12:00 77 07/19/17 12:00 97.3 78 19 109/54 97 Nasal Cannula 3.0 32 97.3 Height (Feet): 5 Height (Inches): 10.00 Weight (Pounds): 330 General Appearance: no acute distress HEENT: mucous membranes moist Respiratory/Chest: lungs clear Cardiovascular: normal rate Abdomen: soft, non tender Extremities: other - edema of legs Skin: rash, other - in groin & perineal area Neurologic/Psychiatric: alert, oriented x 3, responsive Laboratory Tests Test 07/20/17 05:00 White Blood Count 8.1 K/UL (4.8-10.8) Red Blood Count 5.45 M/UL (4.70-6.10) Hemoglobin 15.4 G/DL (14.2-18.0) Hematocrit 47.1 % (42.0-52.0) Mean Corpuscular Volume 86 FL (80-99) Mean Corpuscular Hemoglobin 28.2 PG (27.0-31.0) Mean Corpuscular Hemoglobin Concent 32.6 G/DL (32.0-36.0) Red Cell Distribution Width 15.6 % (11.6-14.8) H Platelet Count 260 K/UL (150-450) Mean Platelet Volume 6.3 FL (6.5-10.1) L Neutrophils (%) (Auto) 74.9 % (45.0-75.0) Lymphocytes (%) (Auto) 13.4 % (20.0-45.0) L Monocytes (%) (Auto) 8.6 % (1.0-10.0) Eosinophils (%) (Auto) 2.2 % (0.0-3.0) Basophils (%) (Auto) 0.9 % (0.0-2.0) Prothrombin Time 16.9 SEC (9.30-11.50) H Prothromb Time International Ratio 1.7 (0.9-1.1) H Sodium Level 140 MMOL/L (136-145) Potassium Level 3.1 MMOL/L (3.5-5.1) L Chloride Level 95 MMOL/L (98-107) L Carbon Dioxide Level 37 MMOL/L (21-32) H Anion Gap 8 mmol/L (5-15) Blood Urea Nitrogen 29 mg/dL (7-18) H Creatinine 1.3 MG/DL (0.55-1.30) Estimat Glomerular Filtration Rate 59.2 mL/min (>60) Glucose Level 110 MG/DL (74-106) H Calcium Level 10.1 MG/DL (8.5-10.1) Phosphorus Level 4.8 MG/DL (2.5-4.9) Magnesium Level 1.9 MG/DL (1.8-2.4) Total Bilirubin 1.8 MG/DL (0.2-1.0) H Direct Bilirubin 0.8 MG/DL (0.0-0.3) H Aspartate Amino Transf (AST/SGOT) 25 U/L (15-37) Alanine Aminotransferase (ALT/SGPT) 29 U/L (12-78) Alkaline Phosphatase 93 U/L (46-116) C-Reactive Protein, Quantitative 2.3 mg/dL (0.00-0.90) H Pro-B-Type Natriuretic Peptide 2226 pg/mL (0-125) H Total Protein 7.3 G/DL (6.4-8.2) Albumin 3.1 G/DL (3.4-5.0) L Globulin 4.2 g/dL Albumin/Globulin Ratio 0.7 (1.0-2.7) L Current Medications Medications (Trade) Dose Ordered Sig/Dago Route PRN Reason Start Time Stop Time Status Last Admin Dose Admin Acetaminophen (Tylenol) 650 mg Q4H PRN ORAL Mild Pain/Temp > 100.5 07/13/17 16:30 08/12/17 16:29 07/18/17 21:25 Albuterol/ Ipratropium (Albuterol/ Ipratropium) 3 ml Q4H PRN HHN Shortness of Breath 07/18/17 08:30 07/23/17 08:29 Albuterol/ Ipratropium (Albuterol/ Ipratropium) 3 ml Q6HRT HHN 07/19/17 01:00 07/24/17 00:59 07/20/17 07:10 Allopurinol (Allopurinol) 300 mg DAILY ORAL 07/14/17 09:00 08/13/17 08:59 07/19/17 09:00 Aspirin (ASA) 81 mg DAILY ORAL 07/16/17 09:00 08/13/17 08:59 07/19/17 09:00 Atorvastatin Calcium (Lipitor) 20 mg BEDTIME ORAL 07/13/17 21:00 08/12/17 20:59 07/19/17 21:56 Carvedilol (Coreg) 25 mg EVERY 12 HOURS ORAL 07/14/17 21:00 08/13/17 20:59 07/19/17 09:01 Clotrimazole (Lotrimin) 1 applic THREE TIMES A DAY TOPIC 07/16/17 13:00 08/15/17 12:59 07/19/17 17:53 Dextrose (Dextrose 50%) 25 ml STAT PRN IV Hypoglycemia 07/13/17 15:45 08/12/17 15:44 Doxycycline Monohydrate (Vibramycin) 100 mg EVERY 12 HOURS ORAL 07/16/17 21:00 07/23/17 20:59 07/19/17 21:56 Furosemide (Lasix) 80 mg Q12HR IV 07/13/17 23:37 08/12/17 23:36 07/19/17 21:56 Insulin Aspart (NovoLOG) BEFORE MEALS AND HS SUBQ 07/13/17 17:30 08/12/17 17:29 07/20/17 07:02 Levofloxacin (Levaquin) 750 mg Q24H ORAL 07/14/17 13:00 07/21/17 12:59 07/19/17 13:39 Lisinopril (Zestril) 5 mg DAILY ORAL 07/16/17 09:00 08/15/17 08:59 07/19/17 09:00 Metolazone (Zaroxolyn) 5 mg DAILY ORAL 07/15/17 20:00 08/14/17 19:59 07/19/17 09:00 Potassium Chloride (K-Dur) 40 meq BID ORAL 07/19/17 18:00 08/16/17 12:59 07/19/17 17:52 Warfarin Sodium (Coumadin per pharmacy) 1 ea DAILY PRN MISC Per rx protocol 07/13/17 18:45 08/12/17 18:44 PÉREZ ARORA July 20, 2017 09:46
--- NOTE | 2017-07-20 09:52 | Pulmonology Progress Note ---
Assessment/Plan Assessment/Plan ASSESSMENT: * Acute hypoxemic RF 2/2 CHF with ADHF and underlying MARSHA * CHF (LVEF 15%) with AHDF * Elevated cardiac biomarkers, likely demand ischemia * Morbid obesity * OSH/OHV, non-compliant with CPAP * Abnormal LFT's * H/O PE on A/C * Groin cellulitis * DM, HTN, HL PLAN: * Optimize pulmonary hygiene/mobilize as tolerated * Titrate down FiO2 to keep SaO2 > 90% * BiPAP 12/5 qHS and PRN - ENCOURAGE COMPLIANCE * RTC and PRN HHN's * Continue Lasix & Metolazone as tolerated * Monitor volumes and renal function * F/U cardiology recs * COUMADIN per Rx * Abx per ID - TO FINISH TODAY * Aspiration precautions * DVT Px: A/C * FC * D/W SW, will work on OP care, should be at a CM clinic, needs a PSG and CPAP titration, needs good F/U Larry Daniels MD, [facility] Subjective Allergies: Coded Allergies: No Known Allergies (Unverified , 07/13/17) Subjective AFVSS, stable O2 needs, -2.9L Refused BiPAP ON - UNDERSTANDS RISKS Less SOB, no cough, less orthopnea, no PND, less CHRISTA, no NVDC, feels better overall Objective Last 24 Hour Vital Signs Date Time Temp Pulse Resp B/P (MAP) Pulse Ox O2 Delivery O2 Flow Rate FiO2 07/20/17 07:18 76 18 97 Nasal Cannula 2.0 32 07/20/17 07:13 Room Air 21 07/20/17 07:13 96 Room Air 21 07/20/17 07:12 73 18 96 Room Air 21 07/20/17 04:00 97.0 81 20 95/55 91 Nasal Cannula 2.0 24 97.0 07/20/17 04:00 77 07/20/17 01:24 82 18 96 Nasal Cannula 3.0 32 07/20/17 01:16 82 18 93 Nasal Cannula 3.0 32 07/20/17 00:00 84 07/20/17 00:00 97.0 90 20 83/53 100 Nasal Cannula 2.0 24 97.0 07/19/17 21:00 97.2 85 20 94/61 96 Nasal Cannula 2.0 24 97.2 07/19/17 21:00 83 94/61 07/19/17 20:07 83 20 96 Nasal Cannula 2.0 24 07/19/17 20:00 97.2 85 20 94/61 92 Nasal Cannula 3.0 32 97.2 07/19/17 20:00 81 07/19/17 19:58 81 18 93 Room Air 21 07/19/17 19:58 93 Nasal Cannula 21 07/19/17 19:58 Room Air 21 07/19/17 16:00 97.2 76 20 98/53 97 Nasal Cannula 3.0 32 97.2 07/19/17 16:00 73 07/19/17 13:11 82 18 98 2.0 24 07/19/17 13:02 83 21 98 Nasal Cannula 1.0 24 07/19/17 13:02 24 07/19/17 12:00 77 07/19/17 12:00 97.3 78 19 109/54 97 Nasal Cannula 3.0 32 97.3 Intake and Output 07/19/17 07/20/17 19:00 07:00 Intake Total 540 ml Output Total 2100 ml 1400 ml Balance -1560 ml -1400 ml Intake Oral 540 ml Output Urine Total 2100 ml 1400 ml General Appearance: no acute distress, other - morbidly obese mnale HEENT: normocephalic, atraumatic, anicteric, mucous membranes moist Respiratory/Chest: chest wall non-tender, lungs clear - but distnatn, normal breath sounds, no respiratory distress Cardiovascular: normal peripheral pulses, normal rate, regular rhythm Abdomen: normal bowel sounds, soft, non tender, no organomegaly, non distended Skin: no rash, no lesions, other - 1+ CHRISTA Laboratory Tests 07/20/17 05:00: White Blood Count 8.1, Red Blood Count 5.45, Hemoglobin 15.4, Hematocrit 47.1, Mean Corpuscular Volume 86, Mean Corpuscular Hemoglobin 28.2, Mean Corpuscular Hemoglobin Concent 32.6, Red Cell Distribution Width 15.6H, Platelet Count 260, Mean Platelet Volume 6.3L, Neutrophils (%) (Auto) 74.9, Lymphocytes (%) (Auto) 13.4L, Monocytes (%) (Auto) 8.6, Eosinophils (%) (Auto) 2.2, Basophils (%) (Auto ) 0.9, Prothrombin Time 16.9H, Prothromb Time International Ratio 1.7H, Sodium Level 140, Potassium Level 3.1L, Chloride Level 95L, Carbon Dioxide Level 37H, Anion Gap 8, Blood Urea Nitrogen 29H, Creatinine 1.3, Estimat Glomerular Filtration Rate 59.2, Glucose Level 110H, Calcium Level 10.1, Phosphorus Level 4.8, Magnesium Level 1.9, Total Bilirubin 1.8H, Direct Bilirubin 0.8H, Aspartate Amino Transf (AST/SGOT) 25, Alanine Aminotransferase (ALT/SGPT) 29, Alkaline Phosphatase 93, C-Reactive Protein, Quantitative 2.3H, Pro-B-Type Natriuretic Peptide 2226H, Total Protein 7.3, Albumin 3.1L, Globulin 4.2, Albumin/Globulin Ratio 0.7L Current Medications Medications (Trade) Dose Ordered Sig/Dago Route PRN Reason Start Time Stop Time Status Last Admin Dose Admin Acetaminophen (Tylenol) 650 mg Q4H PRN ORAL Mild Pain/Temp > 100.5 07/13/17 16:30 08/12/17 16:29 07/18/17 21:25 Albuterol/ Ipratropium (Albuterol/ Ipratropium) 3 ml Q4H PRN HHN Shortness of Breath 07/18/17 08:30 07/23/17 08:29 Albuterol/ Ipratropium (Albuterol/ Ipratropium) 3 ml Q6HRT HHN 07/19/17 01:00 07/24/17 00:59 07/20/17 07:10 Allopurinol (Allopurinol) 300 mg DAILY ORAL 07/14/17 09:00 08/13/17 08:59 07/19/17 09:00 Aspirin (ASA) 81 mg DAILY ORAL 07/16/17 09:00 08/13/17 08:59 07/19/17 09:00 Atorvastatin Calcium (Lipitor) 20 mg BEDTIME ORAL 07/13/17 21:00 08/12/17 20:59 07/19/17 21:56 Carvedilol (Coreg) 25 mg EVERY 12 HOURS ORAL 07/14/17 21:00 08/13/17 20:59 07/19/17 09:01 Clotrimazole (Lotrimin) 1 applic THREE TIMES A DAY [facility] 07/16/17 13:00 08/15/17 12:59 07/19/17 17:53 Dextrose (Dextrose 50%) 25 ml STAT PRN IV Hypoglycemia 07/13/17 15:45 08/12/17 15:44 Doxycycline Monohydrate (Vibramycin) 100 mg EVERY 12 HOURS ORAL 07/16/17 21:00 07/23/17 20:59 07/19/17 21:56 Furosemide (Lasix) 80 mg Q12HR IV 07/13/17 23:37 08/12/17 23:36 07/19/17 21:56 Insulin Aspart (NovoLOG) BEFORE MEALS AND HS SUBQ 07/13/17 17:30 08/12/17 17:29 07/20/17 07:02 Levofloxacin (Levaquin) 750 mg Q24H ORAL 07/14/17 13:00 07/21/17 12:59 07/19/17 13:39 Lisinopril (Zestril) 5 mg DAILY ORAL 07/16/17 09:00 08/15/17 08:59 07/19/17 09:00 Metolazone (Zaroxolyn) 5 mg DAILY ORAL 07/15/17 20:00 08/14/17 19:59 07/19/17 09:00 Potassium Chloride (K-Dur) 40 meq BID ORAL 07/19/17 18:00 08/16/17 12:59 07/19/17 17:52 Warfarin Sodium (Coumadin per pharmacy) 1 ea DAILY PRN MISC Per rx protocol 07/13/17 18:45 08/12/17 18:44 LARRY DANIELS M.D. July 20, 2017 09:52
[2017-07-20] MEDS: Lisinopril 2.5mg tab ORAL SCH (09:55)
[2017-07-20] MEDS: Aspirin Baby 81mg ORAL SCH (09:56)
[2017-07-20 12:00] VITALS: BP 124/77
--- NOTE | 2017-07-20 13:49 | Nephrology Progress Note ---
Assessment/Plan Problem List: (1) CHF (congestive heart failure) (2) Cardiomyopathy (3) Diabetic nephropathy (4) Respiratory failure Assessment Acute hypoxemic RF 2/2 CHF with ADHF and underlying MARSHA * CHF (LVEF 15%) with AHDF Left ventricular ejection fraction estimated to be 15-20 %. * Elevated cardiac biomarkers, likely demand ischemia * Morbid obesity * OSH/OHV, non-compliant with CPAP * Abnormal LFT's * H/O PE on A/C * Groin cellulitis * DM, and proteinuria * HTN, HL * UTI * low K Plan KCL PO spp. Optimize cardiac status Monitor lytes and renal parameters antibiotics Subjective ROS Limited/Unobtainable: No Constitutional: Reports: malaise Objective Objective Last 24 Hour Vital Signs Date Time Temp Pulse Resp B/P (MAP) Pulse Ox O2 Delivery O2 Flow Rate FiO2 07/20/17 13:10 79 20 97 Room Air 21 07/20/17 13:03 77 20 95 Room Air 21 07/20/17 09:55 96/41 07/20/17 09:00 84 96/58 07/20/17 08:00 96 07/20/17 08:00 97.0 84 18 97/68 94 Room Air 97.0 07/20/17 07:18 76 18 97 Nasal Cannula 2.0 32 07/20/17 07:13 Room Air 21 07/20/17 07:13 96 Room Air 21 07/20/17 07:12 73 18 96 Room Air 21 07/20/17 04:00 97.0 81 20 95/55 91 Nasal Cannula 2.0 24 97.0 07/20/17 04:00 77 07/20/17 01:24 82 18 96 Nasal Cannula 3.0 32 07/20/17 01:16 82 18 93 Nasal Cannula 3.0 32 07/20/17 00:00 84 07/20/17 00:00 97.0 90 20 83/53 100 Nasal Cannula 2.0 24 97.0 07/19/17 21:00 97.2 85 20 94/61 96 Nasal Cannula 2.0 24 97.2 07/19/17 21:00 83 94/61 07/19/17 20:07 83 20 96 Nasal Cannula 2.0 24 07/19/17 20:00 97.2 85 20 94/61 92 Nasal Cannula 3.0 32 97.2 07/19/17 20:00 81 07/19/17 19:58 81 18 93 Room Air 21 07/19/17 19:58 93 Nasal Cannula 21 07/19/17 19:58 Room Air 21 07/19/17 16:00 97.2 76 20 98/53 97 Nasal Cannula 3.0 32 97.2 07/19/17 16:00 73 Intake and Output 07/19/17 07/20/17 19:00 07:00 Intake Total 540 ml Output Total 2100 ml 1400 ml Balance -1560 ml -1400 ml Intake Oral 540 ml Output Urine Total 2100 ml 1400 ml Laboratory Tests 07/20/17 05:00: White Blood Count 8.1, Red Blood Count 5.45, Hemoglobin 15.4, Hematocrit 47.1, Mean Corpuscular Volume 86, Mean Corpuscular Hemoglobin 28.2, Mean Corpuscular Hemoglobin Concent 32.6, Red Cell Distribution Width 15.6H, Platelet Count 260, Mean Platelet Volume 6.3L, Neutrophils (%) (Auto) 74.9, Lymphocytes (%) (Auto) 13.4L, Monocytes (%) (Auto) 8.6, Eosinophils (%) (Auto) 2.2, Basophils (%) (Auto ) 0.9, Prothrombin Time 16.9H, Prothromb Time International Ratio 1.7H, Sodium Level 140, Potassium Level 3.1L, Chloride Level 95L, Carbon Dioxide Level 37H, Anion Gap 8, Blood Urea Nitrogen 29H, Creatinine 1.3, Estimat Glomerular Filtration Rate 59.2, Glucose Level 110H, Calcium Level 10.1, Phosphorus Level 4.8, Magnesium Level 1.9, Total Bilirubin 1.8H, Direct Bilirubin 0.8H, Aspartate Amino Transf (AST/SGOT) 25, Alanine Aminotransferase (ALT/SGPT) 29, Alkaline Phosphatase 93, C-Reactive Protein, Quantitative 2.3H, Pro-B-Type Natriuretic Peptide 2226H, Total Protein 7.3, Albumin 3.1L, Globulin 4.2, Albumin/Globulin Ratio 0.7L Height (Feet): 5 Height (Inches): 10.00 Weight (Pounds): 330 General Appearance: no apparent distress Objective no change FLASH LEVI July 20, 2017 13:49
[2017-07-20 16:00] VITALS: BP 99/63
[2017-07-20] MEDS ORDERED: Warfarin Sodium 3mg ORAL SCH (17:00)
[2017-07-20 19:41] LABS: APPEARANCE,URINE CLOUDY; BILIRUBIN, URINE NEGATIVE (NEGATIVE); COLOR,URINE AMBER; GLUCOSE, URINE (UA) NEGATIVE (NEGATIVE); KETONES,URINE NEGATIVE (NEGATIVE); LEUKOCYTE ESTERASE ,URINE 2+ (NEGATIVE); NITRITE,URINE NEGATIVE (NEGATIVE); PH,URINE 8 (4.5-8.0); PROTEIN,URINE 2+ (NEGATIVE); UROBILINOGEN,URINE 1 MG/DL (0.0-1.0)
[2017-07-20 20:00] VITALS: BP 93/62
--- NOTE | 2017-07-20 22:13 | General Progress Note ---
Assessment/Plan Assessment/Plan Assessment - CM/CHF - EF 15-20% - abnormal LFT - ? passive congestion - ? fatty liver - ? KELLY/fibrosis Recommendations - follow LFT periodically - f/u hepatitis serologies --> negative - cardiology f/u - MRCP in am Subjective Allergies: Coded Allergies: No Known Allergies (Unverified , 07/13/17) Subjective Feels OK no abdominal pain labs noted breathing better Objective Last 24 Hour Vital Signs Date Time Temp Pulse Resp B/P (MAP) Pulse Ox O2 Delivery O2 Flow Rate FiO2 07/20/17 20:14 Room Air 07/20/17 20:12 Room Air 07/20/17 20:12 94 Room Air 21 07/20/17 20:12 Room Air 21 07/20/17 20:00 98.2 71 20 93/62 95 Room Air 98.2 07/20/17 16:00 97.2 76 20 99/63 95 Room Air 97.2 07/20/17 16:00 88 07/20/17 13:10 79 20 97 Room Air 21 07/20/17 13:03 77 20 95 Room Air 21 07/20/17 12:00 97.3 81 20 124/77 95 Room Air 97.3 07/20/17 12:00 84 07/20/17 09:55 96/41 07/20/17 09:00 84 96/58 07/20/17 08:00 96 07/20/17 08:00 97.0 84 18 97/68 94 Room Air 97.0 07/20/17 07:18 76 18 97 Nasal Cannula 2.0 32 07/20/17 07:13 Room Air 21 07/20/17 07:13 96 Room Air 21 07/20/17 07:12 73 18 96 Room Air 21 07/20/17 04:00 97.0 81 20 95/55 91 Nasal Cannula 2.0 24 97.0 07/20/17 04:00 77 07/20/17 01:24 82 18 96 Nasal Cannula 3.0 32 07/20/17 01:16 82 18 93 Nasal Cannula 3.0 32 07/20/17 00:00 84 07/20/17 00:00 97.0 90 20 83/53 100 Nasal Cannula 2.0 24 97.0 Intake and Output 07/19/17 07/20/17 19:00 07:00 Intake Total 540 ml Output Total 2100 ml 1400 ml Balance -1560 ml -1400 ml Intake Oral 540 ml Output Urine Total 2100 ml 1400 ml Laboratory Tests 07/20/17 05:00: White Blood Count 8.1, Red Blood Count 5.45, Hemoglobin 15.4, Hematocrit 47.1, Mean Corpuscular Volume 86, Mean Corpuscular Hemoglobin 28.2, Mean Corpuscular Hemoglobin Concent 32.6, Red Cell Distribution Width 15.6H, Platelet Count 260, Mean Platelet Volume 6.3L, Neutrophils (%) (Auto) 74.9, Lymphocytes (%) (Auto) 13.4L, Monocytes (%) (Auto) 8.6, Eosinophils (%) (Auto) 2.2, Basophils (%) (Auto ) 0.9, Prothrombin Time 16.9H, Prothromb Time International Ratio 1.7H, Sodium Level 140, Potassium Level 3.1L, Chloride Level 95L, Carbon Dioxide Level 37H, Anion Gap 8, Blood Urea Nitrogen 29H, Creatinine 1.3, Estimat Glomerular Filtration Rate 59.2, Glucose Level 110H, Calcium Level 10.1, Phosphorus Level 4.8, Magnesium Level 1.9, Total Bilirubin 1.8H, Direct Bilirubin 0.8H, Aspartate Amino Transf (AST/SGOT) 25, Alanine Aminotransferase (ALT/SGPT) 29, Alkaline Phosphatase 93, C-Reactive Protein, Quantitative 2.3H, Pro-B-Type Natriuretic Peptide 2226H, Total Protein 7.3, Albumin 3.1L, Globulin 4.2, Albumin/Globulin Ratio 0.7L 07/20/17 19:00: Urine Color Jyoti, Urine Appearance Cloudy, Urine pH 8, Urine Specific [place] 1.010, Urine Protein 2+H, Urine Glucose (UA) Negative, Urine Ketones Negative, Urine Occult Blood 5+H, Urine Nitrite Negative, Urine Bilirubin Negative, Urine Ictotest Negative, Urine Urobilinogen 1H, Urine Leukocyte Esterase 2+H, Urine RBC TntcH, Urine WBC 2-4, Urine Squamous Epithelial Cells None, Urine Bacteria Few Height (Feet): 5 Height (Inches): 10.00 Weight (Pounds): 330 Objective Obese WM NCAT supple CTA RRR Soft Obese NT (++) edema non focal Miki Constantino MD July 20, 2017 22:13
--- NOTE | 2017-07-20 22:40 | Cardiology Progress Note ---
Assessment/Plan Assessment/Plan 1. Acute on chronic systolic CHF, continue metolazone and lasix, creatinine at 1.3. Cannot optimize heart failure medications due to low BP. Continue carvedilol and lisinopril. 2. History of nonischemic cardiomyopathy. 3. Slight elevation of troponin I level could be due to myocarditis, doubt this is acute coronary syndrome given lack of chest pain. 4. History of pulmonary embolism. On warfarin, keep INR between 2 to 3. 5. Diabetes mellitus, uncontrolled. 6. MIKE, creat up to 1.3. 7. Dyslipidemia with low HDL. Subjective Subjective Sinus rhythm at 71. Objective Last 24 Hour Vital Signs Date Time Temp Pulse Resp B/P (MAP) Pulse Ox O2 Delivery O2 Flow Rate FiO2 07/20/17 20:14 Room Air 07/20/17 20:12 Room Air 07/20/17 20:12 94 Room Air 21 07/20/17 20:12 Room Air 21 07/20/17 20:00 98.2 71 20 93/62 95 Room Air 98.2 07/20/17 16:00 97.2 76 20 99/63 95 Room Air 97.2 07/20/17 16:00 88 07/20/17 13:10 79 20 97 Room Air 21 07/20/17 13:03 77 20 95 Room Air 21 07/20/17 12:00 97.3 81 20 124/77 95 Room Air 97.3 07/20/17 12:00 84 07/20/17 09:55 96/41 07/20/17 09:00 84 96/58 07/20/17 08:00 96 07/20/17 08:00 97.0 84 18 97/68 94 Room Air 97.0 07/20/17 07:18 76 18 97 Nasal Cannula 2.0 32 07/20/17 07:13 Room Air 21 07/20/17 07:13 96 Room Air 21 07/20/17 07:12 73 18 96 Room Air 21 07/20/17 04:00 97.0 81 20 95/55 91 Nasal Cannula 2.0 24 97.0 07/20/17 04:00 77 07/20/17 01:24 82 18 96 Nasal Cannula 3.0 32 07/20/17 01:16 82 18 93 Nasal Cannula 3.0 32 07/20/17 00:00 84 07/20/17 00:00 97.0 90 20 83/53 100 Nasal Cannula 2.0 24 97.0 Intake and Output 07/19/17 07/20/17 19:00 07:00 Intake Total 540 ml Output Total 2100 ml 1400 ml Balance -1560 ml -1400 ml Intake Oral 540 ml Output Urine Total 2100 ml 1400 ml 2D Echo: LVEF 15%, Mild LVH, LAE, Global LV HK, RVSP 63, Mod MR, Grade I LVDD Laboratory Tests Test 07/20/17 05:00 07/20/17 19:00 White Blood Count 8.1 K/UL (4.8-10.8) Red Blood Count 5.45 M/UL (4.70-6.10) Hemoglobin 15.4 G/DL (14.2-18.0) Hematocrit 47.1 % (42.0-52.0) Mean Corpuscular Volume 86 FL (80-99) Mean Corpuscular Hemoglobin 28.2 PG (27.0-31.0) Mean Corpuscular Hemoglobin Concent 32.6 G/DL (32.0-36.0) Red Cell Distribution Width 15.6 % (11.6-14.8) H Platelet Count 260 K/UL (150-450) Mean Platelet Volume 6.3 FL (6.5-10.1) L Neutrophils (%) (Auto) 74.9 % (45.0-75.0) Lymphocytes (%) (Auto) 13.4 % (20.0-45.0) L Monocytes (%) (Auto) 8.6 % (1.0-10.0) Eosinophils (%) (Auto) 2.2 % (0.0-3.0) Basophils (%) (Auto) 0.9 % (0.0-2.0) Prothrombin Time 16.9 SEC (9.30-11.50) H Prothromb Time International Ratio 1.7 (0.9-1.1) H Sodium Level 140 MMOL/L (136-145) Potassium Level 3.1 MMOL/L (3.5-5.1) L Chloride Level 95 MMOL/L (98-107) L Carbon Dioxide Level 37 MMOL/L (21-32) H Anion Gap 8 mmol/L (5-15) Blood Urea Nitrogen 29 mg/dL (7-18) H Creatinine 1.3 MG/DL (0.55-1.30) Estimat Glomerular Filtration Rate 59.2 mL/min (>60) Glucose Level 110 MG/DL (74-106) H Calcium Level 10.1 MG/DL (8.5-10.1) Phosphorus Level 4.8 MG/DL (2.5-4.9) Magnesium Level 1.9 MG/DL (1.8-2.4) Total Bilirubin 1.8 MG/DL (0.2-1.0) H Direct Bilirubin 0.8 MG/DL (0.0-0.3) H Aspartate Amino Transf (AST/SGOT) 25 U/L (15-37) Alanine Aminotransferase (ALT/SGPT) 29 U/L (12-78) Alkaline Phosphatase 93 U/L (46-116) C-Reactive Protein, Quantitative 2.3 mg/dL (0.00-0.90) H Pro-B-Type Natriuretic Peptide 2226 pg/mL (0-125) H Total Protein 7.3 G/DL (6.4-8.2) Albumin 3.1 G/DL (3.4-5.0) L Globulin 4.2 g/dL Albumin/Globulin Ratio 0.7 (1.0-2.7) L Urine Color Jyoti Urine Appearance Cloudy Urine pH 8 (4.5-8.0) Urine Specific [place] 1.010 (1.005-1.035) Urine Protein 2+ (NEGATIVE) H Urine Glucose (UA) Negative (NEGATIVE) Urine Ketones Negative (NEGATIVE) Urine Occult Blood 5+ (NEGATIVE) H Urine Nitrite Negative (NEGATIVE) Urine Bilirubin Negative (NEGATIVE) Urine Ictotest Negative Urine Urobilinogen 1 MG/DL (0.0-1.0) H Urine Leukocyte Esterase 2+ (NEGATIVE) H Urine RBC Tntc /HPF (0 - 0) H Urine WBC 2-4 /HPF (0 - 0) Urine Squamous Epithelial Cells None /LPF (NONE/OCC) Urine Bacteria Few /HPF (NONE) Objective HEENT: Atraumatic and normocephalic. Anicteric. Pupils are equal, round, and reactive to light and accommodation. Extraocular muscles intact. NECK: Hard to evaluate JVD. No carotid bruit. Carotid upstrokes 2+ bilaterally. CARDIOVASCULAR: Normal S1 and S2. PMI is at fourth intercostal space at the midclavicular line. LUNGS: Diminished breath sounds in both bases, some scattered crackles, and rhonchi. ABDOMEN: Distended. I do not appreciate any hepatosplenomegaly. Positive bowel sounds. EXTREMITIES: There is 3+ to 4+ bilateral lower extremity edema as well as scrotal edema. Sergio Dumas MD July 20, 2017 22:40
[2017-07-20] MEDS: Atorvastatin 20mg tab ORAL SCH (22:45)
--- NOTE | 2017-07-20 22:50 | General Progress Note ---
Assessment/Plan Problem List: (1) CHF (congestive heart failure) ICD Codes: I50.9 - Heart failure, unspecified SNOMED: [id number] Qualifiers: Qualified Codes: I50.9 - Heart failure, unspecified Status: progressing Assessment/Plan persistent low k edema is decreasing afebrile reviewed chart and labs chf exacerbation improving morbid obesity Subjective ROS Limited/Unobtainable: Yes Allergies: Coded Allergies: No Known Allergies (Unverified , 07/13/17) Objective Last 24 Hour Vital Signs Date Time Temp Pulse Resp B/P (MAP) Pulse Ox O2 Delivery O2 Flow Rate FiO2 07/20/17 20:14 Room Air 07/20/17 20:12 Room Air 07/20/17 20:12 94 Room Air 21 07/20/17 20:12 Room Air 21 07/20/17 20:00 98.2 71 20 93/62 95 Room Air 98.2 07/20/17 16:00 97.2 76 20 99/63 95 Room Air 97.2 07/20/17 16:00 88 07/20/17 13:10 79 20 97 Room Air 21 07/20/17 13:03 77 20 95 Room Air 21 07/20/17 12:00 97.3 81 20 124/77 95 Room Air 97.3 07/20/17 12:00 84 07/20/17 09:55 96/41 07/20/17 09:00 84 96/58 07/20/17 08:00 96 07/20/17 08:00 97.0 84 18 97/68 94 Room Air 97.0 07/20/17 07:18 76 18 97 Nasal Cannula 2.0 32 07/20/17 07:13 Room Air 21 07/20/17 07:13 96 Room Air 21 07/20/17 07:12 73 18 96 Room Air 21 07/20/17 04:00 97.0 81 20 95/55 91 Nasal Cannula 2.0 24 97.0 07/20/17 04:00 77 07/20/17 01:24 82 18 96 Nasal Cannula 3.0 32 07/20/17 01:16 82 18 93 Nasal Cannula 3.0 32 07/20/17 00:00 84 07/20/17 00:00 97.0 90 20 83/53 100 Nasal Cannula 2.0 24 97.0 Intake and Output 07/19/17 07/20/17 19:00 07:00 Intake Total 540 ml Output Total 2100 ml 1400 ml Balance -1560 ml -1400 ml Intake Oral 540 ml Output Urine Total 2100 ml 1400 ml Laboratory Tests 07/20/17 05:00: White Blood Count 8.1, Red Blood Count 5.45, Hemoglobin 15.4, Hematocrit 47.1, Mean Corpuscular Volume 86, Mean Corpuscular Hemoglobin 28.2, Mean Corpuscular Hemoglobin Concent 32.6, Red Cell Distribution Width 15.6H, Platelet Count 260, Mean Platelet Volume 6.3L, Neutrophils (%) (Auto) 74.9, Lymphocytes (%) (Auto) 13.4L, Monocytes (%) (Auto) 8.6, Eosinophils (%) (Auto) 2.2, Basophils (%) (Auto ) 0.9, Prothrombin Time 16.9H, Prothromb Time International Ratio 1.7H, Sodium Level 140, Potassium Level 3.1L, Chloride Level 95L, Carbon Dioxide Level 37H, Anion Gap 8, Blood Urea Nitrogen 29H, Creatinine 1.3, Estimat Glomerular Filtration Rate 59.2, Glucose Level 110H, Calcium Level 10.1, Phosphorus Level 4.8, Magnesium Level 1.9, Total Bilirubin 1.8H, Direct Bilirubin 0.8H, Aspartate Amino Transf (AST/SGOT) 25, Alanine Aminotransferase (ALT/SGPT) 29, Alkaline Phosphatase 93, C-Reactive Protein, Quantitative 2.3H, Pro-B-Type Natriuretic Peptide 2226H, Total Protein 7.3, Albumin 3.1L, Globulin 4.2, Albumin/Globulin Ratio 0.7L 07/20/17 19:00: Urine Color Jyoti, Urine Appearance Cloudy, Urine pH 8, Urine Specific [place] 1.010, Urine Protein 2+H, Urine Glucose (UA) Negative, Urine Ketones Negative, Urine Occult Blood 5+H, Urine Nitrite Negative, Urine Bilirubin Negative, Urine Ictotest Negative, Urine Urobilinogen 1H, Urine Leukocyte Esterase 2+H, Urine RBC TntcH, Urine WBC 2-4, Urine Squamous Epithelial Cells None, Urine Bacteria Few Height (Feet): 5 Height (Inches): 10.00 Weight (Pounds): 330 Ronny Nina MD July 20, 2017 22:50
[2017-07-21] VITALS: BP 113/63
[2017-07-21] MEDS: Albuterol/Ipratropium 3ml neb HHN SCH ×4 (01:00→19:43)
[2017-07-21 04:00] VITALS: BP 118/68
[2017-07-21] MEDS: NovoLOG Insulin Flexpen SUBQ SCH ×4 (07:09→20:44)
[2017-07-21 08:00] VITALS: BP 115/76
[2017-07-21 08:33] LABS: INR 1.8 (0.9-1.1)
[2017-07-21] MEDS: Aspirin Baby 81mg ORAL SCH (09:01)
[2017-07-21] MEDS: Lisinopril 2.5mg tab ORAL SCH (09:02)
[2017-07-21] MEDS: Carvedilol 25mg Tab ORAL SCH ×2 (09:02→20:43)
--- NOTE | 2017-07-21 09:58 | Pulmonology Progress Note ---
Assessment/Plan Assessment/Plan ASSESSMENT: * Acute hypoxemic RF 2/2 CHF with ADHF and underlying MARSHA * CHF (LVEF 15%) with AHDF * Elevated cardiac biomarkers, likely demand ischemia * Morbid obesity * OSH/OHV, non-compliant with CPAP * Abnormal LFT's * H/O PE on A/C * Groin cellulitis * DM, HTN, HL PLAN: * Optimize pulmonary hygiene/mobilize as tolerated * Titrate down FiO2 to keep SaO2 > 90% * BiPAP 12/5 qHS and PRN - ENCOURAGE COMPLIANCE * RTC and PRN HHN's * Continue Lasix & Metolazone as tolerated * Monitor volumes and renal function * F/U cardiology recs * COUMADIN per Rx * Observe off Abx per ID * Aspiration precautions * DVT Px: A/C * FC * D/W SW, will work on OP care, should be at a CM clinic, needs a PSG and CPAP titration, needs good F/U Larry Daniels MD, [facility] Critical Care Medicine Subjective Allergies: Coded Allergies: No Known Allergies (Unverified , 07/13/17) Subjective AFVSS, stable O2 needs, -2.9L Refused BiPAP ON - UNDERSTANDS RISKS Less SOB, no cough, less orthopnea, no PND, less CHRISTA, no NVDC, feels better overall Objective Last 24 Hour Vital Signs Date Time Temp Pulse Resp B/P (MAP) Pulse Ox O2 Delivery O2 Flow Rate FiO2 07/21/17 09:02 115/76 07/21/17 09:02 93 115/76 07/21/17 08:06 88 20 96 Room Air 21 07/21/17 08:00 Room Air 07/21/17 08:00 97.0 93 18 115/76 93 Room Air 2.0 21 97.0 07/21/17 08:00 93 Room Air 21 07/21/17 08:00 95 18 93 Room Air 21 07/21/17 04:00 97.0 81 20 118/68 98 Room Air 97.0 07/21/17 04:00 83 07/21/17 01:42 Room Air 07/21/17 01:41 Room Air 07/21/17 00:00 88 07/21/17 00:00 97.0 89 20 113/63 95 Room Air 97.0 07/20/17 21:00 71 93/62 07/20/17 20:14 Room Air 07/20/17 20:12 Room Air 07/20/17 20:12 94 Room Air 21 07/20/17 20:12 Room Air 21 07/20/17 20:00 98.2 71 20 93/62 95 Room Air 98.2 07/20/17 20:00 86 07/20/17 16:00 97.2 76 20 99/63 95 Room Air 97.2 07/20/17 16:00 88 07/20/17 13:10 79 20 97 Room Air 21 07/20/17 13:03 77 20 95 Room Air 21 07/20/17 12:00 97.3 81 20 124/77 95 Room Air 97.3 07/20/17 12:00 84 Intake and Output 07/20/17 07/21/17 19:00 07:00 Intake Total 950 ml Output Total 2400 ml 1500 ml Balance -1450 ml -1500 ml Other 950 ml Output Urine Total 2400 ml 1500 ml General Appearance: no acute distress, other - obese HEENT: normocephalic, atraumatic, anicteric, mucous membranes moist Respiratory/Chest: chest wall non-tender, lungs clear, normal breath sounds, no respiratory distress, no accessory muscle use Cardiovascular: normal peripheral pulses, normal rate, regular rhythm Abdomen: normal bowel sounds, soft, non tender, no organomegaly, non distended , no mass Extremities: no cyanosis, no clubbing, no edema Microbiology Date/Time Source Procedure Growth Status 07/20/17 19:00 Indwelling Cath Urine Culture - Preliminary NO GROWTH Resulted Laboratory Tests 07/20/17 19:00: Urine Color Jyoti, Urine Appearance Cloudy, Urine pH 8, Urine Specific [place] 1.010, Urine Protein 2+H, Urine Glucose (UA) Negative, Urine Ketones Negative, Urine Occult Blood 5+H, Urine Nitrite Negative, Urine Bilirubin Negative, Urine Ictotest Negative, Urine Urobilinogen 1H, Urine Leukocyte Esterase 2+H, Urine RBC TntcH, Urine WBC 2-4, Urine Squamous Epithelial Cells None, Urine Bacteria Few 07/21/17 07:00: Prothrombin Time 18.6H, Prothromb Time International Ratio 1.8H, C-Reactive Protein, Quantitative 1.0H Current Medications Medications (Trade) Dose Ordered Sig/Dago Route PRN Reason Start Time Stop Time Status Last Admin Dose Admin Acetaminophen (Tylenol) 650 mg Q4H PRN ORAL Mild Pain/Temp > 100.5 07/13/17 16:30 08/12/17 16:29 07/18/17 21:25 Albuterol/ Ipratropium (Albuterol/ Ipratropium) 3 ml Q4H PRN HHN Shortness of Breath 07/18/17 08:30 07/23/17 08:29 Albuterol/ Ipratropium (Albuterol/ Ipratropium) 3 ml Q6HRT HHN 07/19/17 01:00 07/24/17 00:59 07/21/17 07:59 Allopurinol (Allopurinol) 300 mg DAILY ORAL 07/14/17 09:00 08/13/17 08:59 07/21/17 09:01 Aspirin (ASA) 81 mg DAILY ORAL 07/16/17 09:00 08/13/17 08:59 07/21/17 09:01 Atorvastatin Calcium (Lipitor) 20 mg BEDTIME ORAL 07/13/17 21:00 08/12/17 20:59 07/20/17 22:45 Carvedilol (Coreg) 25 mg EVERY 12 HOURS ORAL 07/14/17 21:00 08/13/17 20:59 07/21/17 09:02 Clotrimazole (Lotrimin) 1 applic THREE TIMES A DAY TOPIC 07/16/17 13:00 08/15/17 12:59 07/21/17 09:02 Dextrose (Dextrose 50%) 25 ml STAT PRN IV Hypoglycemia 07/13/17 15:45 08/12/17 15:44 Doxycycline Monohydrate (Vibramycin) 100 mg EVERY 12 HOURS ORAL 07/16/17 21:00 07/23/17 20:59 07/21/17 09:00 Furosemide (Lasix) 80 mg Q12HR IV 07/13/17 23:37 08/12/17 23:36 07/21/17 09:16 Insulin Aspart (NovoLOG) BEFORE MEALS AND HS SUBQ 07/13/17 17:30 08/12/17 17:29 07/21/17 07:09 Levofloxacin (Levaquin) 750 mg Q24H ORAL 07/14/17 13:00 07/21/17 13:30 07/20/17 13:15 Lisinopril (Zestril) 5 mg DAILY ORAL 07/16/17 09:00 08/15/17 08:59 07/21/17 09:02 Metolazone (Zaroxolyn) 5 mg DAILY ORAL 07/15/17 20:00 08/14/17 19:59 07/21/17 09:01 Potassium Chloride (K-Dur) 40 meq TID ORAL 07/20/17 13:00 08/16/17 12:59 07/21/17 09:00 Warfarin Sodium (Coumadin per pharmacy) 1 ea DAILY PRN MISC Per rx protocol 07/13/17 18:45 08/12/17 18:44 Warfarin Sodium (Coumadin) 6 mg COUMADIN ONCE ORAL 07/21/17 17:00 07/21/17 17:01 LARRY DANIELS M.D. July 21, 2017 09:58
--- NOTE | 2017-07-21 10:30 | Nephrology Progress Note ---
Assessment/Plan Problem List: (1) CHF (congestive heart failure) (2) Cardiomyopathy (3) Diabetic nephropathy (4) Respiratory failure Assessment Acute hypoxemic RF 2/2 CHF with ADHF and underlying MARSHA * CHF (LVEF 15%) with AHDF Left ventricular ejection fraction estimated to be 15-20 %. * Elevated cardiac biomarkers, likely demand ischemia * Morbid obesity * OSH/OHV, non-compliant with CPAP * Abnormal LFT's * H/O PE on A/C * Groin cellulitis * DM, and proteinuria * HTN, HL * UTI * low K Plan DC Albert- change Lasix to PO KCL PO supp. Optimize cardiac status Monitor lytes and renal parameters antibiotics Subjective ROS Limited/Unobtainable: No Constitutional: Reports: malaise Objective Objective Last 24 Hour Vital Signs Date Time Temp Pulse Resp B/P (MAP) Pulse Ox O2 Delivery O2 Flow Rate FiO2 07/21/17 09:02 115/76 07/21/17 09:02 93 115/76 07/21/17 08:06 88 20 96 Room Air 21 07/21/17 08:00 Room Air 07/21/17 08:00 97.0 93 18 115/76 93 Room Air 2.0 21 97.0 07/21/17 08:00 90 07/21/17 08:00 93 Room Air 21 07/21/17 08:00 95 18 93 Room Air 21 07/21/17 04:00 97.0 81 20 118/68 98 Room Air 97.0 07/21/17 04:00 83 07/21/17 01:42 Room Air 07/21/17 01:41 Room Air 07/21/17 00:00 88 07/21/17 00:00 97.0 89 20 113/63 95 Room Air 97.0 07/20/17 21:00 71 93/62 07/20/17 20:14 Room Air 07/20/17 20:12 Room Air 07/20/17 20:12 94 Room Air 21 07/20/17 20:12 Room Air 21 07/20/17 20:00 98.2 71 20 93/62 95 Room Air 98.2 07/20/17 20:00 86 07/20/17 16:00 97.2 76 20 99/63 95 Room Air 97.2 07/20/17 16:00 88 07/20/17 13:10 79 20 97 Room Air 21 07/20/17 13:03 77 20 95 Room Air 21 07/20/17 12:00 97.3 81 20 124/77 95 Room Air 97.3 07/20/17 12:00 84 Intake and Output 07/20/17 07/21/17 19:00 07:00 Intake Total 950 ml Output Total 2400 ml 1500 ml Balance -1450 ml -1500 ml Other 950 ml Output Urine Total 2400 ml 1500 ml Laboratory Tests 07/20/17 19:00: Urine Color Jyoti, Urine Appearance Cloudy, Urine pH 8, Urine Specific [place] 1.010, Urine Protein 2+H, Urine Glucose (UA) Negative, Urine Ketones Negative, Urine Occult Blood 5+H, Urine Nitrite Negative, Urine Bilirubin Negative, Urine Ictotest Negative, Urine Urobilinogen 1H, Urine Leukocyte Esterase 2+H, Urine RBC TntcH, Urine WBC 2-4, Urine Squamous Epithelial Cells None, Urine Bacteria Few 07/21/17 07:00: Prothrombin Time 18.6H, Prothromb Time International Ratio 1.8H, C-Reactive Protein, Quantitative 1.0H Height (Feet): 5 Height (Inches): 10.00 Weight (Pounds): 321 General Appearance: no apparent distress Respiratory/Chest: decreased breath sounds Objective no change FLASH LEVI July 21, 2017 10:30
[2017-07-21 12:00] VITALS: BP 95/57
[2017-07-21 12:38] LABS: APPEARANCE,URINE CLEAR; BILIRUBIN, URINE NEGATIVE (NEGATIVE); COLOR,URINE PALE YELLOW; GLUCOSE, URINE (UA) NEGATIVE (NEGATIVE); KETONES,URINE NEGATIVE (NEGATIVE); LEUKOCYTE ESTERASE ,URINE 3+ (NEGATIVE); NITRITE,URINE NEGATIVE (NEGATIVE); PH,URINE 7 (4.5-8.0); PROTEIN,URINE 2+ (NEGATIVE); UROBILINOGEN,URINE NORMAL MG/DL (0.0-1.0)
--- NOTE | 2017-07-21 12:38 | Infectious Diseases Prog Note ---
Assessment/Plan Assessment/Plan A; Cellulitis of groin Atelectasis/ Pneumonia Systolic CHF, EF=10-20% DM Morbid obesity MARSHA Elevation of bilirubin P; discontinue Doxycycline Continue Clotrimazole Subjective ROS Limited/Unobtainable: No Constitutional: Reports: no symptoms Cardiovascular: Reports: no symptoms Gastrointestinal/Abdominal: Reports: no symptoms Genitourinary: Reports: no symptoms Allergies: Coded Allergies: No Known Allergies (Unverified , 07/13/17) Objective Vital Signs Last 24 Hour Vital Signs Date Time Temp Pulse Resp B/P (MAP) Pulse Ox O2 Delivery O2 Flow Rate FiO2 07/21/17 09:02 115/76 07/21/17 09:02 93 115/76 07/21/17 08:06 88 20 96 Room Air 21 07/21/17 08:00 Room Air 07/21/17 08:00 97.0 93 18 115/76 93 Room Air 2.0 21 97.0 07/21/17 08:00 90 07/21/17 08:00 93 Room Air 21 07/21/17 08:00 95 18 93 Room Air 21 07/21/17 04:00 97.0 81 20 118/68 98 Room Air 97.0 07/21/17 04:00 83 07/21/17 01:42 Room Air 07/21/17 01:41 Room Air 07/21/17 00:00 88 07/21/17 00:00 97.0 89 20 113/63 95 Room Air 97.0 07/20/17 21:00 71 93/62 07/20/17 20:14 Room Air 07/20/17 20:12 Room Air 07/20/17 20:12 94 Room Air 21 07/20/17 20:12 Room Air 21 07/20/17 20:00 98.2 71 20 93/62 95 Room Air 98.2 07/20/17 20:00 86 07/20/17 16:00 97.2 76 20 99/63 95 Room Air 97.2 07/20/17 16:00 88 07/20/17 13:10 79 20 97 Room Air 21 07/20/17 13:03 77 20 95 Room Air 21 Height (Feet): 5 Height (Inches): 10.00 Weight (Pounds): 321 General Appearance: no acute distress HEENT: mucous membranes moist Respiratory/Chest: lungs clear Cardiovascular: normal rate Abdomen: soft, non tender Extremities: other - decreased Skin: rash, other - pigmentation in groin area, improving Microbiology Date/Time Source Procedure Growth Status 07/20/17 19:00 Indwelling Cath Urine Culture - Preliminary NO GROWTH Resulted Laboratory Tests Test 07/20/17 19:00 07/21/17 07:00 07/21/17 11:50 Urine Color Jyoti Pending Urine Appearance Cloudy Pending Urine pH 8 (4.5-8.0) Pending Urine Specific [place] 1.010 (1.005-1.035) Pending Urine Protein 2+ (NEGATIVE) H Pending Urine Glucose (UA) Negative (NEGATIVE) Pending Urine Ketones Negative (NEGATIVE) Pending Urine Occult Blood 5+ (NEGATIVE) H Pending Urine Nitrite Negative (NEGATIVE) Pending Urine Bilirubin Negative (NEGATIVE) Pending Urine Ictotest Negative Urine Urobilinogen 1 MG/DL (0.0-1.0) H Pending Urine Leukocyte Esterase 2+ (NEGATIVE) H Pending Urine RBC Tntc /HPF (0 - 0) H Pending Urine WBC 2-4 /HPF (0 - 0) Pending Urine Squamous Epithelial Cells None /LPF (NONE/OCC) Pending Urine Bacteria Few /HPF (NONE) Pending Prothrombin Time 18.6 SEC (9.30-11.50) H Prothromb Time International Ratio 1.8 (0.9-1.1) H C-Reactive Protein, Quantitative 1.0 mg/dL (0.00-0.90) H Current Medications Medications (Trade) Dose Ordered Sig/Dago Route PRN Reason Start Time Stop Time Status Last Admin Dose Admin Acetaminophen (Tylenol) 650 mg Q4H PRN ORAL Mild Pain/Temp > 100.5 07/13/17 16:30 08/12/17 16:29 07/18/17 21:25 Albuterol/ Ipratropium (Albuterol/ Ipratropium) 3 ml Q4H PRN HHN Shortness of Breath 07/18/17 08:30 07/23/17 08:29 Albuterol/ Ipratropium (Albuterol/ Ipratropium) 3 ml Q6HRT HHN 07/19/17 01:00 07/24/17 00:59 07/21/17 07:59 Allopurinol (Allopurinol) 300 mg DAILY ORAL 07/14/17 09:00 08/13/17 08:59 07/21/17 09:01 Aspirin (ASA) 81 mg DAILY ORAL 07/16/17 09:00 08/13/17 08:59 07/21/17 09:01 Atorvastatin Calcium (Lipitor) 20 mg BEDTIME ORAL 07/13/17 21:00 08/12/17 20:59 07/20/17 22:45 Carvedilol (Coreg) 25 mg EVERY 12 HOURS ORAL 07/14/17 21:00 08/13/17 20:59 07/21/17 09:02 Clotrimazole (Lotrimin) 1 applic THREE TIMES A DAY TOPIC 07/16/17 13:00 08/15/17 12:59 07/21/17 09:02 Dextrose (Dextrose 50%) 25 ml STAT PRN IV Hypoglycemia 07/13/17 15:45 08/12/17 15:44 Doxycycline Monohydrate (Vibramycin) 100 mg EVERY 12 HOURS ORAL 07/16/17 21:00 07/23/17 20:59 07/21/17 09:00 Furosemide (Lasix) 80 mg DAILY ORAL 07/22/17 09:00 08/21/17 08:59 Insulin Aspart (NovoLOG) BEFORE MEALS AND HS SUBQ 07/13/17 17:30 08/12/17 17:29 07/21/17 11:19 Levofloxacin (Levaquin) 750 mg Q24H ORAL 07/14/17 13:00 07/21/17 13:30 07/20/17 13:15 Lisinopril (Zestril) 5 mg DAILY ORAL 07/16/17 09:00 08/15/17 08:59 07/21/17 09:02 Metolazone (Zaroxolyn) 5 mg DAILY ORAL 07/15/17 20:00 08/14/17 19:59 07/21/17 09:01 Potassium Chloride (K-Dur) 40 meq TID ORAL 07/20/17 13:00 08/16/17 12:59 07/21/17 09:00 Warfarin Sodium (Coumadin per pharmacy) 1 ea DAILY PRN MISC Per rx protocol 07/13/17 18:45 08/12/17 18:44 Warfarin Sodium (Coumadin) 6 mg COUMADIN ONCE ORAL 07/21/17 17:00 07/21/17 17:01 PÉREZ ARORA July 21, 2017 12:38
[2017-07-21 16:00] VITALS: BP 109/61
[2017-07-21 16:46] LABS: ANION GAP 5 mmol/L (5-15); BLOOD UREA NITROGEN 32 mg/dL (7-18); CALCIUM 9.7 MG/DL (8.5-10.1); CARBON DIOXIDE 34 MMOL/L (21-32); CHLORIDE 98 MMOL/L (98-107); CREATININE 1.6 MG/DL (0.55-1.30); POTASSIUM 3.5 MMOL/L (3.5-5.1); SODIUM 137 MMOL/L (136-145)
[2017-07-21 16:57] LABS: ALANINE AMINOTRANSFERASE 36 U/L (12-78); ALBUMIN 3.2 G/DL (3.4-5.0); ALBUMIN/GLOBULIN RATIO 0.8 (1.0-2.7); ALKALINE PHOSPHATASE 95 U/L (46-116); ASPARTATE AMINO TRANSFERASE 36 U/L (15-37); BILIRUBIN,TOTAL 1.5 MG/DL (0.2-1.0)
[2017-07-21 16:59] LABS: BILIRUBIN,DIRECT 0.7 MG/DL (0.0-0.3)
[2017-07-21] MEDS ORDERED: Warfarin Sodium 3mg ORAL ONE (17:00)
--- NOTE | 2017-07-21 18:43 | Cardiology Progress Note ---
Assessment/Plan Assessment/Plan 1. Acute on chronic systolic CHF, decrease both metolazone and lasix, creatinine at 1.6. He has lost approximately 18 Ibs. Cannot optimize heart failure medications due to low BP. Continue carvedilol, lisinopril and the diuretics. 2. History of nonischemic cardiomyopathy. 3. Slight elevation of troponin I level could be due to myocarditis, doubt this is acute coronary syndrome given lack of chest pain. 4. History of pulmonary embolism. On warfarin, keep INR between 2 to 3. 5. Diabetes mellitus, uncontrolled. 6. MIKE, creat up to 1.6. 7. Dyslipidemia with low HDL. Subjective Subjective Sinus rhythm at 82. Objective Last 24 Hour Vital Signs Date Time Temp Pulse Resp B/P (MAP) Pulse Ox O2 Delivery O2 Flow Rate FiO2 07/21/17 13:08 80 20 99 Nasal Cannula 2.0 28 07/21/17 13:07 78 18 93 Nasal Cannula 2.0 28 07/21/17 12:00 87 07/21/17 12:00 96.4 79 20 95/57 96 Room Air 2.0 21 96.4 07/21/17 09:02 115/76 07/21/17 09:02 93 115/76 07/21/17 08:06 88 20 96 Room Air 21 07/21/17 08:00 Nasal Cannula 2.0 28 07/21/17 08:00 97.0 93 18 115/76 93 Room Air 2.0 21 97.0 07/21/17 08:00 90 07/21/17 08:00 93 Room Air 21 07/21/17 08:00 95 18 93 Room Air 21 07/21/17 04:00 97.0 81 20 118/68 98 Room Air 97.0 07/21/17 04:00 83 07/21/17 01:42 Room Air 07/21/17 01:41 Room Air 07/21/17 00:00 88 07/21/17 00:00 97.0 89 20 113/63 95 Room Air 97.0 07/20/17 21:00 71 93/62 07/20/17 20:14 Room Air 07/20/17 20:12 Room Air 07/20/17 20:12 94 Room Air 21 07/20/17 20:12 Room Air 21 07/20/17 20:00 98.2 71 20 93/62 95 Room Air 98.2 07/20/17 20:00 86 Intake and Output 07/20/17 07/21/17 18:59 06:59 Intake Total 950 ml Output Total 2400 ml 1500 ml Balance -1450 ml -1500 ml Other 950 ml Output Urine Total 2400 ml 1500 ml 2D Echo: LVEF 15%, Mild LVH, LAE, Global LV HK, RVSP 63, Mod MR, Grade I LVDD Laboratory Tests Test 07/20/17 19:00 07/21/17 07:00 07/21/17 11:50 07/21/17 16:10 Urine Color Jyoti Pale yellow Urine Appearance Cloudy Clear Urine pH 8 (4.5-8.0) 7 (4.5-8.0) Urine Specific [place] 1.010 (1.005-1.035) 1.005 (1.005-1.035) Urine Protein 2+ (NEGATIVE) H 2+ (NEGATIVE) H Urine Glucose (UA) Negative (NEGATIVE) Negative (NEGATIVE) Urine Ketones Negative (NEGATIVE) Negative (NEGATIVE) Urine Occult Blood 5+ (NEGATIVE) H 5+ (NEGATIVE) H Urine Nitrite Negative (NEGATIVE) Negative (NEGATIVE) Urine Bilirubin Negative (NEGATIVE) Negative (NEGATIVE) Urine Ictotest Negative Urine Urobilinogen 1 MG/DL (0.0-1.0) H Normal MG/DL (0.0-1.0) Urine Leukocyte Esterase 2+ (NEGATIVE) H 3+ (NEGATIVE) H Urine RBC Tntc /HPF (0 - 0) H 30-40 /HPF (0 - 0) H Urine WBC 2-4 /HPF (0 - 0) 5-10 /HPF (0 - 0) H Urine Squamous Epithelial Cells None /LPF (NONE/OCC) Occasional /LPF Urine Bacteria Few /HPF (NONE) Occasional /HPF (NONE) Prothrombin Time 18.6 SEC (9.30-11.50) H Prothromb Time International Ratio 1.8 (0.9-1.1) H C-Reactive Protein, Quantitative 1.0 mg/dL (0.00-0.90) H Sodium Level 137 MMOL/L (136-145) Potassium Level 3.5 MMOL/L (3.5-5.1) Chloride Level 98 MMOL/L (98-107) Carbon Dioxide Level 34 MMOL/L (21-32) H Anion Gap 5 mmol/L (5-15) Blood Urea Nitrogen 32 mg/dL (7-18) H Creatinine 1.6 MG/DL (0.55-1.30) H Estimat Glomerular Filtration Rate 46.6 mL/min (>60) Glucose Level 178 MG/DL (74-106) H Calcium Level 9.7 MG/DL (8.5-10.1) Total Bilirubin 1.5 MG/DL (0.2-1.0) H Direct Bilirubin 0.7 MG/DL (0.0-0.3) H Aspartate Amino Transf (AST/SGOT) 36 U/L (15-37) Alanine Aminotransferase (ALT/SGPT) 36 U/L (12-78) Alkaline Phosphatase 95 U/L (46-116) Total Protein 7.2 G/DL (6.4-8.2) Albumin 3.2 G/DL (3.4-5.0) L Globulin 4.0 g/dL Albumin/Globulin Ratio 0.8 (1.0-2.7) L Microbiology Date/Time Source Procedure Growth Status 07/20/17 19:00 Indwelling Cath Urine Culture - Preliminary NO GROWTH Resulted Objective HEENT: Atraumatic and normocephalic. Anicteric. Pupils are equal, round, and reactive to light and accommodation. Extraocular muscles intact. NECK: Hard to evaluate JVD. No carotid bruit. Carotid upstrokes 2+ bilaterally. CARDIOVASCULAR: Normal S1 and S2. PMI is at fourth intercostal space at the midclavicular line. LUNGS: Diminished breath sounds in both bases, some scattered crackles, and rhonchi. ABDOMEN: Distended. I do not appreciate any hepatosplenomegaly. Positive bowel sounds. EXTREMITIES: There is 3+ to 4+ bilateral lower extremity edema as well as scrotal edema. Sergio Dumas MD July 21, 2017 18:43
[2017-07-21 20:00] VITALS: BP 108/66
[2017-07-21] MEDS: Atorvastatin 20mg tab ORAL SCH (20:42)
--- NOTE | 2017-07-21 21:19 | General Progress Note ---
Assessment/Plan Assessment/Plan Assessment - CM/CHF - EF 15-20% - abnormal LFT - ? passive congestion - ? fatty liver - ? KELLY/fibrosis Recommendations - follow LFT periodically - f/u hepatitis serologies --> negative - cardiology f/u - MRCP pending Subjective Allergies: Coded Allergies: No Known Allergies (Unverified , 07/13/17) Subjective Feels OK no abdominal pain labs noted - bili better MRCP not done today since patient ate Objective Last 24 Hour Vital Signs Date Time Temp Pulse Resp B/P (MAP) Pulse Ox O2 Delivery O2 Flow Rate FiO2 07/21/17 20:43 94 108/66 07/21/17 20:06 96 Room Air 21 07/21/17 20:06 Room Air 07/21/17 19:50 70 18 98 Room Air 21 07/21/17 19:40 68 20 96 Room Air 07/21/17 16:00 84 07/21/17 16:00 96.4 94 20 109/61 99 Nasal Cannula 2.0 28 96.4 07/21/17 13:08 80 20 99 Nasal Cannula 2.0 28 07/21/17 13:07 78 18 93 Nasal Cannula 2.0 28 07/21/17 12:00 87 07/21/17 12:00 96.4 79 20 95/57 96 Room Air 2.0 21 96.4 07/21/17 09:02 115/76 07/21/17 09:02 93 115/76 07/21/17 08:06 88 20 96 Room Air 21 07/21/17 08:00 Nasal Cannula 2.0 28 07/21/17 08:00 97.0 93 18 115/76 93 Room Air 2.0 21 97.0 07/21/17 08:00 90 07/21/17 08:00 93 Room Air 21 07/21/17 08:00 95 18 93 Room Air 21 07/21/17 04:00 97.0 81 20 118/68 98 Room Air 97.0 07/21/17 04:00 83 07/21/17 01:42 Room Air 07/21/17 01:41 Room Air 07/21/17 00:00 88 07/21/17 00:00 97.0 89 20 113/63 95 Room Air 97.0 Intake and Output 07/20/17 07/21/17 19:00 07:00 Intake Total 950 ml Output Total 2400 ml 1500 ml Balance -1450 ml -1500 ml Other 950 ml Output Urine Total 2400 ml 1500 ml Laboratory Tests 07/21/17 07:00: Prothrombin Time 18.6H, Prothromb Time International Ratio 1.8H, C-Reactive Protein, Quantitative 1.0H 07/21/17 11:50: Urine Color Pale yellow, Urine Appearance Clear, Urine pH 7, Urine Specific [place] 1.005, Urine Protein 2+H, Urine Glucose (UA) Negative, Urine Ketones Negative, Urine Occult Blood 5+H, Urine Nitrite Negative, Urine Bilirubin Negative, Urine Urobilinogen Normal, Urine Leukocyte Esterase 3+H, Urine RBC 30- 40H, Urine WBC 5-10H, Urine Squamous Epithelial Cells Occasional, Urine Bacteria Occasional 07/21/17 16:10: Sodium Level 137, Potassium Level 3.5, Chloride Level 98, Carbon Dioxide Level 34H, Anion Gap 5, Blood Urea Nitrogen 32H, Creatinine 1.6H, Estimat Glomerular Filtration Rate 46.6, Glucose Level 178H, Calcium Level 9.7, Total Bilirubin 1.5H, Direct Bilirubin 0.7H, Aspartate Amino Transf (AST/SGOT) 36, Alanine Aminotransferase (ALT/SGPT) 36, Alkaline Phosphatase 95, Total Protein 7.2, Albumin 3.2L, Globulin 4.0, Albumin/Globulin Ratio 0.8L Height (Feet): 5 Height (Inches): 10.00 Weight (Pounds): 321 Objective Obese WM NCAT supple CTA RRR Soft Obese NT (++) edema non focal Miki Constantino MD July 21, 2017 21:19
--- NOTE | 2017-07-21 21:29 | General Progress Note ---
Assessment/Plan Problem List: (1) CHF (congestive heart failure) ICD Codes: I50.9 - Heart failure, unspecified SNOMED: 18066713 Qualifiers: Qualified Codes: I50.9 - Heart failure, unspecified Status: progressing Assessment/Plan low k s/p replacement dc home if ok w business account specialist no sob chf exacerbation improving morbid obesity Subjective ROS Limited/Unobtainable: Yes Allergies: Coded Allergies: No Known Allergies (Unverified , 07/13/17) Objective Last 24 Hour Vital Signs Date Time Temp Pulse Resp B/P (MAP) Pulse Ox O2 Delivery O2 Flow Rate FiO2 07/21/17 20:43 94 108/66 07/21/17 20:06 96 Room Air 21 07/21/17 20:06 Room Air 07/21/17 19:50 70 18 98 Room Air 21 07/21/17 19:40 68 20 96 Room Air 07/21/17 16:00 84 07/21/17 16:00 96.4 94 20 109/61 99 Nasal Cannula 2.0 28 96.4 07/21/17 13:08 80 20 99 Nasal Cannula 2.0 28 07/21/17 13:07 78 18 93 Nasal Cannula 2.0 28 07/21/17 12:00 87 07/21/17 12:00 96.4 79 20 95/57 96 Room Air 2.0 21 96.4 07/21/17 09:02 115/76 07/21/17 09:02 93 115/76 07/21/17 08:06 88 20 96 Room Air 21 07/21/17 08:00 Nasal Cannula 2.0 28 07/21/17 08:00 97.0 93 18 115/76 93 Room Air 2.0 21 97.0 07/21/17 08:00 90 07/21/17 08:00 93 Room Air 21 07/21/17 08:00 95 18 93 Room Air 21 07/21/17 04:00 97.0 81 20 118/68 98 Room Air 97.0 07/21/17 04:00 83 07/21/17 01:42 Room Air 07/21/17 01:41 Room Air 07/21/17 00:00 88 07/21/17 00:00 97.0 89 20 113/63 95 Room Air 97.0 Intake and Output 07/20/17 07/21/17 19:00 07:00 Intake Total 950 ml Output Total 2400 ml 1500 ml Balance -1450 ml -1500 ml Other 950 ml Output Urine Total 2400 ml 1500 ml Laboratory Tests 07/21/17 07:00: Prothrombin Time 18.6H, Prothromb Time International Ratio 1.8H, C-Reactive Protein, Quantitative 1.0H 07/21/17 11:50: Urine Color Pale yellow, Urine Appearance Clear, Urine pH 7, Urine Specific [place] 1.005, Urine Protein 2+H, Urine Glucose (UA) Negative, Urine Ketones Negative, Urine Occult Blood 5+H, Urine Nitrite Negative, Urine Bilirubin Negative, Urine Urobilinogen Normal, Urine Leukocyte Esterase 3+H, Urine RBC 30- 40H, Urine WBC 5-10H, Urine Squamous Epithelial Cells Occasional, Urine Bacteria Occasional 07/21/17 16:10: Sodium Level 137, Potassium Level 3.5, Chloride Level 98, Carbon Dioxide Level 34H, Anion Gap 5, Blood Urea Nitrogen 32H, Creatinine 1.6H, Estimat Glomerular Filtration Rate 46.6, Glucose Level 178H, Calcium Level 9.7, Total Bilirubin 1.5H, Direct Bilirubin 0.7H, Aspartate Amino Transf (AST/SGOT) 36, Alanine Aminotransferase (ALT/SGPT) 36, Alkaline Phosphatase 95, Total Protein 7.2, Albumin 3.2L, Globulin 4.0, Albumin/Globulin Ratio 0.8L Height (Feet): 5 Height (Inches): 10.00 Weight (Pounds): 321 Neck: supple Cardiovascular: normal rate Respiratory/Chest: lungs clear Abdomen: soft Ronny Nina MD July 21, 2017 21:28
[2017-07-22] VITALS: BP 110/68
[2017-07-22] MEDS: Albuterol/Ipratropium 3ml neb HHN SCH ×4 (01:00→20:01)
[2017-07-22 04:00] VITALS: BP 101/68
[2017-07-22 06:06] LABS: BASOPHILS % (AUTO) 1.1 % (0.0-2.0); EOSINOPHILS % (AUTO) 2.3 % (0.0-3.0); HEMATOCRIT 46.9 % (42.0-52.0); HEMOGLOBIN 15.7 G/DL (14.2-18.0); LYMPHOCYTES % (AUTO) 18.4 % (20.0-45.0); MEAN CORPUSCULAR VOLUME 85 FL (80-99); MONOCYTES % (AUTO) 8.5 % (1.0-10.0); NEUTROPHILS % (AUTO) 69.7 % (45.0-75.0); PLATELET COUNT 239 K/UL (150-450); RED CELL DISTRIBUTION WIDTH 15.5 % (11.6-14.8); WHITE BLOOD COUNT 7.8 K/UL (4.8-10.8)
[2017-07-22] MEDS: NovoLOG Insulin Flexpen SUBQ SCH ×3 (06:17→17:24)
[2017-07-22 06:22] LABS: INR 2.4 (0.9-1.1)
[2017-07-22 06:45] LABS: ALANINE AMINOTRANSFERASE 33 U/L (12-78); ALBUMIN 3.1 G/DL (3.4-5.0); ALBUMIN/GLOBULIN RATIO 0.8 (1.0-2.7); ALKALINE PHOSPHATASE 87 U/L (46-116); ANION GAP 12 mmol/L (5-15); ASPARTATE AMINO TRANSFERASE 32 U/L (15-37); BILIRUBIN,TOTAL 1.6 MG/DL (0.2-1.0); BLOOD UREA NITROGEN 29 mg/dL (7-18); CALCIUM 9.5 MG/DL (8.5-10.1); CARBON DIOXIDE 27 MMOL/L (21-32); CHLORIDE 99 MMOL/L (98-107); CREATININE 1.2 MG/DL (0.55-1.30); PHOSPHORUS 3.8 MG/DL (2.5-4.9); POTASSIUM 3.5 MMOL/L (3.5-5.1); SODIUM 138 MMOL/L (136-145)
--- NOTE | 2017-07-22 06:57 | Diagnostic Imaging Report ---
APPROVED REPORT CPT Code: 27589 Present Symptoms Shortness of breath Past History Pulmonary Embolism Risk Factors Obesity Comments Technically difficult and limited visualization due to obesity Technically difficult/limited visualization due to vessel depth (mid-thigh area). BILATERAL: Imaging reveals a patent deep venous system bilaterally. There is no evidence of thrombus within the femoral, popliteal or tibial segments. The greater saphenous veins are also within normal limits. Doppler indicates normal spontaneous flow within these segments.
[2017-07-22 06:58] LABS: BILIRUBIN,DIRECT 0.6 MG/DL (0.0-0.3)
[2017-07-22 08:00] VITALS: BP 104/68
[2017-07-22] MEDS: Aspirin Baby 81mg ORAL SCH (08:46)
[2017-07-22] MEDS: Carvedilol 25mg Tab ORAL SCH (08:49)
[2017-07-22] MEDS: Lisinopril 2.5mg tab ORAL SCH (08:50)
[2017-07-22] MEDS ORDERED: Furosemide 80mg tab ORAL SCH (09:00)
[2017-07-22] MEDS ORDERED: metOLazone 2.5 MG TAB ORAL SCH (09:00)
--- NOTE | 2017-07-22 10:10 | Infectious Diseases Prog Note ---
Assessment/Plan Assessment/Plan A; Cellulitis of groin Atelectasis/ Pneumonia Systolic CHF, EF=10-20% DM Morbid obesity MARSHA Elevation of bilirubin P; Continue Clotrimazole in hospital Subjective ROS Limited/Unobtainable: Yes Allergies: Coded Allergies: No Known Allergies (Unverified , 07/13/17) Objective Vital Signs Last 24 Hour Vital Signs Date Time Temp Pulse Resp B/P (MAP) Pulse Ox O2 Delivery O2 Flow Rate FiO2 07/22/17 08:50 104/68 07/22/17 08:49 101 104/68 07/22/17 07:28 Room Air 07/22/17 07:28 Room Air 07/22/17 07:28 Room Air 07/22/17 07:28 95 Room Air 21 07/22/17 04:00 89 07/22/17 04:00 97.3 87 19 101/68 95 Room Air 97.3 07/22/17 01:12 78 16 98 Room Air 21 07/22/17 01:02 82 18 95 Room Air 07/22/17 00:00 97.3 96 21 110/68 100 Room Air 97.3 07/22/17 00:00 89 07/21/17 20:43 94 108/66 07/21/17 20:06 96 Room Air 21 07/21/17 20:06 Room Air 07/21/17 20:00 97.5 95 18 108/66 96 Room Air 97.5 07/21/17 20:00 92 07/21/17 19:50 70 18 98 Room Air 21 07/21/17 19:40 68 20 96 Room Air 07/21/17 16:00 84 07/21/17 16:00 96.4 94 20 109/61 99 Nasal Cannula 2.0 28 96.4 07/21/17 13:08 80 20 99 Nasal Cannula 2.0 28 07/21/17 13:07 78 18 93 Nasal Cannula 2.0 28 07/21/17 12:00 87 07/21/17 12:00 96.4 79 20 95/57 96 Room Air 2.0 21 96.4 Height (Feet): 5 Height (Inches): 10.00 Weight (Pounds): 320 General Appearance: no acute distress HEENT: mucous membranes moist Respiratory/Chest: lungs clear Cardiovascular: normal rate Abdomen: soft, non tender, other - obese Extremities: other - generalized edema Skin: rash, other - resolving Neurologic/Psychiatric: other - sleeping Microbiology Date/Time Source Procedure Growth Status 07/20/17 19:00 Indwelling Cath Urine Culture - Preliminary NO GROWTH Resulted Laboratory Tests Test 07/21/17 11:50 07/21/17 16:10 07/22/17 05:20 Urine Color Pale yellow Urine Appearance Clear Urine pH 7 (4.5-8.0) Urine Specific [place] 1.005 (1.005-1.035) Urine Protein 2+ (NEGATIVE) H Urine Glucose (UA) Negative (NEGATIVE) Urine Ketones Negative (NEGATIVE) Urine Occult Blood 5+ (NEGATIVE) H Urine Nitrite Negative (NEGATIVE) Urine Bilirubin Negative (NEGATIVE) Urine Urobilinogen Normal MG/DL (0.0-1.0) Urine Leukocyte Esterase 3+ (NEGATIVE) H Urine RBC 30-40 /HPF (0 - 0) H Urine WBC 5-10 /HPF (0 - 0) H Urine Squamous Epithelial Cells Occasional /LPF Urine Bacteria Occasional /HPF (NONE) Sodium Level 137 MMOL/L (136-145) 138 MMOL/L (136-145) Potassium Level 3.5 MMOL/L (3.5-5.1) 3.5 MMOL/L (3.5-5.1) Chloride Level 98 MMOL/L (98-107) 99 MMOL/L (98-107) Carbon Dioxide Level 34 MMOL/L (21-32) H 27 MMOL/L (21-32) Anion Gap 5 mmol/L (5-15) 12 mmol/L (5-15) Blood Urea Nitrogen 32 mg/dL (7-18) H 29 mg/dL (7-18) H Creatinine 1.6 MG/DL (0.55-1.30) H 1.2 MG/DL (0.55-1.30) Estimat Glomerular Filtration Rate 46.6 mL/min (>60) > 60 mL/min (>60) Glucose Level 178 MG/DL (74-106) H 158 MG/DL (74-106) H Calcium Level 9.7 MG/DL (8.5-10.1) 9.5 MG/DL (8.5-10.1) Total Bilirubin 1.5 MG/DL (0.2-1.0) H 1.6 MG/DL (0.2-1.0) H Direct Bilirubin 0.7 MG/DL (0.0-0.3) H 0.6 MG/DL (0.0-0.3) H Aspartate Amino Transf (AST/SGOT) 36 U/L (15-37) 32 U/L (15-37) Alanine Aminotransferase (ALT/SGPT) 36 U/L (12-78) 33 U/L (12-78) Alkaline Phosphatase 95 U/L (46-116) 87 U/L (46-116) Total Protein 7.2 G/DL (6.4-8.2) 7.2 G/DL (6.4-8.2) Albumin 3.2 G/DL (3.4-5.0) L 3.1 G/DL (3.4-5.0) L Globulin 4.0 g/dL 4.1 g/dL Albumin/Globulin Ratio 0.8 (1.0-2.7) L 0.8 (1.0-2.7) L White Blood Count 7.8 K/UL (4.8-10.8) Red Blood Count 5.50 M/UL (4.70-6.10) Hemoglobin 15.7 G/DL (14.2-18.0) Hematocrit 46.9 % (42.0-52.0) Mean Corpuscular Volume 85 FL (80-99) Mean Corpuscular Hemoglobin 28.5 PG (27.0-31.0) Mean Corpuscular Hemoglobin Concent 33.5 G/DL (32.0-36.0) Red Cell Distribution Width 15.5 % (11.6-14.8) H Platelet Count 239 K/UL (150-450) Mean Platelet Volume 6.9 FL (6.5-10.1) Neutrophils (%) (Auto) 69.7 % (45.0-75.0) Lymphocytes (%) (Auto) 18.4 % (20.0-45.0) L Monocytes (%) (Auto) 8.5 % (1.0-10.0) Eosinophils (%) (Auto) 2.3 % (0.0-3.0) Basophils (%) (Auto) 1.1 % (0.0-2.0) Prothrombin Time 25.1 SEC (9.30-11.50) H Prothromb Time International Ratio 2.4 (0.9-1.1) H Uric Acid 8.2 MG/DL (2.6-7.2) H Phosphorus Level 3.8 MG/DL (2.5-4.9) Magnesium Level 1.7 MG/DL (1.8-2.4) L Pro-B-Type Natriuretic Peptide 2429 pg/mL (0-125) H Current Medications Medications (Trade) Dose Ordered Sig/Dago Route PRN Reason Start Time Stop Time Status Last Admin Dose Admin Acetaminophen (Tylenol) 650 mg Q4H PRN ORAL Mild Pain/Temp > 100.5 07/13/17 16:30 08/12/17 16:29 07/18/17 21:25 Albuterol/ Ipratropium (Albuterol/ Ipratropium) 3 ml Q4H PRN HHN Shortness of Breath 07/18/17 08:30 07/23/17 08:29 Albuterol/ Ipratropium (Albuterol/ Ipratropium) 3 ml Q6HRT HHN 07/19/17 01:00 07/24/17 00:59 07/22/17 01:00 Allopurinol (Allopurinol) 300 mg DAILY ORAL 07/14/17 09:00 08/13/17 08:59 07/22/17 08:46 Aspirin (ASA) 81 mg DAILY ORAL 07/16/17 09:00 08/13/17 08:59 07/22/17 08:46 Atorvastatin Calcium (Lipitor) 20 mg BEDTIME ORAL 07/13/17 21:00 08/12/17 20:59 07/21/17 20:42 Carvedilol (Coreg) 25 mg EVERY 12 HOURS ORAL 07/14/17 21:00 08/13/17 20:59 07/22/17 08:49 Clotrimazole (Lotrimin) 1 applic THREE TIMES A DAY TOPIC 07/16/17 13:00 08/15/17 12:59 07/22/17 08:45 Dextrose (Dextrose 50%) 25 ml STAT PRN IV Hypoglycemia 07/13/17 15:45 08/12/17 15:44 Furosemide (Lasix) 80 mg DAILY ORAL 07/22/17 09:00 08/21/17 08:59 07/22/17 08:46 Insulin Aspart (NovoLOG) BEFORE MEALS AND HS SUBQ 07/13/17 17:30 08/12/17 17:29 07/22/17 06:17 Lisinopril (Zestril) 5 mg DAILY ORAL 07/16/17 09:00 08/15/17 08:59 07/22/17 08:50 Metolazone (Zaroxolyn) 2.5 mg DAILY ORAL 07/22/17 09:00 08/21/17 08:59 07/22/17 08:46 Potassium Chloride (K-Dur) 40 meq TID ORAL 07/20/17 13:00 08/16/17 12:59 07/22/17 08:46 Warfarin Sodium (Coumadin per pharmacy) 1 ea DAILY PRN MISC Per rx protocol 07/13/17 18:45 08/12/17 18:44 Warfarin Sodium (Coumadin) 3 mg COUMADIN ORAL 07/22/17 17:00 07/22/17 19:00 PÉREZ ARORA July 22, 2017 10:10
--- NOTE | 2017-07-22 10:20 | Pulmonology Progress Note ---
Assessment/Plan Assessment/Plan ASSESSMENT: * Acute hypoxemic RF 2/2 CHF with ADHF and underlying MARSHA * CHF (LVEF 15%) with AHDF * Elevated cardiac biomarkers, likely demand ischemia * Morbid obesity * OSH/OHV, non-compliant with CPAP * Abnormal LFT's * H/O PE on A/C * Groin cellulitis * DM, HTN, HL PLAN: * Optimize pulmonary hygiene/mobilize as tolerated * PRN O2 * BiPAP 12/5 qHS and PRN - ENCOURAGE COMPLIANCE * RTC and PRN HHN's * Continue PO Lasix & Metolazone per cards * Monitor volumes and renal function * F/U cardiology recs * COUMADIN per Rx * Observe off Abx per ID * Aspiration precautions * DVT Px: A/C * FC * D/W SW, will work on OP care, should be at a [facility] clinic, needs a PSG and CPAP titration, needs good F/U Larry Daniels MD, [facility] Subjective Allergies: Coded Allergies: No Known Allergies (Unverified , 07/13/17) All Systems: reviewed and negative except above Subjective AFVSS, stable O2 needs, -2.9L Refused BiPAP again ON - UNDERSTANDS RISKS Less SOB, no cough, less orthopnea, no PND, less CHRISTA, no NVDC, feels better overall Objective Last 24 Hour Vital Signs Date Time Temp Pulse Resp B/P (MAP) Pulse Ox O2 Delivery O2 Flow Rate FiO2 07/22/17 08:50 104/68 07/22/17 08:49 101 104/68 07/22/17 07:28 Room Air 07/22/17 07:28 Room Air 07/22/17 07:28 Room Air 07/22/17 07:28 95 Room Air 21 07/22/17 04:00 89 07/22/17 04:00 97.3 87 19 101/68 95 Room Air 97.3 07/22/17 01:12 78 16 98 Room Air 21 07/22/17 01:02 82 18 95 Room Air 07/22/17 00:00 97.3 96 21 110/68 100 Room Air 97.3 07/22/17 00:00 89 07/21/17 20:43 94 108/66 07/21/17 20:06 96 Room Air 21 07/21/17 20:06 Room Air 07/21/17 20:00 97.5 95 18 108/66 96 Room Air 97.5 07/21/17 20:00 92 07/21/17 19:50 70 18 98 Room Air 21 07/21/17 19:40 68 20 96 Room Air 07/21/17 16:00 84 07/21/17 16:00 96.4 94 20 109/61 99 Nasal Cannula 2.0 28 96.4 07/21/17 13:08 80 20 99 Nasal Cannula 2.0 28 07/21/17 13:07 78 18 93 Nasal Cannula 2.0 28 07/21/17 12:00 87 07/21/17 12:00 96.4 79 20 95/57 96 Room Air 2.0 21 96.4 Intake and Output 07/21/17 07/22/17 19:00 07:00 Intake Total 960 ml 360 ml Balance 960 ml 360 ml Intake Oral 960 ml 360 ml # Voids 1 2 General Appearance: no acute distress, other - morbidly obese HEENT: normocephalic, atraumatic, anicteric, mucous membranes moist Respiratory/Chest: chest wall non-tender, lungs clear, normal breath sounds, no respiratory distress Cardiovascular: normal peripheral pulses, normal rate, regular rhythm Abdomen: normal bowel sounds, soft, non tender, no organomegaly, non distended Extremities: no cyanosis, no clubbing, no edema Microbiology Date/Time Source Procedure Growth Status 07/20/17 19:00 Indwelling Cath Urine Culture - Preliminary NO GROWTH Resulted Laboratory Tests 07/21/17 11:50: Urine Color Pale yellow, Urine Appearance Clear, Urine pH 7, Urine Specific [place] 1.005, Urine Protein 2+H, Urine Glucose (UA) Negative, Urine Ketones Negative, Urine Occult Blood 5+H, Urine Nitrite Negative, Urine Bilirubin Negative, Urine Urobilinogen Normal, Urine Leukocyte Esterase 3+H, Urine RBC 30- 40H, Urine WBC 5-10H, Urine Squamous Epithelial Cells Occasional, Urine Bacteria Occasional 07/21/17 16:10: Sodium Level 137, Potassium Level 3.5, Chloride Level 98, Carbon Dioxide Level 34H, Anion Gap 5, Blood Urea Nitrogen 32H, Creatinine 1.6H, Estimat Glomerular Filtration Rate 46.6, Glucose Level 178H, Calcium Level 9.7, Total Bilirubin 1.5H, Direct Bilirubin 0.7H, Aspartate Amino Transf (AST/SGOT) 36, Alanine Aminotransferase (ALT/SGPT) 36, Alkaline Phosphatase 95, Total Protein 7.2, Albumin 3.2L, Globulin 4.0, Albumin/Globulin Ratio 0.8L 07/22/17 05:20: Sodium Level 138, Potassium Level 3.5, Chloride Level 99, Carbon Dioxide Level 27, Anion Gap 12, Blood Urea Nitrogen 29H, Creatinine 1.2, Estimat Glomerular Filtration Rate > 60, Glucose Level 158H, Calcium Level 9.5, Total Bilirubin 1.6H, Direct Bilirubin 0.6H, Aspartate Amino Transf (AST/SGOT) 32, Alanine Aminotransferase (ALT/SGPT) 33, Alkaline Phosphatase 87, Total Protein 7.2, Albumin 3.1L, Globulin 4.1, Albumin/Globulin Ratio 0.8L, White Blood Count 7.8, Red Blood Count 5.50, Hemoglobin 15.7, Hematocrit 46.9, Mean Corpuscular Volume 85, Mean Corpuscular Hemoglobin 28.5, Mean Corpuscular Hemoglobin Concent 33.5, Red Cell Distribution Width 15.5H, Platelet Count 239, Mean Platelet Volume 6.9 , Neutrophils (%) (Auto) 69.7, Lymphocytes (%) (Auto) 18.4L, Monocytes (%) (Auto ) 8.5, Eosinophils (%) (Auto) 2.3, Basophils (%) (Auto) 1.1, Prothrombin Time 25.1H, Prothromb Time International Ratio 2.4H, Uric Acid 8.2H, Phosphorus Level 3.8, Magnesium Level 1.7L, Pro-B-Type Natriuretic Peptide 2429H Current Medications Medications (Trade) Dose Ordered Sig/Dago Route PRN Reason Start Time Stop Time Status Last Admin Dose Admin Acetaminophen (Tylenol) 650 mg Q4H PRN ORAL Mild Pain/Temp > 100.5 07/13/17 16:30 08/12/17 16:29 07/18/17 21:25 Albuterol/ Ipratropium (Albuterol/ Ipratropium) 3 ml Q4H PRN HHN Shortness of Breath 07/18/17 08:30 07/23/17 08:29 Albuterol/ Ipratropium (Albuterol/ Ipratropium) 3 ml Q6HRT HHN 07/19/17 01:00 07/24/17 00:59 07/22/17 01:00 Allopurinol (Allopurinol) 300 mg DAILY ORAL 07/14/17 09:00 08/13/17 08:59 07/22/17 08:46 Aspirin (ASA) 81 mg DAILY ORAL 07/16/17 09:00 08/13/17 08:59 07/22/17 08:46 Atorvastatin Calcium (Lipitor) 20 mg BEDTIME ORAL 07/13/17 21:00 08/12/17 20:59 07/21/17 20:42 Carvedilol (Coreg) 25 mg EVERY 12 HOURS ORAL 07/14/17 21:00 08/13/17 20:59 07/22/17 08:49 Clotrimazole (Lotrimin) 1 applic THREE TIMES A DAY TOPIC 07/16/17 13:00 08/15/17 12:59 07/22/17 08:45 Dextrose (Dextrose 50%) 25 ml STAT PRN IV Hypoglycemia 07/13/17 15:45 08/12/17 15:44 Furosemide (Lasix) 80 mg DAILY ORAL 07/22/17 09:00 08/21/17 08:59 07/22/17 08:46 Insulin Aspart (NovoLOG) BEFORE MEALS AND HS SUBQ 07/13/17 17:30 08/12/17 17:29 07/22/17 06:17 Lisinopril (Zestril) 5 mg DAILY ORAL 07/16/17 09:00 08/15/17 08:59 07/22/17 08:50 Metolazone (Zaroxolyn) 2.5 mg DAILY ORAL 07/22/17 09:00 08/21/17 08:59 07/22/17 08:46 Potassium Chloride (K-Dur) 40 meq TID ORAL 07/20/17 13:00 08/16/17 12:59 07/22/17 08:46 Warfarin Sodium (Coumadin per pharmacy) 1 ea DAILY PRN MISC Per rx protocol 07/13/17 18:45 08/12/17 18:44 Warfarin Sodium (Coumadin) 3 mg COUMADIN ORAL 07/22/17 17:00 07/22/17 19:00 LARRY DANIELS M.D. July 22, 2017 10:20
--- NOTE | 2017-07-22 10:26 | Nephrology Progress Note ---
Assessment/Plan Problem List: (1) CHF (congestive heart failure) (2) Cardiomyopathy (3) Diabetic nephropathy (4) Respiratory failure Assessment Acute hypoxemic RF 2/2 CHF with ADHF and underlying MARSHA * CHF (LVEF 15%) with AHDF Left ventricular ejection fraction estimated to be 15-20 %. * Elevated cardiac biomarkers, likely demand ischemia * Morbid obesity * OSH/OHV, non-compliant with CPAP * Abnormal LFT's * H/O PE on A/C * Groin cellulitis * DM, and proteinuria * HTN, HL * UTI * low K Plan DC Albert- change Lasix to PO KCL PO supp. Optimize cardiac status Monitor lytes and renal parameters antibiotics DC planning?? Subjective ROS Limited/Unobtainable: No Objective Objective Last 24 Hour Vital Signs Date Time Temp Pulse Resp B/P (MAP) Pulse Ox O2 Delivery O2 Flow Rate FiO2 07/22/17 08:50 104/68 07/22/17 08:49 101 104/68 07/22/17 07:28 Room Air 07/22/17 07:28 Room Air 07/22/17 07:28 Room Air 07/22/17 07:28 95 Room Air 21 07/22/17 04:00 89 07/22/17 04:00 97.3 87 19 101/68 95 Room Air 97.3 07/22/17 01:12 78 16 98 Room Air 21 07/22/17 01:02 82 18 95 Room Air 07/22/17 00:00 97.3 96 21 110/68 100 Room Air 97.3 07/22/17 00:00 89 07/21/17 20:43 94 108/66 07/21/17 20:06 96 Room Air 21 07/21/17 20:06 Room Air 07/21/17 20:00 97.5 95 18 108/66 96 Room Air 97.5 07/21/17 20:00 92 07/21/17 19:50 70 18 98 Room Air 21 07/21/17 19:40 68 20 96 Room Air 07/21/17 16:00 84 07/21/17 16:00 96.4 94 20 109/61 99 Nasal Cannula 2.0 28 96.4 07/21/17 13:08 80 20 99 Nasal Cannula 2.0 28 07/21/17 13:07 78 18 93 Nasal Cannula 2.0 28 07/21/17 12:00 87 07/21/17 12:00 96.4 79 20 95/57 96 Room Air 2.0 21 96.4 Intake and Output 07/21/17 07/22/17 19:00 07:00 Intake Total 960 ml 360 ml Balance 960 ml 360 ml Intake Oral 960 ml 360 ml # Voids 1 2 Laboratory Tests 07/21/17 11:50: Urine Color Pale yellow, Urine Appearance Clear, Urine pH 7, Urine Specific [place] 1.005, Urine Protein 2+H, Urine Glucose (UA) Negative, Urine Ketones Negative, Urine Occult Blood 5+H, Urine Nitrite Negative, Urine Bilirubin Negative, Urine Urobilinogen Normal, Urine Leukocyte Esterase 3+H, Urine RBC 30- 40H, Urine WBC 5-10H, Urine Squamous Epithelial Cells Occasional, Urine Bacteria Occasional 07/21/17 16:10: Sodium Level 137, Potassium Level 3.5, Chloride Level 98, Carbon Dioxide Level 34H, Anion Gap 5, Blood Urea Nitrogen 32H, Creatinine 1.6H, Estimat Glomerular Filtration Rate 46.6, Glucose Level 178H, Calcium Level 9.7, Total Bilirubin 1.5H, Direct Bilirubin 0.7H, Aspartate Amino Transf (AST/SGOT) 36, Alanine Aminotransferase (ALT/SGPT) 36, Alkaline Phosphatase 95, Total Protein 7.2, Albumin 3.2L, Globulin 4.0, Albumin/Globulin Ratio 0.8L 07/22/17 05:20: Sodium Level 138, Potassium Level 3.5, Chloride Level 99, Carbon Dioxide Level 27, Anion Gap 12, Blood Urea Nitrogen 29H, Creatinine 1.2, Estimat Glomerular Filtration Rate > 60, Glucose Level 158H, Calcium Level 9.5, Total Bilirubin 1.6H, Direct Bilirubin 0.6H, Aspartate Amino Transf (AST/SGOT) 32, Alanine Aminotransferase (ALT/SGPT) 33, Alkaline Phosphatase 87, Total Protein 7.2, Albumin 3.1L, Globulin 4.1, Albumin/Globulin Ratio 0.8L, White Blood Count 7.8, Red Blood Count 5.50, Hemoglobin 15.7, Hematocrit 46.9, Mean Corpuscular Volume 85, Mean Corpuscular Hemoglobin 28.5, Mean Corpuscular Hemoglobin Concent 33.5, Red Cell Distribution Width 15.5H, Platelet Count 239, Mean Platelet Volume 6.9 , Neutrophils (%) (Auto) 69.7, Lymphocytes (%) (Auto) 18.4L, Monocytes (%) (Auto ) 8.5, Eosinophils (%) (Auto) 2.3, Basophils (%) (Auto) 1.1, Prothrombin Time 25.1H, Prothromb Time International Ratio 2.4H, Uric Acid 8.2H, Phosphorus Level 3.8, Magnesium Level 1.7L, Pro-B-Type Natriuretic Peptide 2429H Height (Feet): 5 Height (Inches): 10.00 Weight (Pounds): 320 General Appearance: no apparent distress Objective no change FLASH LEVI July 22, 2017 10:26
[2017-07-22 12:00] VITALS: BP 98/62
[2017-07-22] MEDS: Magnesium Oxide 400mg tab ORAL SCH ×2 (12:15→17:21)
[2017-07-22 16:06] VITALS: BP 113/70
[2017-07-22] MEDS ORDERED: Warfarin Sodium 3mg ORAL SCH (17:00)
--- NOTE | 2017-07-22 21:58 | General Progress Note ---
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 no sob chf exacerbation improving morbid obesity Subjective ROS Limited/Unobtainable: Yes Allergies: Coded Allergies: No Known Allergies (Unverified , 07/13/17) Objective Last 24 Hour Vital Signs Date Time Temp Pulse Resp B/P (MAP) Pulse Ox O2 Delivery O2 Flow Rate FiO2 07/22/17 20:16 95 18 99 Room Air 21 07/22/17 20:01 Room Air 07/22/17 20:01 97 18 96 Room Air 07/22/17 20:01 96 Room Air 21 07/22/17 16:06 97.6 82 20 113/70 97 Room Air 97.6 07/22/17 16:00 83 07/22/17 13:00 Room Air 07/22/17 13:00 Room Air 07/22/17 12:00 97.5 81 19 98/62 99 Room Air 2.0 21 97.5 07/22/17 12:00 96 07/22/17 08:50 104/68 07/22/17 08:49 101 104/68 07/22/17 08:00 95 07/22/17 08:00 97.2 101 19 104/68 99 Room Air 97.2 07/22/17 07:28 Room Air 07/22/17 07:28 Room Air 07/22/17 07:28 Room Air 07/22/17 07:28 95 Room Air 21 07/22/17 04:00 89 07/22/17 04:00 97.3 87 19 101/68 95 Room Air 97.3 07/22/17 01:12 78 16 98 Room Air 21 07/22/17 01:02 82 18 95 Room Air 07/22/17 00:00 97.3 96 21 110/68 100 Room Air 97.3 07/22/17 00:00 89 Intake and Output 07/21/17 07/22/17 19:00 07:00 Intake Total 960 ml 360 ml Balance 960 ml 360 ml Intake Oral 960 ml 360 ml # Voids 1 2 Laboratory Tests 5/24/18 05:20: White Blood Count 7.8, Red Blood Count 5.50, Hemoglobin 15.7, Hematocrit 46.9, Mean Corpuscular Volume 85, Mean Corpuscular Hemoglobin 28.5, Mean Corpuscular Hemoglobin Concent 33.5, Red Cell Distribution Width 15.5H, Platelet Count 239, Mean Platelet Volume 6.9, Neutrophils (%) (Auto) 69.7, Lymphocytes (%) (Auto) 18.4L, Monocytes (%) (Auto) 8.5, Eosinophils (%) (Auto) 2.3, Basophils (%) (Auto ) 1.1, Prothrombin Time 25.1H, Prothromb Time International Ratio 2.4H, Sodium Level 138, Potassium Level 3.5, Chloride Level 99, Carbon Dioxide Level 27, Anion Gap 12, Blood Urea Nitrogen 29H, Creatinine 1.2, Estimat Glomerular Filtration Rate > 60, Glucose Level 158H, Uric Acid 8.2H, Calcium Level 9.5, Phosphorus Level 3.8, Magnesium Level 1.7L, Total Bilirubin 1.6H, Direct Bilirubin 0.6H, Aspartate Amino Transf (AST/SGOT) 32, Alanine Aminotransferase ( ALT/SGPT) 33, Alkaline Phosphatase 87, Pro-B-Type Natriuretic Peptide 2429H, Total Protein 7.2, Albumin 3.1L, Globulin 4.1, Albumin/Globulin Ratio 0.8L Height (Feet): 5 Height (Inches): 10.00 Weight (Pounds): 320 Cardiovascular: normal rate Respiratory/Chest: lungs clear Abdomen: soft Ronny Nina MD July 22, 2017 21:58
--- NOTE | 2017-07-22 22:52 | General Progress Note ---
Assessment/Plan Assessment/Plan Assessment - CM/CHF - EF 15-20% - abnormal LFT - ? passive congestion - ? fatty liver - ? KELLY/fibrosis Recommendations - follow LFT periodically - f/u hepatitis serologies --> negative - cardiology f/u - outpatient open MRI MRCP Subjective Allergies: Coded Allergies: No Known Allergies (Unverified , 07/13/17) Subjective Feels OK no abdominal pain did not fit in MRI advised to ask PMD for outpatient open MRI Objective Last 24 Hour Vital Signs Date Time Temp Pulse Resp B/P (MAP) Pulse Ox O2 Delivery O2 Flow Rate FiO2 07/22/17 20:16 95 18 99 Room Air 21 07/22/17 20:01 Room Air 07/22/17 20:01 97 18 96 Room Air 07/22/17 20:01 96 Room Air 21 07/22/17 16:06 97.6 82 20 113/70 97 Room Air 97.6 07/22/17 16:00 83 07/22/17 13:00 Room Air 07/22/17 13:00 Room Air 07/22/17 12:00 97.5 81 19 98/62 99 Room Air 2.0 21 97.5 07/22/17 12:00 96 07/22/17 08:50 104/68 07/22/17 08:49 101 104/68 07/22/17 08:00 95 07/22/17 08:00 97.2 101 19 104/68 99 Room Air 97.2 07/22/17 07:28 Room Air 07/22/17 07:28 Room Air 07/22/17 07:28 Room Air 07/22/17 07:28 95 Room Air 21 07/22/17 04:00 89 07/22/17 04:00 97.3 87 19 101/68 95 Room Air 97.3 07/22/17 01:12 78 16 98 Room Air 21 07/22/17 01:02 82 18 95 Room Air 07/22/17 00:00 97.3 96 21 110/68 100 Room Air 97.3 07/22/17 00:00 89 Intake and Output 07/21/17 07/22/17 19:00 07:00 Intake Total 960 ml 360 ml Balance 960 ml 360 ml Intake Oral 960 ml 360 ml # Voids 1 2 Laboratory Tests 07/22/17 05:20: White Blood Count 7.8, Red Blood Count 5.50, Hemoglobin 15.7, Hematocrit 46.9, Mean Corpuscular Volume 85, Mean Corpuscular Hemoglobin 28.5, Mean Corpuscular Hemoglobin Concent 33.5, Red Cell Distribution Width 15.5H, Platelet Count 239, Mean Platelet Volume 6.9, Neutrophils (%) (Auto) 69.7, Lymphocytes (%) (Auto) 18.4L, Monocytes (%) (Auto) 8.5, Eosinophils (%) (Auto) 2.3, Basophils (%) (Auto ) 1.1, Prothrombin Time 25.1H, Prothromb Time International Ratio 2.4H, Sodium Level 138, Potassium Level 3.5, Chloride Level 99, Carbon Dioxide Level 27, Anion Gap 12, Blood Urea Nitrogen 29H, Creatinine 1.2, Estimat Glomerular Filtration Rate > 60, Glucose Level 158H, Uric Acid 8.2H, Calcium Level 9.5, Phosphorus Level 3.8, Magnesium Level 1.7L, Total Bilirubin 1.6H, Direct Bilirubin 0.6H, Aspartate Amino Transf (AST/SGOT) 32, Alanine Aminotransferase ( ALT/SGPT) 33, Alkaline Phosphatase 87, Pro-B-Type Natriuretic Peptide 2429H, Total Protein 7.2, Albumin 3.1L, Globulin 4.1, Albumin/Globulin Ratio 0.8L Height (Feet): 5 Height (Inches): 10.00 Weight (Pounds): 320 Objective Obese WM NCAT supple CTA RRR Soft Obese NT (++) edema non focal Miki Constantino MD July 22, 2017 22:52
--- NOTE | 2017-07-22 23:57 | Cardiology Progress Note ---
Assessment/Plan Assessment/Plan 1. Acute on chronic systolic CHF, continue metolazone and lasix, creatinine down to 1.2. Continue carvedilol, lisinopril and the diuretics. 2. History of nonischemic cardiomyopathy. 3. Slight elevation of troponin I level could be due to myocarditis, doubt this is acute coronary syndrome given lack of chest pain. 4. History of pulmonary embolism. On warfarin, keep INR between 2 to 3. 5. Diabetes mellitus, uncontrolled. 6. MIKE, creat up to 1.6. 7. Dyslipidemia with low HDL. Subjective Subjective Sinus rhythm at 97. Objective Last 24 Hour Vital Signs Date Time Temp Pulse Resp B/P (MAP) Pulse Ox O2 Delivery O2 Flow Rate FiO2 07/22/17 20:16 95 18 99 Room Air 21 07/22/17 20:01 Room Air 07/22/17 20:01 97 18 96 Room Air 07/22/17 20:01 96 Room Air 21 07/22/17 16:06 97.6 82 20 113/70 97 Room Air 97.6 07/22/17 16:00 83 07/22/17 13:00 Room Air 07/22/17 13:00 Room Air 07/22/17 12:00 97.5 81 19 98/62 99 Room Air 2.0 21 97.5 07/22/17 12:00 96 07/22/17 08:50 104/68 07/22/17 08:49 101 104/68 07/22/17 08:00 95 07/22/17 08:00 97.2 101 19 104/68 99 Room Air 97.2 07/22/17 07:28 Room Air 07/22/17 07:28 Room Air 07/22/17 07:28 Room Air 07/22/17 07:28 95 Room Air 21 07/22/17 04:00 89 07/22/17 04:00 97.3 87 19 101/68 95 Room Air 97.3 07/22/17 01:12 78 16 98 Room Air 21 07/22/17 01:02 82 18 95 Room Air 07/22/17 00:00 97.3 96 21 110/68 100 Room Air 97.3 07/22/17 00:00 89 Intake and Output 07/21/17 07/22/17 19:00 07:00 Intake Total 960 ml 360 ml Balance 960 ml 360 ml Intake Oral 960 ml 360 ml # Voids 1 2 2D Echo: LVEF 15%, Mild LVH, LAE, Global LV HK, RVSP 63, Mod MR, Grade I LVDD Laboratory Tests Test 07/22/17 05:20 White Blood Count 7.8 K/UL (4.8-10.8) Red Blood Count 5.50 M/UL (4.70-6.10) Hemoglobin 15.7 G/DL (14.2-18.0) Hematocrit 46.9 % (42.0-52.0) Mean Corpuscular Volume 85 FL (80-99) Mean Corpuscular Hemoglobin 28.5 PG (27.0-31.0) Mean Corpuscular Hemoglobin Concent 33.5 G/DL (32.0-36.0) Red Cell Distribution Width 15.5 % (11.6-14.8) H Platelet Count 239 K/UL (150-450) Mean Platelet Volume 6.9 FL (6.5-10.1) Neutrophils (%) (Auto) 69.7 % (45.0-75.0) Lymphocytes (%) (Auto) 18.4 % (20.0-45.0) L Monocytes (%) (Auto) 8.5 % (1.0-10.0) Eosinophils (%) (Auto) 2.3 % (0.0-3.0) Basophils (%) (Auto) 1.1 % (0.0-2.0) Prothrombin Time 25.1 SEC (9.30-11.50) H Prothromb Time International Ratio 2.4 (0.9-1.1) H Sodium Level 138 MMOL/L (136-145) Potassium Level 3.5 MMOL/L (3.5-5.1) Chloride Level 99 MMOL/L (98-107) Carbon Dioxide Level 27 MMOL/L (21-32) Anion Gap 12 mmol/L (5-15) Blood Urea Nitrogen 29 mg/dL (7-18) H Creatinine 1.2 MG/DL (0.55-1.30) Estimat Glomerular Filtration Rate > 60 mL/min (>60) Glucose Level 158 MG/DL (74-106) H Uric Acid 8.2 MG/DL (2.6-7.2) H Calcium Level 9.5 MG/DL (8.5-10.1) Phosphorus Level 3.8 MG/DL (2.5-4.9) Magnesium Level 1.7 MG/DL (1.8-2.4) L Total Bilirubin 1.6 MG/DL (0.2-1.0) H Direct Bilirubin 0.6 MG/DL (0.0-0.3) H Aspartate Amino Transf (AST/SGOT) 32 U/L (15-37) Alanine Aminotransferase (ALT/SGPT) 33 U/L (12-78) Alkaline Phosphatase 87 U/L (46-116) Pro-B-Type Natriuretic Peptide 2429 pg/mL (0-125) H Total Protein 7.2 G/DL (6.4-8.2) Albumin 3.1 G/DL (3.4-5.0) L Globulin 4.1 g/dL Albumin/Globulin Ratio 0.8 (1.0-2.7) L Microbiology Date/Time Source Procedure Growth Status 07/20/17 19:00 Indwelling Cath Urine Culture - Preliminary NO GROWTH AFTER 24 HOURS Resulted Objective HEENT: Atraumatic and normocephalic. Anicteric. Pupils are equal, round, and reactive to light and accommodation. Extraocular muscles intact. NECK: Hard to evaluate JVD. No carotid bruit. Carotid upstrokes 2+ bilaterally. CARDIOVASCULAR: Normal S1 and S2. PMI is at fourth intercostal space at the midclavicular line. LUNGS: Diminished breath sounds in both bases, some scattered crackles, and rhonchi. ABDOMEN: Distended. I do not appreciate any hepatosplenomegaly. Positive bowel sounds. EXTREMITIES: 2+ bilateral lower extremity edema, decreased scrotal edema. Sergio Dumas MD July 22, 2017 23:57
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
== END 2017-07-22 22:00 | disposition home or self-care (01) | DRG 194 ==
LOC: EDBD 12:02 → EMR 12:48 → 2E 12:58 → EDBEDREQ 13:02
DX: I11.0 Hypertensive heart disease with heart failure (principal); J96.01 Acute respiratory failure with hypoxia; N17.9 Acute kidney failure, unspecified; J18.9 Pneumonia, unspecified organism; Z68.42 Body mass index [BMI] 45.0-49.9, adult; I27.20 Pulmonary hypertension, unspecified; E11.65 Type 2 diabetes mellitus with hyperglycemia; E11.21 Type 2 diabetes mellitus with diabetic nephropathy; I50.23 Acute on chronic systolic (congestive) heart failure; I42.8 Other cardiomyopathies; I51.4 Myocarditis, unspecified; Z86.711 Personal history of pulmonary embolism; Z79.01 Long term (current) use of anticoagulants; L03.314 Cellulitis of groin; N49.2 Inflammatory disorders of scrotum; G47.33 Obstructive sleep apnea (adult) (pediatric); E78.5 Hyperlipidemia, unspecified; E66.01 Morbid (severe) obesity due to excess calories; J44.9 Chronic obstructive pulmonary disease, unspecified; N39.0 Urinary tract infection, site not specified; J98.11 Atelectasis; R94.5 Abnormal results of liver function studies
CPT/HCPCS: 36415; 36600; 71045; 76700; 80053; 80061; 80202; 81001; 82248; 82550; 82553; 82803; 82962; 82977; 83036; 83605; 83735; 83880; 84100; 84443; 84484; 84550; 85007; 85025; 85379; 85610; 86140; 86705; 86709; 86803; 87040; 87086; 87340; 93005; 93306; 93970; 94640; 94660; 94664; 94760; 99285; J1815; J7620; J8499